=== PATIENT | female | born 1935 | race Two or more races ===

== ENCOUNTER 2017-05-27 02:05 | Inpatient (IN) | END 2017-06-10 18:50 | disposition home health service (06) | DRG 441 ==

== ENCOUNTER 2017-07-15 14:53 | Emergency (ER) | END 2017-07-15 22:32 | disposition home or self-care (01) ==

== ENCOUNTER 2017-08-20 20:12 | Inpatient (IN) | END 2017-08-29 21:15 | disposition home health service (06) | DRG 690 ==

== ENCOUNTER 2017-12-02 11:59 | Inpatient (IN) | END 2017-12-10 18:15 | disposition home or self-care (01) | DRG 872 ==

== ENCOUNTER 2018-09-01 15:53 | Emergency (ER) | payer MEDICARE, OTHER ==
[~2018-09-01] VITALS: Wt 62.7 kg
[~2018-09-01 15:53] MED LIST: GABA300C16 PO; OMEP40CA6 PO; SPIR50TA PO
[2018-09-01] MEDS ORDERED: morphine 4 MG/ML VIAL IV STA (18:31)
[2018-09-01] MEDS ORDERED: ONDANSETRON 4 MG INJ IV STA (18:31)
[2018-09-01] MEDS ORDERED: SOD CHLORIDE 0.9% 500 ML IV STA (18:31)
[2018-09-01] MEDS ORDERED: CEFEPIME 1GM/50 ML (PMX) 50 ML IVPB ONE (19:30)
--- NOTE | 2018-09-01 20:25 | ERD ---
ER Documentation Chief Complaint Chief Complaint FLANK PAIN X 5 DAYS HPI 83-year-old woman with a history of urinary incontinence, chronic Lomeli catheter that was replaced last week presents with bilateral flank pain and suprapubic p ain times 2-3 days. She has had no fevers or chills, no vomiting or diarrhea, no complaints of chest pain or shortness of breath. Son was at the bedside denies that she has used antibiotics recently. ROS All systems reviewed and are negative except as per history of present illness. 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, portal hypertension, CHF, recurrent urinary retention, hypertension, urinary incontinence with chronic Lomeli catheter History of Surgery: Yes (CATARACT) Anesthesia Reaction: No Hx Neurological Disorder: No Hx Respiratory Disorders: No Hx Cardiac Disorders: Yes (HX CHF) Hx Psychiatric Problems: No Hx Miscellaneous Medical Probl: Yes (indwelling lomeli) Hx Alcohol Use: No Hx Substance Use: No Hx Tobacco Use: No Smoking Status: Never smoker FmHx Family History: No diabetes Physical Exam Vitals Vital Signs Date Temp Pulse Resp B/P (MAP) Pulse Ox O2 O2 Flow FiO2 Time Delivery Rate 09/01/18 80 18 141/95 96 Room Air 20:40 (110) 09/01/18 86 20 126/86 96 Room Air 18:35 (99) 09/01/18 98.2 92 18 147/82 99 16:19 (103) Physical Exam Const: Elderly woman, well-developed, no apparent distress, afebrile Head: Atraumatic Eyes: Normal Conjunctiva ENT: Normal External Ears, Nose and Mouth. Neck: Full range of motion. No meningismus. Resp: Clear to auscultation bilaterally Cardio: Regular rate and rhythm, no murmurs Abd: Soft, non tender, non distended. Normal bowel sounds Skin: No petechiae or rashes Back: No midline or flank tenderness Ext: No cyanosis, or edema Neur: Awake and alert x2, no focal deficits or facial asymmetry Psych: Normal Mood and Affect Result Diagram: 09/01/18184209/01/181842 Results 24 hrs Laboratory Tests Test 09/01/18 18:43 09/01/18 18:44 09/01/18 18:53 White Blood Count 4.3 10^3/ul Red Blood Count 4.08 10^6/ul Hemoglobin 10.2 g/dl Hematocrit 34.5 % Mean Corpuscular Volume 84.6 fl Mean Corpuscular Hemoglobin 25.0 pg Mean Corpuscular 29.6 g/dl Hemoglobin Concent Red Cell Distribution Width 17.0 % Platelet Count 96 10^3/UL Mean Platelet Volume 9.2 fl Immature Granulocytes % 0.500 % Neutrophils % 58.4 % Lymphocytes % 29.1 % Monocytes % 9.9 % Eosinophils % 1.6 % Basophils % 0.5 % Nucleated Red Blood Cells % 0.0 /100WBC Immature Granulocytes # 0.020 10^3/ul Neutrophils # 2.5 10^3/ul Lymphocytes # 1.2 10^3/ul Monocytes # 0.4 10^3/ul Eosinophils # 0.1 10^3/ul Basophils # 0.0 10^3/ul Nucleated Red Blood Cells # 0.0 10^3/ul Sodium Level 137 mmol/L Potassium Level 4.5 mmol/L Chloride Level 107 mmol/L Carbon Dioxide Level 24 mmol/L Anion Gap 6 Blood Urea Nitrogen 15 mg/dl Creatinine 0.80 mg/dl Est Glomerular Filtrat mL/min Rate mL/min Glucose Level 90 mg/dl Calcium Level 9.3 mg/dl Total Bilirubin 0.8 mg/dl Direct Bilirubin 0.00 mg/dl Indirect Bilirubin 0.8 mg/dl Aspartate Amino 70 IU/L Transf (AST/SGOT) Alanine 31 IU/L Aminotransferase (ALT/SGPT) Alkaline Phosphatase 170 IU/L Total Protein 8.2 g/dl Albumin 3.3 g/dl Globulin 4.90 g/dl Albumin/Globulin Ratio 0.67 Lipase 298 U/L Urine Color YELLOW Urine Clarity SLIGHTLY CLOUDY Urine pH 5.0 Urine Specific [place] 1.008 Urine Ketones NEGATIVE mg/dL Urine Nitrite POSITIVE mg/dL Urine Bilirubin NEGATIVE mg/dL Urine Urobilinogen NEGATIVE mg/dL Urine Leukocyte Esterase 2+ Reji/ul Urine Microscopic RBC 13 /HPF Urine Microscopic WBC 30 /HPF Urine Bacteria MODERATE /HPF Urine Hemoglobin 2+ mg/dL Urine Glucose NEGATIVE mg/dL Urine Total Protein NEGATIVE mg/dl Bedside Urine pH (LAB) 5.5 Bedside Urine Protein (LAB) Negative Bedside Urine Glucose (UA) Negative Bedside Urine Ketones (LAB) Negative Bedside Urine Blood 2+ Bedside Urine Nitrite (LAB) Positive Bedside Urine Leukocyte Esterase 1+ (L Current Medications Medications Dose Sig/Elbert Start Time Status Last (Trade) Ordered Route PRN Stop Time Admin Dose Reason Admin Sodium 500 ml @ Q1H STAT 09/01/18 DC 09/01/18 Chloride 500 mls/hr IV 18:31 18:48 09/01/18 19:30 Morphine 4 mg ONCE STAT 09/01/18 DC 09/01/18 Sulfate IV 18:31 18:47 (morphine) 09/01/18 18:33 Ondansetron 4 mg ONCE STAT 09/01/18 DC 09/01/18 HCl (Zofran IV 18:31 18:47 Inj) 09/01/18 18:33 Cefepime HCl 50 ml @ ONCE ONCE 09/01/18 DC 09/01/18 100 mls/hr IVPB 19:30 19:35 09/01/18 19:59 100 mg ONCE ONCE 09/01/18 DC 09/01/18 Phenazopyridi PO 20:30 20:28 ne HCl 09/01/18 20:31 (Pyridium) Procedures/MDM IV line was established patient was placed on satellite project site monitor rhythm strip revealed a sinus rhythm at about 80 bpm with upright P and T waves. Patient was afebrile CT scan of the abdomen and pelvis without contrast was performed,IMPRESSION: 1. Nodular liver surface, compatible with cirrhosis. 2. Mild pulmonary emphysema. 3. Coronary arterial and aortoiliac atherosclerotic calcifications. 4. Lomeli catheter balloon is within the urinary bladder. Multiple bladder diverticula and multiple small bladder calculi are again noted, unchanged. 5. Osteopenia. Chronic moderate compression deformity of T12. Chronic left sacroiliac joint erosive/degenerative changes, grossly stable. 6. No evidence of bowel obstruction, mass, lymphadenopathy, or acute inflammatory process. I administered morphine 4 mg IV, Zofran 4 mg IV, 1 L normal saline IV and cefepime 1 g IV. Lomeli catheter was replaced. Patient also received Pyridium 100 mg p.o. x1 CBC and electrolytes were normal, liver function tests were normal, urinalysis was positive for infection. Patient's vital signs are normal and pain has resolved, she wants to go home and her son who is at the bedside also prefers outpatient therapy. She will be to discharge and prescribed oral antibiotics. Differential diagnoses considered, included but not limited to acute coronary syndrome, pulmonary embolism, aortic dissection, abdominal aortic aneurysm, sepsis, stroke, meningitis, encephalitis, pneumonia, appendicitis, c holecystitis, bowel obstruction, pyelonephritis, nephrolithiasis, cystitis, as well as metabolic, hematologic, and electrolyte abnormalities. As well as abscess, cellulitis, fractures, and dislocations. Patient feels much better at this time, and vital signs are normal, symptoms have improved. I did give strict instructions to return to the ED if symptoms continue or worsen, patient will otherwise follow-up with primary care physician. Patient understood instructions and agreed to plan. Disclaimer: Inadvertent spelling and grammatical errors are likely due to EHR/dictation software use and do not reflect on the overall quality of patient care. Also, please note that the electronic time recorded on this note does not necessarily reflect the actual time of the patient encounter. Departure Diagnosis: Primary Impression: Urinary incontinence Urinary Incontinence type: unspecified incontinence Qualified Codes: R32 - Unspecified urinary incontinence Additional Impression: Acute UTI Condition: BASIL Pike MD Sep 01, 2018 20:25
[2018-09-01] MEDS ORDERED: PHEN-537 PO (20:26)
[2018-09-01] MEDS ORDERED: CEPH-443 PO (20:26)
[2018-09-01] MEDS ORDERED: PHENAZOPYRIDINE 100 MG TAB PO ONE (20:30)
[2018-09-01 20:40] VITALS: BP 141/95; PULSE 80; RESP 18
== END 2018-09-01 20:40 | disposition home or self-care (01) ==
LOC: E/R 15:53
DX: N39.0 Urinary tract infection, site not specified (principal); I11.0 Hypertensive heart disease with heart failure; I50.9 Heart failure, unspecified
CPT/HCPCS: 36415; 51702; 74176; 80053; 81001; 83690; 85025; 87086; 96374; 96375; 99285; J0692; J2270; J2405; J7040; 81003

== ENCOUNTER 2018-09-03 09:31 | Emergency (ER) | payer MEDICARE, OTHER ==
[~2018-09-03] VITALS: Ht 154.9 cm; Wt 62.0 kg
[~2018-09-03 09:31] MED LIST changes: +CEPH-443 PO; +PHEN-537 PO
[2018-09-03 09:33] VITALS: Ht 154.9 cm; Wt 62.0 kg
--- NOTE | 2018-09-03 10:14 | ERD ---
ER Documentation Chief Complaint Chief Complaint pt is bib son with c/o back pain /dysuria since Sunday HPI This is an 83-year-old female with a past medical history of CHF, GERD, neuropathy, chronic urinary incontinence status post chronic indwelling Lomeli catheter who is presenting again to the emergency department for persistent moderate aching sore burning suprapubic and lower back pain. The patient presented to the emergency department on September 01 for similar symptoms. She was diagnosed with a urinary tract infection. There is no evidence of pyelonephritis or nephrolithiasis. She had a reassuring workup and was ultimately discharged with prescriptions for Pyridium and Keflex. The patient does have a urine culture completed that reveals resistance to cephalosporins. Her UTI is sensitive to Macrobid and Bactrim. The patient presents today for persistent discomfort. She continues to deny any fever or chills. She has not had any nausea or vomiting. She has not had any constipation or diarrhea. She has not had any black or bloody or tarry stools. The patient does report that her urine has turned an orange color since being started on the Pyridium. The patient has had no headache or vision changes. The patient does not endorse neck pain. The patient denies lightheadedness or dizziness. The patient has had no chest pain or trouble breathing. The patient has had no focal deficits. The patient has had no weakness or numbness or tingling to the face or extremities. ROS All systems reviewed and are negative except as per history of present illness. Medications Home Meds Active Scripts Phenazopyridine Hcl* (Pyridium*) 100 Mg Tab, 100 MG PO BID PRN for URINARY PAIN, #6 TAB Prov:BASIL JORDAN MD 09/01/18 Cephalexin* (Keflex*) 500 Mg Capsule, 500 MG PO TID for 7 Days, CAP Prov:BASIL JORDAN MD 09/01/18 Reported Medications Gabapentin* (Gabapentin*) 300 Mg Capsule, 300 MG PO TID, #90 CAP 12/02/17 Omeprazole* (Omeprazole*) 40 Mg Capsule.dr, 40 MG PO DAILY, #30 CAP 12/02/17 Spironolactone* (Aldactone*) 50 Mg Tablet, 50 MG PO DAILY, #30 TAB 12/02/17 Allergies Allergies: Coded Allergies: No Known Allergy (Unverified , 12/02/17) PMhx/Soc History of Surgery: Yes (CATARACT) Anesthesia Reaction: No Hx Neurological Disorder: No Hx Respiratory Disorders: No Hx Cardiac Disorders: Yes (CHF) Hx Psychiatric Problems: No Hx Miscellaneous Medical Probl: Yes (indwelling lomeli) Hx Alcohol Use: No Hx Substance Use: No Hx Tobacco Use: No FmHx Family History: No diabetes Physical Exam Vitals Vital Signs Date Temp Pulse Resp B/P (MAP) Pulse Ox O2 O2 Flow FiO2 Time Delivery Rate 09/03/18 97.8 66 18 152/71 96 09:33 (98) Physical Exam Const: No apparent distress, well-developed, well-nourished Head: Normocephalic, Atraumatic Eyes: Normal Conjunctiva. Extraocular movements grossly intact. ENT: Normal External Ears, Nose and Mouth. Neck: Full range of motion. No meningismus. Resp: Clear to auscultation bilaterally, No wheezes, rales or rhonchi Cardio: Regular rate and rhythm. No murmurs, rubs or gallops Abd: Soft, non distended. Mild suprapubic tenderness. Normal bowel sounds : Lomeli catheter in place Skin: No petechiae or rashes Back: No midline tenderness. No CVA tenderness Ext: No cyanosis, or edema Neur: Awake and alert, oriented 4. Cranial nerves intact. No facial droop. Normal strength, sensation and coordination. Psych: Normal Mood and Affect Procedures/MDM MDM The patient's presentation warrants further investigation. Previous medical records, if available, were reviewed. LABS The patient's laboratory testing was reviewed from 2 days ago. No emergent treatment was required unless described below. CBC: Mild leukopenia without shift, no evidence of a systemic infection. Mild normocytic anemia, not emergent. Thrombocytopenia, chronic. Chemistry: No E/o severe acidosis or alkalosis or renal failure or diabetic ketoacidosis. Mild transaminitis, known cirrhosis. Lipase: No E/o pancreatitis Urine: E/o acute infection without hematuria Urinalysis was also sent off today. IMAGING Imaging and Radiology interpretation reviewed from [address] Abd/Pelvis 1. Nodular liver surface, compatible with cirrhosis. 2. Mild pulmonary emphysema. 3. Coronary arterial and aortoiliac atherosclerotic calcifications. 4. Lomeli catheter balloon is within the urinary bladder. Multiple bladder diverticula and multiple small bladder calculi are again noted, unchanged. 5. Osteopenia. Chronic moderate compression deformity of T12. Chronic left sacroiliac joint erosive/degenerative changes, grossly stable. 6. No evidence of bowel obstruction, mass, lymphadenopathy, or acute inflammatory process. Electronically viewed and signed by Cuong Pimentel MD, on 09/01/2018 19:54 TREATMENT/DISPOSITION The patient presents for persistent low back and suprapubic discomfort. The patient has a known urinary tract infection, and was discharged with prescriptions for Pyridium and Keflex. The urine culture is back and is not sensitive to Keflex. It is sensitive to Macrobid and Bactrim. It is good to avoid Macrobid in elderly population. I do not typically use Bactrim in the [facility] population given its interaction with multiple medications. However, the patient is not on any medications that it will emergently interact with. I do feel that Bactrim would be appropriate in this setting. The patient reports no worsening of symptoms. She had a full workup performed [address] including a [address] of the abdomen and pelvis that did not reveal any emergent pathology. I did send off a repeat urinalysis, but I do not feel that further laboratory studies are warranted at this time. I do not suspect pyelonephritis. I do not suspect nephrolithiasis. The patient was given a dose of Toradol in the emergency department to help with her discomfort. DISCHARGE Upon reevaluation of the patient, symptoms have improved. No emergent diagnoses were identified. At this time, I feel that the patient stable for discharge. The patient was instructed to follow-up with a primary care physician in 1-3 days. The patient will be given strict precautions with which to return to the emergency department. Prescriptions: Bactrim. The patient's family was instructed to stop the Keflex. She may continue to use the Pyridium as previously prescribed. The patient's blood pressure was elevated at greater than 120/80 while in the emergency department. The patient was otherwise stable with no evidence of hypertensive urgency or emergency. The patient does not require admission for blood pressure control. I have discussed with the patient the risks of hypertension. I have instructed the patient to return to the ER for any new or worsening symptoms including chest pain, shortness of breath, headache, blurred vision, confusion, nausea, vomiting or LOC. I have advised the patient to follow up with the primary care physician for outpatient monitoring and treatment for hypertension in 1-3 days. Disclaimer: Inadvertent spelling and grammatical errors are likely due to EHR/dictation software use and do not reflect on the overall quality of patient care. Note that the electronic time recorded on this note does not necessarily reflect the actual time of the patient encounter. Departure Diagnosis: Primary Impression: Urinary tract infection Urinary tract infection type: acute cystitis Hematuria presence: without hematuria Qualified Codes: N30.00 - Acute cystitis without hematuria Additional Impressions: Dysuria Suprapubic pain Low back pain Chronicity: unspecified Back pain laterality: bilateral Sciatica presence: without sciatica Qualified Codes: M54.5 - Low back pain Chronic indwelling Lomeli catheter Condition: Stable Patient Instructions: Understanding Urinary Tract Infections (UTIs) Additional Instructions: Thank you for for coming to [facility] for your care today. Please ask your nurse or provider if you have questions about your care today and do not leave until all your questions have been answered. Please use any me dications given as directed and follow-up with your doctor (or the doctor you were referred to) in the next 1-3 days. If you do not have a primary care doctor you may follow up at the [facility] or [facility] (listed below). You may also use motrin and tylenol as needed for fever and/or pain unless instructed otherwise by your provider or nurse. Indications for more urgent follow-up have been discussed, but you may return to the Emergency Department at ANY time for any worrisome or worsening symptoms. If you have abdominal pain, please know that no test or exam you received is perfect and you should follow up within 8 hours for continued pain. If you had any imaging studies today, such as an X-Ray or CT Scan, these studies will be reviewed later by a radiologist. You will be called if there are important findings that were not identified today, so make sure the contact i nformation you provided at registration is correct. If you received any narcotic pain control medicine today, such as Vicodin, Morphine or Dilaudid, your coordination and judgment may be affected for a number of hours. Please do not drive or operate heavy machinery, and you may want someone to assist you at home. If you were given a prescription for narcotic medication, be aware that it is very addictive- use sparingly and only if necessary. PLEASE SEEK FURTHER EVALUATION AND MANAGEMENT AT YOUR DOCTORS OFFICE WITHIN THE NEXT 1-3 DAYS. IT IS YOUR RESPONSIBILITY TO MAKE AN APPOINTMENT FOR FOLOW-UP CARE. IF YOU HAVE A PRIMARY DOCTOR, PLEASE CALL THEIR OFFICE TO SCHEDULE AN APPOINTMENT FOR FOLLOW UP. IF YOU DO NOT HAVE A PRIMARY DOCTOR YOU CAN CALL OUR PHYSICIAN REFERRAL HOTLINE AT IF YOU CAN NOT AFFORD TO SEE A PHYSICIAN YOU CAN CHOSE FROM THE FOLLOWING [facility]: [facility] [address] [facility] [address] [facility]. [facility] [address] [facility] [address] [facility] [address] [facility]. [facility]. [address] DARBY WILSON MD Sep 03, 2018 10:02
[2018-09-03] MEDS ORDERED: KETOROLAC 15 MG INJ IM STA (10:15)
[2018-09-03] MEDS ORDERED: SULF1TAB31 PO (10:22)
[2018-09-03] MEDS ORDERED: IBUP-1561 PO (10:34)
[2018-09-03 10:37] VITALS: BP 145/80; PULSE 76; RESP 24
== END 2018-09-03 10:37 | disposition home or self-care (01) ==
LOC: E/R 09:31
DX: N30.00 Acute cystitis without hematuria (principal); M54.5 Low back pain; I50.9 Heart failure, unspecified; T83.9XXA Unspecified complication of genitourinary prosthetic device, implant and graft, initial encounter; Y73.2 Prosthetic and other implants, materials and accessory gastroenterology and urology devices associated with adverse incidents
CPT/HCPCS: 81001; 96372; 99284; J1885

== ENCOUNTER 2018-09-06 06:15 | Inpatient (IN) | payer MEDICARE, OTHER ==
[~2018-09-06] VITALS: Ht 175.3 cm; Wt 65.3 kg
[~2018-09-06 06:15] MED LIST changes: +IBUP-1561 PO; +SULF1TAB31 PO
[2018-09-06] MEDS ORDERED: CEFEPIME 2GM/50 ML (PMX) 50 ML IVPB STA (07:29)
[2018-09-06] MEDS ORDERED: KETOROLAC 15 MG INJ IV STA (07:29)
[2018-09-06] MEDS ORDERED: SODIUM CHLORIDE 0.9% 1L BAG IV* STA (07:29)
[2018-09-06] MEDS ORDERED: ACETAMINOPHEN 325 MG TAB PO PRN ×2 (08:00→17:00)
[2018-09-06] MEDS ORDERED: ONDANSETRON 4 MG INJ IV PRN ×2 (08:00→17:00)
--- NOTE | 2018-09-06 11:31 | ERD ---
ER Documentation Chief Complaint Chief Complaint BILAT FLANK PAIN HPI Patient is an 83-year-old female with hypertension who presents for flank pain. The patient has a urine infection Keflex initially and then switched over to Bactrim which was sensitive per the previous culture however the patient is still having symptoms. Upon review of old medical records this is the patient's seventh visit to the ER is in 2018. ROS All systems reviewed and are negative except as per history of present illness. Medications Home Meds Active Scripts Ibuprofen* (Motrin*) 400 Mg Tab, 400 MG PO Q6H PRN for PAIN AND OR ELEVATED TEMP, #30 TAB Prov:DARBY MENDOZA MD 09/03/18 Sulfamethoxazole/Trimethoprim* (Bactrim Ds* Tablet) 1 Each Tablet, 1 TAB PO BID, #14 TAB Prov:DARBY MENDOZA MD 09/03/18 Discontinued Reported Medications Gabapentin* (Gabapentin*) 300 Mg Capsule, 300 MG PO TID, #90 CAP 12/02/17 Omeprazole* (Omeprazole*) 40 Mg Capsule.dr, 40 MG PO DAILY, #30 CAP 12/02/17 Spironolactone* (Aldactone*) 50 Mg Tablet, 50 MG PO DAILY, #30 TAB 12/02/17 Discontinued Scripts Phenazopyridine Hcl* (Pyridium*) 100 Mg Tab, 100 MG PO BID PRN for URINARY PAIN, #6 TAB Prov:BASIL JORDAN MD 09/01/18 Cephalexin* (Keflex*) 500 Mg Capsule, 500 MG PO TID for 7 Days, CAP Prov:BASIL JORDAN MD 09/01/18 Allergies Allergies: Coded Allergies: No Known Allergy (Unverified , 09/06/18) PMhx/Soc History of Surgery: Yes (CATARACT) Anesthesia Reaction: No Hx Neurological Disorder: No Hx Respiratory Disorders: No Hx Cardiac Disorders: Yes (CHF) Hx Psychiatric Problems: No Hx Miscellaneous Medical Probl: Yes (indwelling lomeli) Hx Alcohol Use: No Hx Substance Use: No Hx Tobacco Use: No Smoking Status: Never smoker FmHx Family History: No diabetes Physical Exam Vitals Vital Signs Date Temp Pulse Resp B/P (MAP) Pulse Ox O2 O2 Flow FiO2 Time Delivery Rate 09/06/18 97.6 77 18 162/91 99 Room Air 09:30 (114) 09/06/18 97.6 101 18 132/68 97 06:18 (89) Physical Exam Const: Moderate distress Head: Atraumatic Eyes: Normal Conjunctiva ENT: Normal External Ears, Nose and Mouth. Neck: Full range of motion. No meningismus. Resp: Clear to auscultation bilaterally Cardio: Regular rate and rhythm, no murmurs Abd: Soft, non tender, non distended. Normal bowel sounds Skin: No petechiae or rashes Back: No midline or flank tenderness Ext: No cyanosis, or edema Neur: Awake and alert Psych: Normal Mood and Affect Result Diagram: 09/06/1880409/06/18804 Results 24 hrs Laboratory Tests Test 09/06/18 08:01 09/06/18 08:05 09/06/18 09:00 POC Venous Lactate 1.9 mmol/L White Blood Count 3.2 10^3/ul Red Blood Count 4.09 10^6/ul Hemoglobin 10.4 g/dl Hematocrit 34.5 % Mean Corpuscular Volume 84.4 fl Mean Corpuscular Hemoglobin 25.4 pg Mean Corpuscular 30.1 g/dl Hemoglobin Concent Red Cell Distribution Width 17.7 % Platelet Count 96 10^3/UL Mean Platelet Volume 10.1 fl Immature Granulocytes % 0.300 % Neutrophils % 65.0 % Lymphocytes % 22.9 % Monocytes % 10.5 % Eosinophils % 1.0 % Basophils % 0.3 % Nucleated Red Blood Cells % 0.0 /100WBC Immature Granulocytes # 0.010 10^3/ul Neutrophils # 2.1 10^3/ul Lymphocytes # 0.7 10^3/ul Monocytes # 0.3 10^3/ul Eosinophils # 0.0 10^3/ul Basophils # 0.0 10^3/ul Nucleated Red Blood Cells # 0.0 10^3/ul Prothrombin Time 14.9 Sec Prothrombin Time Ratio 1.2 INR International 1.16 Normalized Ratio Activated Partial Thromboplast 33.0 Sec Time Sodium Level 139 mmol/L Potassium Level 4.5 mmol/L Chloride Level 107 mmol/L Carbon Dioxide Level 23 mmol/L Anion Gap 9 Blood Urea Nitrogen 13 mg/dl Creatinine 0.99 mg/dl Est Glomerular Filtrat mL/min Rate mL/min Glucose Level 98 mg/dl Calcium Level 9.3 mg/dl Total Bilirubin 0.6 mg/dl Direct Bilirubin 0.00 mg/dl Indirect Bilirubin 0.6 mg/dl Aspartate Amino 67 IU/L Transf (AST/SGOT) Alanine 27 IU/L Aminotransferase (ALT/SGPT) Alkaline Phosphatase 150 IU/L Troponin I < 0.012 ng/ml Total Protein 7.9 g/dl Albumin 3.4 g/dl Globulin 4.50 g/dl Albumin/Globulin Ratio 0.75 Urine Color YELLOW Urine Clarity CLEAR Urine pH 5.0 Urine Specific [place] 1.005 Urine Ketones NEGATIVE mg/dL Urine Nitrite NEGATIVE mg/dL Urine Bilirubin NEGATIVE mg/dL Urine Urobilinogen NEGATIVE mg/dL Urine Leukocyte Esterase NEGATIVE Reji/ul Urine Microscopic RBC 2 /HPF Urine Microscopic WBC 2 /HPF Urine Bacteria FEW /HPF Urine Hemoglobin 1+ mg/dL Urine Glucose NEGATIVE mg/dL Urine Total Protein NEGATIVE mg/dl Current Medications Medications Dose Sig/Elbert Start Time Status Last (Trade) Ordered Route PRN Stop Time Admin Dose Reason Admin Sodium 1,640 ml BOLUS OVER 2 09/06/18 DC 09/06/18 Chloride HOURS STAT 07:29 08:11 (NS) IV* 09/06/18 07:30 Cefepime HCl 50 ml @ ONCE STAT 09/06/18 DC 09/06/18 100 mls/hr IVPB 07:29 08:11 09/06/18 07:58 Ketorolac 15 mg ONCE STAT 09/06/18 DC 09/06/18 Tromethamine IV 07:29 08:12 (Toradol) 09/06/18 07:30 Ondansetron 4 mg BRIDGE ORDER 09/06/18 HCl (Zofran PRN IV 08:00 Inj) NAUSEA/VOMITI 09/07/18 07:59 NG 650 mg ER BRIDGE 09/06/18 Acetaminophen PRN PO 08:00 (Tylenol .MILD PAIN 09/07/18 07:59 Tab) 1-3 OR TEMP Procedures/MDM EKG read by me: Rate/Rhythm: Regular rate and rhythm at a normal rate Intervals: Normal Impression: No evidence of ischemia or arrhythmia Chest x-ray read by radiology. Sepsis Documentation: Patient's infectious symptoms have not stabilized and the patient is at risk of rapid decompensation. The patient will be admitted for careful hydration, antibiotic therapy, and infectious source control. SEVERE SEPSIS CRITERIA: Infectious source: Pyelonephritis End organ damage indicated by: No endorgan damage at this time SEPSIS MANAGEMENT Time of recognition of sepsis: 804. Time of recognition of severe sepsis: No severe sepsis at this time. Time of recognition of septic shock: No septic shock at this time. 3 HOUR BUNDLE Blood cultures x 2 before broad-spectrum antibiotics: Yes 30 ml/kg NS bolus completed Initial lactate 1.9 Repeat lactate pending SEPTIC SHOCK ASSESSMENT: No lactic acid > 4.0 No persistent hypotension (SBP < 90 or 40 mmHg drop, MAP < 65) despite 30 mL/kg IV fluid bolus VOLUME REASSESSMENT FOR SEPTIC SHOCK: No septic shock at this time PERSISTENT HYPOTENSION TREATMENT: Comfort care no Central line not Required Vasopressor started not required I considered further perfusion assessment with CVP measurement, SCVO2, bedside ultrasound volume assessment, passive leg raise, trial of further fluid bolus. And proceeded with 30 ml/kg fluid bolus of NSS, broad spectrum antibiotics, and admission. The patient requires inpatient admission as she has failed outpatient treatment at this time. I have admitted the patient to Dr. Burr is Dr. Su admitted the patient within the last year. CRITICAL CARE Critical care time 35 minutes Emergent fluid management while maintaining close respiratory support. Provision of immediate and broad-spectrum antibiotic therapy. Simultaneous assessment for possible sources in order to direct targeted therapy. Consideration for invasive and chemical support to prevent cardiopulmonary collapse. Critical care time is independent of procedures performed. Departure Diagnosis: Primary Impression: Pyelonephritis Additional Impression: Flank pain Condition: MISAEL Bernabe MD Sep 06, 2018 11:31
[2018-09-06] MEDS ORDERED: morphine 4 MG/ML VIAL IV STA (14:21)
[2018-09-06 16:10] VITALS: Ht 175.3 cm; Wt 65.3 kg
[2018-09-06] MEDS ORDERED: POTASSIUM CHLORIDE 100 ML IVPB ONE (17:00)
--- NOTE | 2018-09-06 17:01 | HP ---
Date/Time of Note Date/Time of Note DATE: 09/06/18 TIME: 16:38 Assessment/Plan VTE Prophylaxis SCD contraindicated: other Pharmacological prophylaxis: other Pharm contraindication: other Lines/Catheters IV Catheter Type (from Nrsg): Saline Lock Urinary Cath still in place: Yes Reason Cath still needed: urinary retention Assessment/Plan Assessment/Plan -Pyelonephritis admit to [facility] - ID consult- Dr Marcos notified - See admission orders - pain control - am labs - Flank PAIN 2/2 to above - Urine retention-sp indwelling cath - Nephrology consult w/ Dr Modi - Thrombocytopenia- Platelets 96; no bleeding reported - monitor CBC - CHF- was taking Aldactone but any more - will get cardiology consult for symptoms getting worse - HTN- BP stable - GERD- PPI for GI prophylaxis - SCD for DVT prophylaxis Patient seen in collaboration with Dr Burr. dw staff Result Diagram: 09/06/18 0809/06/18 0805 Results 24hrs Laboratory Tests Test 09/06/18 08:01 09/06/18 08:05 09/06/18 09:00 09/06/18 11:58 POC Venous Lactate 1.9 White Blood Count 3.2 #L Red Blood Count 4.09 L Hemoglobin 10.4 L Hematocrit 34.5 L Mean Corpuscular 84.4 Volume Mean Corpuscular 25.4 L Hemoglobin Mean Corpuscular 30.1 L Hemoglobin Concent Red Cell 17.7 H Distribution Width Platelet Count 96 L Mean Platelet Volume 10.1 Immature 0.300 Granulocytes % Neutrophils % 65.0 Lymphocytes % 22.9 Monocytes % 10.5 Eosinophils % 1.0 Basophils % 0.3 Nucleated Red Blood 0.0 Cells % Immature 0.010 Granulocytes # Neutrophils # 2.1 Lymphocytes # 0.7 L Monocytes # 0.3 Eosinophils # 0.0 Basophils # 0.0 Nucleated Red Blood 0.0 Cells # Prothrombin Time 14.9 Prothrombin Time 1.2 Ratio INR International 1.16 Normalized Ratio Activated 33.0 Partial Thromboplast Time Sodium Level 139 Potassium Level 4.5 Chloride Level 107 Carbon Dioxide Level 23 Anion Gap 9 Blood Urea Nitrogen 13 Creatinine 0.99 Est Glomerular Filtrat Rate mL/min Glucose Level 98 Calcium Level 9.3 Total Bilirubin 0.6 Direct Bilirubin 0.00 Indirect Bilirubin 0.6 Aspartate Amino 67 H Transf (AST/SGOT) Alanine 27 Aminotransferase (AL T/SGPT) Alkaline Phosphatase 150 H Troponin I < 0.012 Total Protein 7.9 Albumin 3.4 Globulin 4.50 H Albumin/Globulin 0.75 Ratio Urine Color YELLOW Urine Clarity CLEAR Urine pH 5.0 Urine Specific 1.005 [place] Urine Ketones NEGATIVE Urine Nitrite NEGATIVE Urine Bilirubin NEGATIVE Urine Urobilinogen NEGATIVE Urine Leukocyte NEGATIVE Esterase Urine Microscopic 2 RBC Urine Microscopic 2 WBC Urine Bacteria FEW A Urine Hemoglobin 1+ H Urine Glucose NEGATIVE Urine Total Protein NEGATIVE Lactic Acid Level 2.1 *H HPI/ROS Admit Date/Time Admit Date/Time Sep 06, 2018 at 15:57 Hx of Present Illness BILAT FLANK PAIN HPI Patient is an 83-year-old female with hypertension who presents for flank pain. The patient has a urine infection Keflex initially and then switched over to Bactrim which was sensitive per the previous culture however the patient is still having symptoms. Upon review of old medical records this is the patient's seventh visit to the ER is in 2018. ROS All systems reviewed and are negative except as per history of present illness. Medications Home Meds Active Scripts Ibuprofen* (Motrin*) 400 Mg Tab, 400 MG PO Q6H PRN for PAIN AND OR ELEVATED TEMP, #30 TAB Prov:DARBY MENDOZA MD 09/03/18 Sulfamethoxazole/Trimethoprim* (Bactrim Ds* Tablet) 1 Each Tablet, 1 TAB PO BID, #14 TAB Prov:DARBY MENDOZA MD 09/03/18 Discontinued Reported Medications Gabapentin* (Gabapentin*) 300 Mg Capsule, 300 MG PO TID, #90 CAP 12/02/17 Omeprazole* (Omeprazole*) 40 Mg Capsule.dr, 40 MG PO DAILY, #30 CAP 12/02/17 Spironolactone* (Aldactone*) 50 Mg Tablet, 50 MG PO DAILY, #30 TAB 12/02/17 Discontinued Scripts Phenazopyridine Hcl* (Pyridium*) 100 Mg Tab, 100 MG PO BID PRN for URINARY PAIN, #6 TAB Prov:BASIL JORDAN MD 09/01/18 Cephalexin* (Keflex*) 500 Mg Capsule, 500 MG PO TID for 7 Days, CAP Prov:BASIL JORDAN MD 09/01/18 Allergies Allergies: Coded Allergies: No Known Allergy (Unverified , 09/06/18) ROS HPI Patient is an 83-year-old female with an indwelling lomeli catheter. Patient has hx of hypertension, chf and is admitted with c/o flank pain. The patient has a urine infection -treated with Keflex initially and then on Bactrim as her culture showed sensitivity to later one. Denies any fever; chest pain, shortness of breath, palpitations, headache,blurry vision, focal weakness or numbness, bi lateral calf pain, nausea/vomitting. Patien is seen in ER; family at bed side- all Qs answered. ROS All systems reviewed and are negative except as per history of present illness. Medications Home Meds Active Scripts Ibuprofen* (Motrin*) 400 Mg Tab, 400 MG PO Q6H PRN for PAIN AND OR ELEVATED TEMP, #30 TAB Prov:DARBY MENDOZA MD 09/03/18 Sulfamethoxazole/Trimethoprim* (Bactrim Ds* Tablet) 1 Each Tablet, 1 TAB PO BID, #14 TAB Prov:DARBY MENDOZA MD 09/03/18 Discontinued Reported Medications Gabapentin* (Gabapentin*) 300 Mg Capsule, 300 MG PO TID, #90 CAP 12/02/17 Omeprazole* (Omeprazole*) 40 Mg Capsule.dr, 40 MG PO DAILY, #30 CAP 12/02/17 Spironolactone* (Aldactone*) 50 Mg Tablet, 50 MG PO DAILY, #30 TAB 12/02/17 Discontinued Scripts Phenazopyridine Hcl* (Pyridium*) 100 Mg Tab, 100 MG PO BID PRN for URINARY PAIN, #6 TAB Prov:BASIL JORDAN MD 09/01/18 Cephalexin* (Keflex*) 500 Mg Capsule, 500 MG PO TID for 7 Days, CAP Prov:BASIL JORDAN MD 09/01/18 Allergies Allergies: Coded Allergies: No Known Allergy (Unverified , 09/06/18) PMhx/Soc History of Surgery: Yes (CATARACT) Anesthesia Reaction: No Hx Neurological Disorder: No Hx Respiratory Disorders: No Hx Cardiac Disorders: Yes (CHF) Hx Psychiatric Problems: No Hx Miscellaneous Medical Probl: Yes (indwelling lomeli) Hx Alcohol Use: No Hx Substance Use: No Hx Tobacco Use: No Smoking Status: Never smoker PMH/Family/Social Past Medical History PMhx/Soc History of Surgery: Yes (CATARACT) Anesthesia Reaction: No Hx Neurological Disorder: No Hx Respiratory Disorders: No Hx Cardiac Disorders: Yes (CHF) Hx Psychiatric Problems: No Hx Miscellaneous Medical Probl: Yes (indwelling lomeli) Hx Alcohol Use: No Hx Substance Use: No Hx Tobacco Use: No Smoking Status: Never smoker FmHx Family History: No diabetes Medications Current Medications Ondansetron HCl (Zofran Inj) 4 mg BRIDGE ORDER PRN IV NAUSEA/VOMITING; Start 09/06/18 at 08:00; Stop 09/07/18 at 07:59 Acetaminophen (Tylenol Tab) 650 mg ER BRIDGE PRN PO .MILD PAIN 1-3 OR TEMP; Start 09/06/18 at 08:00; Stop 09/07/18 at 07:59 Coded Allergies: No Known Allergy (Unverified , 09/06/18) Past Surgical History Past Surgical Hx: no surgical history Family History Significant Family History: no pertinent family hx Social History Alcohol Use: none Smoking Status: Never smoker Drug Use: none Exam/Review of Systems Vital Signs Vitals Vital Signs Date Temp Pulse Resp B/P (MAP) Pulse Ox O2 O2 Flow FiO2 Time Delivery Rate 09/06/18 97.6 80 18 137/85 96 Room Air 15:14 (102) Exam Constitutional: alert, well developed Psych: nl mood/affect Head: atraumatic Eyes: nl lids, nl sclera ENMT: nl external ears & nose Neck: non-tender Respiratory: diminished breath sounds Cardiovascular: nl pulses, other Gastrointestinal: soft, non-tender Musculoskeletal: nl extremities to inspection Extremities: normal pulses Neurological: nl speech Skin: nl turgor Lymph: nontender ABRAHAM DOYLE Sep 06, 2018 16:49
--- NOTE | 2018-09-06 17:47 | CONS ---
DATE OF ADMISSION: 09/06/2018 DATE OF CONSULTATION: 09/06/2018 TYPE OF CONSULTATION: Infectious Disease. REASON FOR CONSULTATION: Antibiotic management. HISTORY OF PRESENT ILLNESS: Karly Ibarra is an 83-year-old female who comes in with bilateral flank p ain and is being seen for antibiotic management. Past problems include: 1. Hypertension. 2. Status post cataract surgery with lens implants. 3. Congestive heart failure. 4. Indwelling [place] catheter. Acutely, the patient had a urinary tract infection and was placed on Keflex then switch to Bactrim, w hich should have been effective, but the patient still is having symptoms. Therefore, she was admitt ed. On admission, white count was 3.2, H and H 10.4 and 34.5, platelet count 96,000. BUN and creati nine 13/0.99, glucose of 98. PHYSICAL EXAMINATION: GENERAL: The patient is in mild distress. VITAL SIGNS: Stable. She is afebrile. SKIN: Without generalized rash. HEENT: Within normal limits. NECK: Supple. LYMPH NODES: None palpable. CHEST: Decreased breath sounds at the bases. HEART: Without murmur or gallop. ABDOMEN: Soft and nontender, without organosplenomegaly or masses. EXTREMITIES: Without cyanosis, clubbing, or edema. RECTAL AND GENITAL: Deferred. NEUROLOGIC: No focal neurological abnormality. LABORATORY DATA: Her white count was 3.2 with 65% neutrophils. A chest x-ray showed no acute infilt rate. She has chronic right middle lobe atelectasis and she was placed on cefepime. Cultures of cou rse are pending, blood, urine, stool. IMPRESSION AND PLAN: It would be interesting to have the culture and sensitivity of the initial orga nism. However, the cefepime should be adequate at this time. She probably has pyelonephritis and ma y have fevers which may last for up to a week. I will dictate my findings to, I believe, Dr. Jarod hernandez Dictated By: BERRY LARSEN MD, JD/MOLLY Conf#: [id number] DID#: [id number]
[2018-09-06] MEDS: DEXTROSE 5%-0.45% NACL 1,000 ML IV SCH (18:02)
--- NOTE | 2018-09-06 19:08 | CONS ---
DATE OF ADMISSION: 09/06/2018 DATE OF CONSULTATION: TYPE OF CONSULTATION: Gastroenterology. Dear Dr. Saucedo: Thank you for asking me to see Ms. Ibarra in GI consultation. HISTORY OF PRESENT ILLNESS: The patient, as you know, is an 83-year-old [place] female, is admitted t o the hospital because of urinary tract infection. Apparently, she was treated as an outpatient whic h did not respond to treatment; hence, she is admitted to the hospital. She has abnormal liver funct ions; hence a GI consultation is requested. Upon discussion with Dr. Saucedo, it is known that she has hepatitis C and also cirrhosis. The patient denies for having any nausea, vomiting, abdominal pain or GI bleeding. SOCIAL HISTORY: The patient does not smoke or drink. PAST MEDICAL HISTORY: Indicates history of hypertension. MEDICATIONS PRIOR TO ADMISSION: Include: 1. Motrin. 2. Bactrim. 3. Gabapentin. 4. Omeprazole. 5. Aldactone. 6. Pyridium. 7. Keflex. In the hospital, she is on: 1. Zofran. 2. Tylenol. PHYSICAL EXAMINATION: GENERAL: The patient is an 83-year-old [place] female who at this time is alert. She is not in distr ess. She is thin built. VITAL SIGNS: She is afebrile. CARDIOVASCULAR: Normal heart sounds. RESPIRATORY: Normal breath sounds. ABDOMEN: Showed unremarkable findings. LABORATORY WORKUP: AST is 67, ALT is 27, alkaline phosphatase is 150, albumin is 3.4. Potassium 4.5 . INR 1.15. WBC count 3200, hemoglobin 10.4. CLINICAL IMPRESSION: The patient is presenting with history of abnormal liver functions. She is kno wn to have hepatitis C. Perhaps, she is also known to have hepatitis C cirrhosis. I doubt if we are dealing with any malignant process of the liver. PLAN: At this time, I recommend ultrasound of the upper abdomen. Once again, Dr. Saucedo, thank you for this consultation. Dictated By: YO DIAL/MOLLY Conf#: [id number] DID#: [id number] CC: BERRY LARSEN MD; ROSITA SAUCEDO MD;*EndCC*
[2018-09-06 20:00] VITALS: BP 118/68; PULSE 87; RESP 18
[2018-09-06] MEDS: morphine 2 MG INJ IV PRN (22:00)
[2018-09-07 02:03] VITALS: BP 124/61; PULSE 80; RESP 18
[2018-09-07] MEDS: PANTOPRAZOLE (EC) 40 MG TAB PO SCH (05:23)
[2018-09-07 08:00] VITALS: BP 128/64; PULSE 87; RESP 18
[2018-09-07 14:00] VITALS: BP 129/60; PULSE 95; RESP 20
[2018-09-07] MEDS: DEXTROSE 5%-0.45% NACL 1,000 ML IV SCH (14:02)
[2018-09-07] MEDS: morphine 2 MG INJ IV PRN ×2 (14:03→20:53)
--- NOTE | 2018-09-07 15:39 | CONS ---
Assessment/Plan Assessment/Plan Hospital Course (Demo Recall) ID NOTE TOTAL ABX DAY #1 CURRENT ABX=>* Zyvox S/P Cefepime x1 24H INTERVAL SUMMARY * Awake - smiling, polite, no fevers, VSS, NAD, no complaints offered MICRO * 09/06/18 BCX (-) * 09/06/18 URINE CX: URINE CULTURE Preliminary Organism 1 ENTEROCOCCUS SPECIES COLONY COUNT 20,000 - 30,000 CFU/ml EXAM GENERAL: Afebrile, VSS, NAD, HEENT: Unremarkable, no thrush NECK: Supple, trachea midline CHEST: Equal chest rise bilaterally, without dyspnea on observation HEART: Pulse RRR ABDOMEN: Soft, NT EXTREMITIES: Warm ID ASSESSMENT 82 yo F admit with: 1. Recurrent urinary tract infection with culture growing Enterococcus 2. History of hepatitis C cirrhosis with portal hypertension and transaminitis 3. Pancytopenia. ( - )MRSA Nares INVASIVES: PIV ABX ALLERGY: KNDA CURRENT ABX=> TOTAL ABX DAY #1 CURRENT ABX=>* Zyvox S/P Cefepime x1 ID RECOMMENDATIONS 1. 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 F/U on final micro pending Consultation Date/Type/Reason Admit Date/Time Sep 06, 2018 at 15:57 Initial Consult Date Date/Time of Note DATE: 09/07/18 TIME: 15:39 Exam/Review of Systems Exam Vitals Vital Signs Date Temp Pulse Resp B/P (MAP) Pulse Ox O2 O2 Flow FiO2 Time Delivery Rate 09/07/18 98.8 95 20 129/60 96 14:00 (83) 09/06/18 Room Air 15:14 Intake and Output 09/06/18 09/06/18 09/07/18 1515:00 23:00 07:00 OutputOutput Total 1000 ml BalanceBalance -1000 ml Results Result Diagram: 09/07/18 0458 09/07/18 0458 Results 24hrs Laboratory Tests Test 09/06/18 19:00 09/07/18 04:58 Alpha Fetoprotein 140.00 H White Blood Count 2.8 L Red Blood Count 3.75 L Hemoglobin 9.4 L Hematocrit 31.8 L Mean Corpuscular Volume 84.8 Mean Corpuscular Hemoglobin 25.1 L Mean Corpuscular Hemoglobin Concent 29.6 L Red Cell Distribution Width 17.7 H Platelet Count 96 L Mean Platelet Volume 10.1 Immature Granulocytes % 0.000 L Neutrophils % 57.3 Lymphocytes % 27.0 Monocytes % 11.4 H Eosinophils % 3.6 Basophils % 0.7 Nucleated Red Blood Cells % 0.0 Immature Granulocytes # 0.000 Neutrophils # 1.6 Lymphocytes # 0.8 Monocytes # 0.3 Eosinophils # 0.1 Basophils # 0.0 Nucleated Red Blood Cells # 0.0 Sodium Level 137 Potassium Level 4.8 Chloride Level 109 Carbon Dioxide Level 24 Anion Gap 4 L Blood Urea Nitrogen 11 Creatinine 0.81 Est Glomerular Filtrat Rate mL/min Glucose Level 105 Calcium Level 8.7 Medications Medication Current Medications Dextrose/Sodium Chloride 1,000 ml @ 50 mls/hr Q20H IV Last administered on 09/07/18at 14:02; Admin Dose 50 MLS/HR; Start 09/06/18 at 17:00 Morphine Sulfate (morphine) 2 mg Q4H PRN IV SEVERE PAIN LEVEL 7-10 Last administered on 09/07/18at 14:03; Admin Dose 2 MG; Start 09/06/18 at 17:00 Pantoprazole (Protonix Tab) 40 mg DAILY@06 PO ; Start 09/07/18 at 06:00 Acetaminophen (Tylenol Tab) 650 mg Q6H PRN PO MILD PAIN(1-3)OR ELEVATED TEMP; Start 09/06/18 at 17:00 Ondansetron HCl (Zofran Inj) 4 mg Q6H PRN IV NAUSEA AND/OR VOMITING Last administered on 09/06/18at 21:57; Admin Dose 4 MG; Start 09/06/18 at 17:00 CONCHITA GUTIERREZ NP Sep 07, 2018 15:39
[2018-09-07] MEDS ORDERED: IOHEXOL 14.3 MG(I)/ML (ADULT) BTL PO ONE (18:00)
--- NOTE | 2018-09-07 18:35 | PN ---
Date/Time of Note Date/Time of Note DATE: 09/07/18 TIME: 18:34 Assessment/Plan VTE Prophylaxis Risk score (from Nsg)>0 risk: 4 SCD applied (from Nsg): Yes Lines/Catheters IV Catheter Type (from Nrsg): Peripheral IV Urinary Cath still in place: Yes Assessment/Plan Assessment/Plan -Pyelonephritis - ID consult- - pain control Flank PAIN CHF HTN GERD- PPI SCD Dw Dr Whittington Result Diagram: 09/07/188 09/07/18 0458 Results 24hrs Laboratory Tests Test 09/06/18 19:00 09/07/18 04:58 Alpha Fetoprotein 140.00 H White Blood Count 2.8 L Red Blood Count 3.75 L Hemoglobin 9.4 L Hematocrit 31.8 L Mean Corpuscular Volume 84.8 Mean Corpuscular Hemoglobin 25.1 L Mean Corpuscular Hemoglobin Concent 29.6 L Red Cell Distribution Width 17.7 H Platelet Count 96 L Mean Platelet Volume 10.1 Immature Granulocytes % 0.000 L Neutrophils % 57.3 Lymphocytes % 27.0 Monocytes % 11.4 H Eosinophils % 3.6 Basophils % 0.7 Nucleated Red Blood Cells % 0.0 Immature Granulocytes # 0.000 Neutrophils # 1.6 Lymphocytes # 0.8 Monocytes # 0.3 Eosinophils # 0.1 Basophils # 0.0 Nucleated Red Blood Cells # 0.0 Sodium Level 137 Potassium Level 4.8 Chloride Level 109 Carbon Dioxide Level 24 Anion Gap 4 L Blood Urea Nitrogen 11 Creatinine 0.81 Est Glomerular Filtrat Rate mL/min Glucose Level 105 Calcium Level 8.7 Exam/Review of Systems Exam Vitals Vital Signs Date Temp Pulse Resp B/P (MAP) Pulse Ox O2 O2 Flow FiO2 Time Delivery Rate 09/07/18 98.8 95 20 129/60 96 14:00 (83) 09/06/18 Room Air 15:14 Intake and Output 09/06/18 09/06/18 09/07/18 1515:00 23:00 07:00 OutputOutput Total 1000 ml BalanceBalance -1000 ml Constitutional: alert, well developed Psych: nl mood/affect Head: atraumatic Eyes: nl lids, nl sclera ENMT: nl external ears & nose Neck: non-tender Respiratory: clear to auscultation Cardiovascular: nl pulses, other Gastrointestinal: soft, non-tender Musculoskeletal: muscle weakness Extremities: normal pulses Neurological: nl mental status, nl speech Lymph: nontender Results Results 24hrs Laboratory Tests Test 09/06/18 19:00 09/07/18 04:58 Alpha Fetoprotein 140.00 H White Blood Count 2.8 L Red Blood Count 3.75 L Hemoglobin 9.4 L Hematocrit 31.8 L Mean Corpuscular Volume 84.8 Mean Corpuscular Hemoglobin 25.1 L Mean Corpuscular Hemoglobin Concent 29.6 L Red Cell Distribution Width 17.7 H Platelet Count 96 L Mean Platelet Volume 10.1 Immature Granulocytes % 0.000 L Neutrophils % 57.3 Lymphocytes % 27.0 Monocytes % 11.4 H Eosinophils % 3.6 Basophils % 0.7 Nucleated Red Blood Cells % 0.0 Immature Granulocytes # 0.000 Neutrophils # 1.6 Lymphocytes # 0.8 Monocytes # 0.3 Eosinophils # 0.1 Basophils # 0.0 Nucleated Red Blood Cells # 0.0 Sodium Level 137 Potassium Level 4.8 Chloride Level 109 Carbon Dioxide Level 24 Anion Gap 4 L Blood Urea Nitrogen 11 Creatinine 0.81 Est Glomerular Filtrat Rate mL/min Glucose Level 105 Calcium Level 8.7 Medications Medication Current Medications Dextrose/Sodium Chloride 1,000 ml @ 50 mls/hr Q20H IV Last administered on 09/07/18at 14:02; Admin Dose 50 MLS/HR; Start 09/06/18 at 17:00 Morphine Sulfate (morphine) 2 mg Q4H PRN IV SEVERE PAIN LEVEL 7-10 Last administered on 09/07/18at 14:03; Admin Dose 2 MG; Start 09/06/18 at 17:00 Pantoprazole (Protonix Tab) 40 mg DAILY@06 PO ; Start 09/07/18 at 06:00 Acetaminophen (Tylenol Tab) 650 mg Q6H PRN PO MILD PAIN(1-3)OR ELEVATED TEMP; Start 09/06/18 at 17:00 Ondansetron HCl (Zofran Inj) 4 mg Q6H PRN IV NAUSEA AND/OR VOMITING Last administered on 09/06/18at 21:57; Admin Dose 4 MG; Start 09/06/18 at 17:00 Linezolid (Zyvox) 600 mg BID PO ; Start 09/07/18 at 21:00 ABRAHAM DOYLE Sep 07, 2018 18:35
[2018-09-07 19:35] VITALS: BP 144/86; PULSE 101; RESP 18
[2018-09-07] MEDS: ZYVOX 600 MG TAB PO SCH (20:38)
--- NOTE | 2018-09-07 22:54 | CONS ---
DATE OF ADMISSION: 09/06/2018 DATE OF CONSULTATION: SUBJECTIVE: The patient at this time does not have any abdominal pain. She does have low back pain. She has a history of cirrhosis secondary to hepatitis C. PHYSICAL EXAMINATION: GENERAL: The patient is alert. VITAL SIGNS: Temperature 98.8, pulse is 95, blood pressure is 129/60. CARDIOVASCULAR: Normal heart sounds. RESPIRATORY: Normal breath sounds. ABDOMEN: Unremarkable. LABORATORY WORKUP: The potassium 4.8. Alpha fetoprotein is 140, which is elevated. The hemoglobin 9.4. The AST is 67, ALT is 27, alkaline phosphatase is 150. The ultrasound of the abdomen shows cirrhosis, simple cyst in the left lobe of the liver, mild gallbl adder wall thickening with no evidence of gallstones, mild right-sided hydronephrosis. CLINICAL IMPRESSION: The patient has cirrhosis secondary to hepatitis C. In view of the elevated al pha fetoprotein level, I would recommend CAT scan of the abdomen. Dictated By: YO ROACH MD NC/NTS Conf#: [id number] DID#: [id number] CC: ROSITA SAUCEDO MD;*EndCC*
[2018-09-08 02:11] VITALS: BP 117/63; PULSE 79; RESP 17
[2018-09-08] MEDS: PANTOPRAZOLE (EC) 40 MG TAB PO SCH (05:44)
[2018-09-08] MEDS ORDERED: IOHEXOL 14.3 MG(I)/ML (ADULT) BTL PO SCH (06:00)
[2018-09-08 08:01] VITALS: BP 138/70; PULSE 76; RESP 17
[2018-09-08] MEDS: DEXTROSE 5%-0.45% NACL 1,000 ML IV SCH ×2 (08:52→13:08)
[2018-09-08] MEDS: ZYVOX 600 MG TAB PO SCH ×2 (08:52→21:05)
[2018-09-08] MEDS ORDERED: SOD CHLORIDE 0.9% 100 ML ONE (11:41)
[2018-09-08] MEDS ORDERED: IOHEXOL 300MG/ML 150 ML BTL ONE (11:41)
--- NOTE | 2018-09-08 13:27 | PN ---
Date/Time of Note Date/Time of Note DATE: 09/08/18 TIME: 13:17 Assessment/Plan VTE Prophylaxis Risk score (from Ns)>0 risk: 4 SCD applied (from [facility] [place], [place]): Yes SCD contraindicated: other Pharmacological prophylaxis: other Pharm contraindication: other Lines/Catheters IV Catheter Type (from Nrsg): Peripheral IV Urinary Cath still in place: Yes Reason Cath still needed: urinary retention Assessment/Plan Assessment/Plan -Pyelonephritis - ID consult- - pain control -Leukopenia - monitor CBC - Elevated AFP - hEM /ONC follows -Hydronephrosis - urology consult- dr colin notified - pain control CHF HTN GERD- PPI SCD Dw Dr Whittington Result Diagram: 09/07/1845709/07/18457 Subjective 24 Hr Interval Summary Free Text/Dictation CT Abdomen pending Exam/Review of Systems Exam Vitals Vital Signs Date Temp Pulse Resp B/P (MAP) Pulse Ox O2 O2 Flow FiO2 Time Delivery Rate 09/08/18 97.7 76 17 138/70 94 Room Air 08:01 (92) Intake and Output 09/07/18 09/07/18 09/08/18 1414:59 22:59 06:59 IntakeIntake Total 1000 ml 500 ml OutputOutput Total 1200 ml 1200 ml 1300 ml BalanceBalance -200 ml -700 ml -1300 ml Medications Medication Current Medications Dextrose/Sodium Chloride 1,000 ml @ 50 mls/hr Q20H IV Last administered on 09/08/18at 13:08; Admin Dose 50 MLS/HR; Start 09/06/18 at 17:00 Morphine Sulfate (morphine) 2 mg Q4H PRN IV SEVERE PAIN LEVEL 7-10 Last administered on 09/07/18at 20:53; Admin Dose 2 MG; Start 09/06/18 at 17:00 Pantoprazole (Protonix Tab) 40 mg DAILY@06 PO ; Start 09/07/18 at 06:00 Acetaminophen (Tylenol Tab) 650 mg Q6H PRN PO MILD PAIN(1-3)OR ELEVATED TEMP; Start 09/06/18 at 17:00 Ondansetron HCl (Zofran Inj) 4 mg Q6H PRN IV NAUSEA AND/OR VOMITING Last administered on 09/06/18at 21:57; Admin Dose 4 MG; Start 09/06/18 at 17:00 Linezolid (Zyvox) 600 mg BID PO Last administered on 09/07/18at 20:38; Admin Dose 600 MG; Start 09/07/18 at 21:00 ABRAHAM DOYLE Sep 08, 2018 13:27
--- NOTE | 2018-09-08 14:04 | CONS ---
Assessment/Plan Assessment/Plan Hospital Course (Demo Recall) ID NOTE TOTAL ABX DAY #2 CURRENT ABX=>* Zyvox #2 + Diflucan #1 S/P Cefepime x1 24H INTERVAL SUMMARY * A/A/O -- VSS, NAD, ABD suprapubic pain improved, no fevers MICRO * 09/06/18 BCX (-) * 09/06/18 URINE CX: URINE CULTURE Final Organism 1 ENTEROCOCCUS SPECIES COLONY COUNT 20,000 - 30,000 CFU/ml Organism 2 RO ALBICANS COLONY COUNT <10,000 CFU/ml ENT SPS M.I.C. RX --------- --- AMPICILLIN >=32 R CIPROFLOXACIN >=8 R LEVOFLOXACIN >=8 R PENICILLIN-G >=64 R VANCOMYCIN <=0.5 S EXAM GENERAL: Afebrile, VSS, NAD, HEENT: Unremarkable, no thrush NECK: Supple, trachea midline CHEST: Equal chest rise bilaterally, without dyspnea on observation HEART: Pulse RRR ABDOMEN: Soft, NT EXTREMITIES: Warm ID ASSESSMENT 82 yo F admit with: 1. Recurrent urinary tract infection with culture growing Enterococcus * 09/06/18 URINE CX: URINE CULTURE Final Organism 1 ENTEROCOCCUS SPECIES COLONY COUNT 20,000 - 30,000 CFU/ml Organism 2 RO ALBICANS COLONY COUNT <10,000 CFU/ml 2. History of hepatitis C cirrhosis with portal hypertension and transaminitis 3. Pancytopenia. ( - )MRSA Nares INVASIVES: PIV ABX ALLERGY: KNDA TOTAL ABX DAY #2 CURRENT ABX=>* Zyvox #2 + Diflucan #1 S/P Cefepime x1 ID RECOMMENDATIONS 1. Continue current ABX for recurrent complicated UTI/Pyelonephritis 2. 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 Consultation Date/Type/Reason Admit Date/Time Sep 06, 2018 at 15:57 Initial Consult Date Date/Time of Note DATE: 09/08/18 TIME: 13:59 Exam/Review of Systems Exam Vitals Vital Signs Date Temp Pulse Resp B/P (MAP) Pulse Ox O2 O2 Flow FiO2 Time Delivery Rate 09/08/18 97.7 76 17 138/70 94 Room Air 08:01 (92) Intake and Output 09/07/18 09/07/18 09/08/18 1515:00 23:00 07:00 IntakeIntake Total 1000 ml 500 ml OutputOutput Total 1200 ml 1200 ml 1300 ml BalanceBalance -200 ml -700 ml -1300 ml Results Result Diagram: 09/07/18 0458 09/07/18 0458 Medications Medication Current Medications Dextrose/Sodium Chloride 1,000 ml @ 50 mls/hr Q20H IV Last administered on 09/08/18 13:08; Admin Dose 50 MLS/HR; Start 09/06/18 at 17:00 Morphine Sulfate (morphine) 2 mg Q4H PRN IV SEVERE PAIN LEVEL 7-10 Last administered on 09/07/18at 20:53; Admin Dose 2 MG; Start 09/06/18 at 17:00 Pantoprazole (Protonix Tab) 40 mg DAILY@06 PO ; Start 09/07/18 at 06:00 Acetaminophen (Tylenol Tab) 650 mg Q6H PRN PO MILD PAIN(1-3)OR ELEVATED TEMP; Start 09/06/18 at 17:00 Ondansetron HCl (Zofran Inj) 4 mg Q6H PRN IV NAUSEA AND/OR VOMITING Last admin istered on 09/06/18at 21:57; Admin Dose 4 MG; Start 09/06/18 at 17:00 Linezolid (Zyvox) 600 mg BID PO Last administered on 09/07/18at 20:38; Admin Dose 600 MG; Start 09/07/18 at 21:00 CONCHITA GUTIERREZ NP Sep 08, 2018 14:04
[2018-09-08] MEDS ORDERED: FLUCONAZOLE 200 MG (PMX) 100 ML IVPB ONE (15:00)
[2018-09-08 15:01] VITALS: BP 136/71; PULSE 79; RESP 17
[2018-09-08 19:54] VITALS: BP 126/67; PULSE 77; RESP 20
--- NOTE | 2018-09-08 20:34 | CONS ---
Assessment/Plan Assessment/Plan Hospital Course (Demo Recall) 83-year-old female was admitted to the hospital because of abdominal pain. Patient is known to have a history of hepatitis C with cirrhosis and ascites, history of urinary retention and chronic indwelling Canas catheter which is changed in the emergency room on different occasions. The patient presented to the emergency room 1 week earlier on September 01, 2018 because of abdominal pain and the urine culture at that time showed 100,000 E. coli ESBL. The patient was initially treated with Keflex and then that was changed to Bactrim. The patient did not get better and she presented on 06 September and was admitted to the hospital. A repeat urine culture however this time did show enterococcus and Eve albicans. Abdominal ultrasound did show mild right hydronephrosis but the CT scan did not show any hydronephrosis. The CT scan was reported as: Kidneys/Ureters: Hypoattenuating lesions in the bilateral kidneys, some which represent cysts, others of which are too small to further characterize though may represent additional cysts. Bladder: Canas catheter in a partially collapsed bladder with multiple bladder diverticula. Mild layering stones/calcification is seen in the bladder diverticula. A nonspecific 4 mm linear radiopacity in the region of the right UVJ, not seen on the prior exam, nonspecific though may reflect layering stone in a fold of collapsed bladder. No upstream hydroureternephrosis. The calcification that she has on the CT scan measuring 4 mm could represent a distal right ureteral stone and that is small enough that she should be able to pass it. The E. coli ESBL urinary tract infection that was diagnosed 7 days earlier was sensitive to the Bactrim which she received. And her last urine culture now showing enterococcus and Eve albicans and she is being treated that for both of these. The mild right hydronephrosis could be related to the infection as well as possibility of distal right ureteral stone that could be causing her the pain as well as some mild right hydronephrosis. Recommendation is to hydrate her well and strain her urine for stones and continue the antibiotics. Consultation Date/Type/Reason Admit Date/Time Sep 06, 2018 at 15:57 Date of Consultation: Sep 08, 2018 Type of Consult Urology Reason for Consultation Right hydronephrosis and urinary tract infection Requesting Provider: ROSITA SAUCEDO MD Date/Time of Note DATE: 09/08/18 TIME: 20:22 Hx of Present Illness 83-year-old female was admitted to the hospital because of abdominal pain. Patient is known to have a history of hepatitis C with cirrhosis and ascites, history of urinary retention and chronic indwelling Canas catheter which is changed in the emergency room on different occasions. The patient presented to the emergency room 1 week earlier on September 01, 2018 because of abdominal pain and the urine culture at that time showed 100,000 E. coli ESBL. The patient was initially treated with Keflex and then that was changed to Bactrim. The patient did not get better and she presented on 06 September and was admitted to the hospital. A repeat urine culture however this time did show enterococcus and Eve albicans. Abdominal ultrasound did show mild right hydronephrosis but the CT scan did not show any hydronephrosis. The CT scan was reported as: Kidneys/Ureters: Hypoattenuating lesions in the bilateral kidneys, some which represent cysts, others of which are too small to further characterize though may represent additional cysts. Bladder: Canas catheter in a partially collapsed bladder with multiple bladder diverticula. Mild layering stones/calcification is seen in the bladder diverticula. A nonspecific 4 mm linear radiopacity in the region of the right UVJ, not seen on the prior exam, nonspecific though may reflect layering stone in a fold of collapsed bladder. No upstream hydroureternephrosis. Constitutional: no complaints Eyes: no complaints Respiratory: no complaints Cardiovascular: no complaints; No chest pain Gastrointestinal: pain (Mid abdomen) Genitourinary: other (Indwelling Canas catheter) Musculoskeletal: no complaints Skin: no complaints Past Medical History Medical History: urinary tract infection Home Meds Active Scripts Ibuprofen* (Motrin*) 400 Mg Tab, 400 MG PO Q6H PRN for PAIN AND OR ELEVATED TEMP, #30 TAB Prov:DARBY MENDOZA MD 09/03/18 Sulfamethoxazole/Trimethoprim* (Bactrim Ds* Tablet) 1 Each Tablet, 1 TAB PO BID, #14 TAB Prov:DARBY MENDOZA MD 09/03/18 Discontinued Reported Medications Gabapentin* (Gabapentin*) 300 Mg Capsule, 300 MG PO TID, #90 CAP 12/02/17 Omeprazole* (Omeprazole*) 40 Mg Capsule.dr, 40 MG PO DAILY, #30 CAP 12/02/17 Spironolactone* (Aldactone*) 50 Mg Tablet, 50 MG PO DAILY, #30 TAB 12/02/17 Discontinued Scripts Phenazopyridine Hcl* (Pyridium*) 100 Mg Tab, 100 MG PO BID PRN for URINARY PAIN, #6 TAB Prov:BASIL JORDAN MD 09/01/18 Cephalexin* (Keflex*) 500 Mg Capsule, 500 MG PO TID for 7 Days, CAP Prov:BASIL JORDAN MD 09/01/18 Medications Current Medications Dextrose/Sodium Chloride 1,000 ml @ 50 mls/hr Q20H IV Last administered on 09/08/18at 13:08; Admin Dose 50 MLS/HR; Start 09/06/18 at 17:00 Morphine Sulfate (morphine) 2 mg Q4H PRN IV SEVERE PAIN LEVEL 7-10 Last administered on 09/07/18at 20:53; Admin Dose 2 MG; Start 09/06/18 at 17:00 Pantoprazole (Protonix Tab) 40 mg DAILY@06 PO ; Start 09/07/18 at 06:00 Acetaminophen (Tylenol Tab) 650 mg Q6H PRN PO MILD PAIN(1-3)OR ELEVATED TEMP Last administered on 09/08/18at 16:32; Admin Dose 650 MG; Start 09/06/18 at 17:00 Ondansetron HCl (Zofran Inj) 4 mg Q6H PRN IV NAUSEA AND/OR VOMITING Last administered on 09/06/18at 21:57; Admin Dose 4 MG; Start 09/06/18 at 17:00 Linezolid (Zyvox) 600 mg BID PO Last administered on 09/07/18at 20:38; Admin Dose 600 MG; Start 09/07/18 at 21:00 Fluconazole (Diflucan) 100 mg DAILY PO ; Start 09/09/18 at 09:00; Stop 09/12/18 at 08:59 Trazodone HCl (Desyrel) 25 mg HS PO ; Start 09/08/18 at 21:00 Allergies: Coded Allergies: No Known Allergy (Unverified , 09/06/18) Past Surgical History Past Surgical Hx: no surgical history Social History Alcohol Use: none Smoking Status: Never smoker Drug Use: none Exam/Review of Systems Exam Vitals Vital Signs Date Temp Pulse Resp B/P (MAP) Pulse Ox O2 O2 Flow FiO2 Time Delivery Rate 09/08/18 98.7 77 20 126/67 95 19:54 (86) 09/08/18 Room Air 15:01 Intake and Output 09/07/18 09/07/18 09/08/18 1414:59 22:59 06:59 IntakeIntake Total 1000 ml 500 ml OutputOutput Total 1200 ml 1200 ml 1300 ml BalanceBalance -200 ml -700 ml -1300 ml Constitutional: alert (Does not speak [place]ian) Head: normocephalic Eyes: nl conjunctiva Neck: supple Respiratory: No wheezing Cardiovascular: No jugular venous distention (JVD) Gastrointestinal: soft, non-tender Genitourinary - Female: other (Pelvic exam showed no mass and no discharge) Musculoskeletal: nl extremities to inspection Extremities: No calf tenderness Neurological: nl mental status Results Result Diagram: 09/07/1845709/07/[address] scan of the abdomen and pelvis was reported as far as for the kidney and the bladder: Kidneys/Ureters: Hypoattenuating lesions in the bilateral kidneys, some which represent cysts, others of which are too small to further characterize though may represent additional cysts. Bladder: Canas catheter in a partially collapsed bladder with multiple bladder diverticula. Mild layering stones/calcification is seen in the bladder diverticula. A nonspecific 4 mm linear radiopacity in the region of the right UVJ, not seen on the prior exam, nonspecific though may reflect layering stone in a fold of collapsed bladder. No upstream hydroureternephrosis. Medications Medication Current Medications Dextrose/Sodium Chloride 1,000 ml @ 50 mls/hr Q20H IV Last administered on 09/08/18at 13:08; Admin Dose 50 MLS/HR; Start 09/06/18 at 17:00 Morphine Sulfate (morphine) 2 mg Q4H PRN IV SEVERE PAIN LEVEL 7-10 Last administered on 09/07/18at 20:53; Admin Dose 2 MG; Start 09/06/18 at 17:00 Pantoprazole (Protonix Tab) 40 mg DAILY@06 PO ; Start 09/07/18 at 06:00 Acetaminophen (Tylenol Tab) 650 mg Q6H PRN PO MILD PAIN(1-3)OR ELEVATED TEMP Last administered on 09/08/18at 16:32; Admin Dose 650 MG; Start 09/06/18 at 17:00 Ondansetron HCl (Zofran Inj) 4 mg Q6H PRN IV NAUSEA AND/OR VOMITING Last administered on 09/06/18at 21:57; Admin Dose 4 MG; Start 09/06/18 at 17:00 Linezolid (Zyvox) 600 mg BID PO Last administered on 09/07/18at 20:38; Admin Dose 600 MG; Start 09/07/18 at 21:00 Fluconazole (Diflucan) 100 mg DAILY PO ; Start 09/09/18 at 09:00; Stop 09/12/18 at 08:59 Trazodone HCl (Desyrel) 25 mg HS PO ; Start 09/08/18 at 21:00 CLEMENT KRAUS MD Sep 08, 2018 20:32
[2018-09-08] MEDS: traZODone 50 MG TAB PO SCH (21:04)
[2018-09-09 02:05] VITALS: BP 114/60; PULSE 79; RESP 18
[2018-09-09] MEDS: DEXTROSE 5%-0.45% NACL 1,000 ML IV SCH ×2 (05:00→11:48)
[2018-09-09] MEDS: PANTOPRAZOLE (EC) 40 MG TAB PO SCH (05:21)
[2018-09-09 07:52] VITALS: BP 130/64; PULSE 72; RESP 17
[2018-09-09] MEDS: FLUCONAZOLE 100 MG TAB PO SCH (09:00)
[2018-09-09] MEDS: ZYVOX 600 MG TAB PO SCH ×2 (09:00→21:46)
[2018-09-09] MEDS ORDERED: IOHEXOL 14.3 MG(I)/ML (ADULT) BTL PO ONE (09:30)
[2018-09-09] MEDS: morphine 2 MG INJ IV PRN ×2 (09:45→14:58)
--- NOTE | 2018-09-09 12:19 | CONS ---
Assessment/Plan Assessment/Plan Hospital Course (Demo Recall) #Elevated AFP #Hep C cirrhosis #Pyelonephritis #Leukopenia - 2/2 Cirrhosis #CHF #HTN -Given the elevated AFP in the setting of cirrhosis, will check a triple phase CT per liver protocol to definitively rule out HCC -patient's blood counts are low 2/2 to her Hep C cirrhosis but I do not think she need blood transfusion or growth factor at this time -continue management of CHF and HTN per PMD Thank you for the opportunity to participate in this patients care A total of 40 minutes of face to face time was spent speaking with the patient, of which greater than 50% was spent in counseling and coordination of care and the detailed question and answer session. Consultation Date/Type/Reason Admit Date/Time Sep 06, 2018 at 15:57 Date of Consultation: Sep 09, 2018 Type of Consult oncology Reason for Consultation elevated AFP Requesting Provider: ROSITA SAUCEDO MD Date/Time of Note DATE: 09/09/18 TIME: 12:17 Hx of Present Illness MS Ibarra is a pleasant 83 yo female with history of HTN, Hep C cirrhosis and chronic indwelling lomeli who initially presented to [facility] on 09/06/18 with flank pain. Ultrasound demonstrated mild right hydronephrosis. Pt was initially placed on Keflex and then switched to Bactrim and is now on Linezolid. part of her inpatient workup, pt had an abdominal ultrasound which demonstrated a simple cycle in the left lobe of the liver. She was also noted to have an elevated AFP 140. We were thus consulted for further workup. Constitutional: poor po Eyes: no complaints ENT: no complaints Respiratory: no complaints Cardiovascular: no complaints Gastrointestinal: no complaints, decreased appetite Genitourinary: no complaints Musculoskeletal: bone/joint pain Skin: no complaints Past Medical History CHF HTN GERD Hep C cirrhosis chronic indwelling lomeli Medical History: urinary tract infection Home Meds Active Scripts Ibuprofen* (Motrin*) 400 Mg Tab, 400 MG PO Q6H PRN for PAIN AND OR ELEVATED TEMP, #30 TAB Prov:DARBY MENDOZA MD 09/03/18 Sulfamethoxazole/Trimethoprim* (Bactrim Ds* Tablet) 1 Each Tablet, 1 TAB PO BID, #14 TAB Prov:DARBY MENDOZA MD 09/03/18 Discontinued Reported Medications Gabapentin* (Gabapentin*) 300 Mg Capsule, 300 MG PO TID, #90 CAP 12/02/17 Omeprazole* (Omeprazole*) 40 Mg Capsule.dr, 40 MG PO DAILY, #30 CAP 12/02/17 Spironolactone* (Aldactone*) 50 Mg Tablet, 50 MG PO DAILY, #30 TAB 12/02/17 Discontinued Scripts Phenazopyridine Hcl* (Pyridium*) 100 Mg Tab, 100 MG PO BID PRN for URINARY PAIN, #6 TAB Prov:BASIL JORDAN MD 09/01/18 Cephalexin* (Keflex*) 500 Mg Capsule, 500 MG PO TID for 7 Days, CAP Prov:BASIL JORDAN MD 09/01/18 Medications Current Medications Dextrose/Sodium Chloride 1,000 ml @ 50 mls/hr Q20H IV Last administered on 09/09/18at 11:48; Admin Dose 50 MLS/HR; Start 09/06/18 at 17:00 Morphine Sulfate (morphine) 2 mg Q4H PRN IV SEVERE PAIN LEVEL 7-10 Last administered on 09/09/18at 09:45; Admin Dose 2 MG; Start 09/06/18 at 17:00 Pantoprazole (Protonix Tab) 40 mg DAILY@06 PO Last administered on 09/09/18at 05:21; Admin Dose 40 MG; Start 09/07/18 at 06:00 Acetaminophen (Tylenol Tab) 650 mg Q6H PRN PO MILD PAIN(1-3)OR ELEVATED TEMP Last administered on 09/08/18at 16:32; Admin Dose 650 MG; Start 09/06/18 at 17:00 Ondansetron HCl (Zofran Inj) 4 mg Q6H PRN IV NAUSEA AND/OR VOMITING Last adm inistered on 09/06/18at 21:57; Admin Dose 4 MG; Start 09/06/18 at 17:00 Linezolid (Zyvox) 600 mg BID PO Last administered on 09/08/18at 21:05; Admin Dose 600 MG; Start 09/07/18 at 21:00 Fluconazole (Diflucan) 100 mg DAILY PO ; Start 09/09/18 at 09:00; Stop 09/12/18 at 08:59 Trazodone HCl (Desyrel) 25 mg HS PO Last administered on 09/08/18at 21:04; Admin Dose 25 MG; Start 09/08/18 at 21:00 Allergies: Coded Allergies: No Known Allergy (Unverified , 09/06/18) Past Surgical History Past Surgical Hx: no surgical history Family History Significant Family History: no pertinent family hx Social History Alcohol Use: none Smoking Status: Never smoker Drug Use: none Exam/Review of Systems Exam Vitals Vital Signs Date Temp Pulse Resp B/P (MAP) Pulse Ox O2 O2 Flow FiO2 Time Delivery Rate 09/09/18 98.0 72 17 130/64 97 Room Air 07:52 (86) Intake and Output 09/08/18 09/08/18 09/09/18 1414:59 22:59 06:59 IntakeIntake Total 850 ml 1000 ml 630 ml OutputOutput Total 1350 ml 3400 ml BalanceBalance 850 ml -350 ml -2770 ml Constitutional: alert, oriented, frail Psych: anxiety, depression Head: normocephalic Eyes: nl conjunctiva ENMT: nl external ears & nose Neck: supple Respiratory: clear to auscultation Cardiovascular: regular rate and rhythm Gastrointestinal: soft Musculoskeletal: nl extremities to inspection Results Result Diagram: 09/07/18 0458 09/07/18 0458 Results 24hrs Laboratory Tests Test 09/09/18 06:21 Lactate Dehydrogenase 572 Medications Medication Current Medications Dextrose/Sodium Chloride 1,000 ml @ 50 mls/hr Q20H IV Last administered on 09/09/18at 11:48; Admin Dose 50 MLS/HR; Start 09/06/18 at 17:00 Morphine Sulfate (morphine) 2 mg Q4H PRN IV SEVERE PAIN LEVEL 7-10 Last administered on 09/09/18at 09:45; Admin Dose 2 MG; Start 09/06/18 at 17:00 Pantoprazole (Protonix Tab) 40 mg DAILY@06 PO Last administered on 09/09/18 05:21; Admin Dose 40 MG; Start 09/07/18 at 06:00 Acetaminophen (Tylenol Tab) 650 mg Q6H PRN PO MILD PAIN(1-3)OR ELEVATED TEMP Last administered on 09/08/18at 16:32; Admin Dose 650 MG; Start 09/06/18 at 17:00 Ondansetron HCl (Zofran Inj) 4 mg Q6H PRN IV NAUSEA AND/OR VOMITING Last administered on 09/06/18at 21:57; Admin Dose 4 MG; Start 09/06/18 at 17:00 Linezolid (Zyvox) 600 mg BID PO Last administered on 09/08/18at 21:05; Admin Dose 600 MG; Start 09/07/18 at 21:00 Fluconazole (Diflucan) 100 mg DAILY PO ; Start 09/09/18 at 09:00; Stop 09/12/18 at 08:59 Trazodone HCl (Desyrel) 25 mg HS PO Last administered on 09/08/18at 21:04; Admin Dose 25 MG; Start 09/08/18 at 21:00 BUZZ MOLINA M.D. Sep 09, 2018 12:19
--- NOTE | 2018-09-09 13:45 | CONS ---
Assessment/Plan Assessment/Plan Hospital Course (Demo Recall) No acute changes patient is sleeping looks comfortable she is afebrile. Urine culture on admission grew enterococcus species and Eve albicans. Antimicrobials fluconazole, Zyvox indwelling: Canas Physical examination: Well-developed elderly woman in no distress. Head atraumatic normocephalic sclera nonicteric vehicle mucosa dry neck is supple chest rise symmetrical breath sounds diminished to bases. Heart: S1-S2. Abdomen soft bowel sounds present. Extremities without cyanosis. Assessment: 1. Recurrent UTI 2. Hepatic lesion per CT of the abdomen, rule out hepatocellular carcinoma 3. 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 Plan: Patient is stable, on appropriate antibiotic regimen, follow urology and hematology recommendations Consultation Date/Type/Reason Admit Date/Time Sep 06, 2018 at 15:57 Initial Consult Date 09/09/18 Type of Consult id Requesting Provider: ROSITA SAUCEDO MD Date/Time of Note DATE: 09/09/18 TIME: 13:44 Exam/Review of Systems Exam Vitals Vital Signs Date Temp Pulse Resp B/P (MAP) Pulse Ox O2 O2 Flow FiO2 Time Delivery Rate 09/09/18 98.0 72 17 130/64 97 Room Air 07:52 (86) Intake and Output 09/08/18 09/08/18 09/09/18 1515:00 23:00 07:00 IntakeIntake Total 1350 ml 500 ml 630 ml OutputOutput Total 1350 ml 3400 ml BalanceBalance 0 ml 500 ml -2770 ml Results Result Diagram: 09/07/18 0458 09/07/18 0458 Results 24hrs Laboratory Tests Test 09/09/18 06:21 Lactate Dehydrogenase 572 Medications Medication Current Medications Dextrose/Sodium Chloride 1,000 ml @ 50 mls/hr Q20H IV Last administered on 09/09/18at 11:48; Admin Dose 50 MLS/HR; Start 09/06/18 at 17:00 Morphine Sulfate (morphine) 2 mg Q4H PRN IV SEVERE PAIN LEVEL 7-10 Last administered on 09/09/18at 09:45; Admin Dose 2 MG; Start 09/06/18 at 17:00 Pantoprazole (Protonix Tab) 40 mg DAILY@06 PO Last administered on 09/09/18at 05:21; Admin Dose 40 MG; Start 09/07/18 at 06:00 Acetaminophen (Tylenol Tab) 650 mg Q6H PRN PO MILD PAIN(1-3)OR ELEVATED TEMP Last administered on 09/08/18 16:32; Admin Dose 650 MG; Start 09/06/18 at 17:00 Ondansetron HCl (Zofran Inj) 4 mg Q6H PRN IV NAUSEA AND/OR VOMITING Last administered on 09/06/18 21:57; Admin Dose 4 MG; Start 09/06/18 at 17:00 Linezolid (Zyvox) 600 mg BID PO Last administered on 09/08/18at 21:05; Admin Dose 600 MG; Start 09/07/18 at 21:00 Fluconazole (Diflucan) 100 mg DAILY PO ; Start 09/09/18 at 09:00; Stop 09/12/18 at 08:59 Trazodone HCl (Desyrel) 25 mg HS PO Last administered on 09/08/18at 21:04; Admin Dose 25 MG; Start 09/08/18 at 21:00 ANASTACIA POWER NP Sep 09, 2018 13:45
[2018-09-09 15:54] VITALS: BP 131/65; PULSE 76; RESP 17
[2018-09-09] MEDS ORDERED: morphine 4 MG/ML VIAL IV PRN (18:00)
[2018-09-09] MEDS ORDERED: HYDROmorphONE 1 MG/ML SYG IV ONE (18:00)
--- NOTE | 2018-09-09 19:41 | PN ---
Date/Time of Note Date/Time of Note DATE: 09/09/18 TIME: 19:41 Assessment/Plan VTE Prophylaxis Risk score (from Nsg)>0 risk: 5 SCD applied (from Ns): Yes Lines/Catheters IV Catheter Type (from Nrsg): Peripheral IV Urinary Cath still in place: Yes Assessment/Plan Assessment/Plan -Pyelonephritis - ID consult- - pain control -Leukopenia - monitor CBC - Elevated AFP - hEM /ONC follows -Hydronephrosis - urology consult- dr colin notified - pain control CHF HTN GERD- PPI SCD Dw Dr Whittington Result Diagram: 09/07/188 09/07/18 0458 Results 24hrs Laboratory Tests Test 09/09/18 06:21 Lactate Dehydrogenase 572 Subjective 24 Hr Interval Summary Free Text/Dictation CT with contrast per Onc pending Exam/Review of Systems Exam Vitals Vital Signs Date Temp Pulse Resp B/P (MAP) Pulse Ox O2 O2 Flow FiO2 Time Delivery Rate 09/09/18 98.7 76 17 131/65 98 Room Air 15:54 (87) Intake and Output 09/08/18 09/08/18 09/09/18 1515:00 23:00 07:00 IntakeIntake Total 1350 ml 500 ml 630 ml OutputOutput Total 1350 ml 3400 ml BalanceBalance 0 ml 500 ml -2770 ml Results Results 24hrs Laboratory Tests Test 09/09/18 06:21 Lactate Dehydrogenase 572 Medications Medication Current Medications Dextrose/Sodium Chloride 1,000 ml @ 50 mls/hr Q20H IV Last administered on 09/09/18at 11:48; Admin Dose 50 MLS/HR; Start 09/06/18 at 17:00 Pantoprazole (Protonix Tab) 40 mg DAILY@06 PO Last administered on 09/09/18at 05:21; Admin Dose 40 MG; Start 09/07/18 at 06:00 Acetaminophen (Tylenol Tab) 650 mg Q6H PRN PO MILD PAIN(1-3)OR ELEVATED TEMP Last administered on 09/08/18at 16:32; Admin Dose 650 MG; Start 09/06/18 at 17:00 Ondansetron HCl (Zofran Inj) 4 mg Q6H PRN IV NAUSEA AND/OR VOMITING Last administered on 09/06/18at 21:57; Admin Dose 4 MG; Start 09/06/18 at 17:00 Linezolid (Zyvox) 600 mg BID PO Last administered on 09/08/18at 21:05; Admin Dose 600 MG; Start 09/07/18 at 21:00 Fluconazole (Diflucan) 100 mg DAILY PO ; Start 09/09/18 at 09:00; Stop 09/12/18 at 08:59 Trazodone HCl (Desyrel) 25 mg HS PO Last administered on 09/08/18at 21:04; Admin Dose 25 MG; Start 09/08/18 at 21:00 Morphine Sulfate (morphine) 4 mg Q3H PRN IV SEVERE PAIN LEVEL 7-10; Start 09/09/18 at 18:00 ABRAHAM DOYLE Sep 09, 2018 19:41
[2018-09-09 20:16] VITALS: BP 142/75; PULSE 75; RESP 18
[2018-09-09] MEDS: traZODone 50 MG TAB PO SCH (21:48)
[2018-09-10 02:36] VITALS: BP 110/60; PULSE 82; RESP 20
[2018-09-10] MEDS: PANTOPRAZOLE (EC) 40 MG TAB PO SCH (05:38)
--- NOTE | 2018-09-10 06:08 | PN ---
Date/Time of Note Date/Time of Note DATE: 09/10/18 TIME: 06:07 Assessment/Plan VTE Prophylaxis Risk score (from Nsg)>0 risk: 6 SCD applied (from Nsg): Yes Lines/Catheters IV Catheter Type (from Nrsg): Peripheral IV Urinary Cath still in place: Yes Assessment/Plan Result Diagram: 09/07/18 0458 09/07/18 0458 Results 24hrs Laboratory Tests Test 09/09/18 06:21 Lactate Dehydrogenase 572 Exam/Review of Systems Exam Vitals Vital Signs Date Temp Pulse Resp B/P (MAP) Pulse Ox O2 O2 Flow FiO2 Time Delivery Rate 09/10/18 98.1 82 20 110/60 99 Room Air 02:36 (77) Intake and Output 09/09/18 09/09/18 09/10/18 1515:00 23:00 07:00 IntakeIntake Total 750 ml 350 ml 500 ml OutputOutput Total 900 ml 600 ml BalanceBalance -150 ml -250 ml 500 ml Results Results 24hrs Laboratory Tests Test 09/09/18 06:21 Lactate Dehydrogenase 572 Medications Medication Current Medications Dextrose/Sodium Chloride 1,000 ml @ 50 mls/hr Q20H IV Last administered on 09/09/18at 11:48; Admin Dose 50 MLS/HR; Start 09/06/18 at 17:00 Pantoprazole (Protonix Tab) 40 mg DAILY@06 PO Last administered on 09/10/18at 05:38; Admin Dose 40 MG; Start 09/07/18 at 06:00 Acetaminophen (Tylenol Tab) 650 mg Q6H PRN PO MILD PAIN(1-3)OR ELEVATED TEMP Last administered on 09/08/18at 16:32; Admin Dose 650 MG; Start 09/06/18 at 17:00 Ondansetron HCl (Zofran Inj) 4 mg Q6H PRN IV NAUSEA AND/OR VOMITING Last administered on 09/06/18at 21:57; Admin Dose 4 MG; Start 09/06/18 at 17:00 Linezolid (Zyvox) 600 mg BID PO Last administered on 09/09/18at 21:46; Admin Dose 600 MG; Start 09/07/18 at 21:00 Fluconazole (Diflucan) 100 mg DAILY PO ; Start 09/09/18 at 09:00; Stop 09/12/18 at 08:59 Trazodone HCl (Desyrel) 25 mg HS PO Last administered on 09/09/18at 21:48; Admin Dose 25 MG; Start 09/08/18 at 21:00 Morphine Sulfate (morphine) 4 mg Q3H PRN IV SEVERE PAIN LEVEL 7-10; Start 09/09/18 at 18:00 ABRAHAM DOYLE Sep 10, 2018 06:08
[2018-09-10 07:30] VITALS: BP 123/69; PULSE 75; RESP 18
[2018-09-10] MEDS: ZYVOX 600 MG TAB PO SCH ×2 (09:47→23:53)
[2018-09-10] MEDS: FLUCONAZOLE 100 MG TAB PO SCH (09:47)
[2018-09-10] MEDS: morphine 4 MG/ML VIAL IV PRN (09:48)
[2018-09-10] MEDS: DEXTROSE 5%-0.45% NACL 1,000 ML IV SCH (10:42)
--- NOTE | 2018-09-10 12:05 | CONS ---
Assessment/Plan Assessment/Plan Hospital Course (Demo Recall) #Elevated AFP #Hep C cirrhosis #Pyelonephritis #Leukopenia - 2/2 Cirrhosis #CHF #HTN -Triple phase CT did demonstrate a 2.7 cm arterial enhancing observation with corresponding washout and delayed capsular enhancement represents hepatocellular carcinoma, LI-RADS 5. -pt needs referral to hepatobiliary surgeon as an out patient. this can likely be resected -patient's blood counts are low 2/2 to her Hep C cirrhosis but I do not think she need blood transfusion or growth factor at this time -continue management of CHF and HTN per PMD Thank you for the opportunity to participate in this patients care A total of 40 minutes of face to face time was spent speaking with the patient, of which greater than 50% was spent in counseling and coordination of care and the detailed question and answer session. Consultation Date/Type/Reason Admit Date/Time Sep 06, 2018 at 15:57 Initial Consult Date 09/09/18 Type of Consult oncology Reason for Consultation concern for HCC Requesting Provider: ROSITA SAUCEDO MD Date/Time of Note DATE: 09/10/18 TIME: 12:03 24 HR Interval Summary Free Text/Dictation no acute overnight events Exam/Review of Systems Exam Vitals Vital Signs Date Temp Pulse Resp B/P (MAP) Pulse Ox O2 O2 Flow FiO2 Time Delivery Rate 09/10/18 97.9 75 18 123/69 96 Room Air 07:30 (87) Intake and Output 09/09/18 09/09/18 09/10/18 1515:00 23:00 07:00 IntakeIntake Total 750 ml 350 ml 1020 ml OutputOutput Total 900 ml 600 ml 550 ml BalanceBalance -150 ml -250 ml 470 ml Constitutional: alert, oriented, frail Psych: anxiety, depression Head: normocephalic Eyes: nl conjunctiva ENMT: nl external ears & nose Neck: supple Respiratory: clear to auscultation Cardiovascular: regular rate and rhythm Gastrointestinal: soft Musculoskeletal: nl extremities to inspection Results Result Diagram: 09/10/18 0607 09/10/18 0607 Results 24hrs Laboratory Tests Test 09/10/18 06:07 White Blood Count 3.3 L Red Blood Count 3.84 L Hemoglobin 9.7 L Hematocrit 32.9 L Mean Corpuscular Volume 85.7 Mean Corpuscular Hemoglobin 25.3 L Mean Corpuscular Hemoglobin Concent 29.5 L Red Cell Distribution Width 17.7 H Platelet Count 84 L Mean Platelet Volume 8.7 Immature Granulocytes % 0.300 Neutrophils % 51.8 Lymphocytes % 34.1 Monocytes % 10.2 Eosinophils % 2.7 Basophils % 0.9 Nucleated Red Blood Cells % 0.0 Immature Granulocytes # 0.010 Neutrophils # 1.7 Lymphocytes # 1.1 Monocytes # 0.3 Eosinophils # 0.1 Basophils # 0.0 Nucleated Red Blood Cells # 0.0 Sodium Level 138 Potassium Level 4.8 Chloride Level 107 Carbon Dioxide Level 26 Anion Gap 5 Blood Urea Nitrogen 7 Creatinine 0.73 Est Glomerular Filtrat Rate mL/min Glucose Level 109 Uric Acid 4.7 Calcium Level 8.8 Medications Medication Current Medications Dextrose/Sodium Chloride 1,000 ml @ 50 mls/hr Q20H IV Last administered on 09/10/18 10:42; Admin Dose 50 MLS/HR; Start 09/06/18 at 17:00 Pantoprazole (Protonix Tab) 40 mg DAILY@06 PO Last administered on 09/10/18 05:38; Admin Dose 40 MG; Start 09/07/18 at 06:00 Acetaminophen (Tylenol Tab) 650 mg Q6H PRN PO MILD PAIN(1-3)OR ELEVATED TEMP Last administered on 09/08/18 16:32; Admin Dose 650 MG; Start 09/06/18 at 17:00 Ondansetron HCl (Zofran Inj) 4 mg Q6H PRN IV NAUSEA AND/OR VOMITING Last administered on 09/06/18 21:57; Admin Dose 4 MG; Start 09/06/18 at 17:00 Linezolid (Zyvox) 600 mg BID PO Last administered on 09/10/18 09:47; Admin Dose 600 MG; Start 09/07/18 at 21:00 Fluconazole (Diflucan) 100 mg DAILY PO Last administered on 09/10/18 09:47; Admin Dose 100 MG; Start 09/09/18 at 09:00; Stop 09/12/18 at 08:59 Trazodone HCl (Desyrel) 25 mg HS PO Last administered on 09/09/18 21:48; Admin Dose 25 MG; Start 09/08/18 at 21:00 Morphine Sulfate (morphine) 4 mg Q3H PRN IV SEVERE PAIN LEVEL 7-10 Last administered on 09/10/18at 09:48; Admin Dose 4 MG; Start 09/09/18 at 18:00 BUZZ MOLINA M.D. Sep 10, 2018 12:05
--- NOTE | 2018-09-10 12:56 | CONS ---
Assessment/Plan Assessment/Plan Hospital Course (Demo Recall) All noted. No acute changes Urine culture on admission grew enterococcus species and Eve albicans. Antimicrobials fluconazole, Zyvox indwelling: Canas Physical examination: Well-developed wasted elderly woman in no distress. Head atraumatic normocephalic sclera nonicteric vehicle mucosa dry neck is supple chest rise symmetrical breath sounds diminished to bases. Heart: S1-S2. A bdomen soft bowel sounds present. Extremities without cyanosis. Assessment: 1. Recurrent UTI 2. Hepatocellular carcinoma per CT of the abdomen 3. 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 Plan: Continue on current antibiotic regimen, hematology recommendations noted, pt to f/u with hepatobiliary specialist outpatient Consultation Date/Type/Reason Admit Date/Time Sep 06, 2018 at 15:57 Initial Consult Date 09/09/18 Type of Consult id Requesting Provider: ROSITA SAUCEDO MD Date/Time of Note DATE: 09/10/18 TIME: 12:54 Exam/Review of Systems Exam Vitals Vital Signs Date Temp Pulse Resp B/P (MAP) Pulse Ox O2 O2 Flow FiO2 Time Delivery Rate 09/10/18 97.9 75 18 123/69 96 Room Air 07:30 (87) Intake and Output 09/09/18 09/09/18 09/10/18 1515:00 23:00 07:00 IntakeIntake Total 750 ml 350 ml 1020 ml OutputOutput Total 900 ml 600 ml 550 ml BalanceBalance -150 ml -250 ml 470 ml Results Result Diagram: 09/10/18 0607 09/10/18 0607 Results 24hrs Laboratory Tests Test 09/10/18 06:07 White Blood Count 3.3 L Red Blood Count 3.84 L Hemoglobin 9.7 L Hematocrit 32.9 L Mean Corpuscular Volume 85.7 Mean Corpuscular Hemoglobin 25.3 L Mean Corpuscular Hemoglobin Concent 29.5 L Red Cell Distribution Width 17.7 H Platelet Count 84 L Mean Platelet Volume 8.7 Immature Granulocytes % 0.300 Neutrophils % 51.8 Lymphocytes % 34.1 Monocytes % 10.2 Eosinophils % 2.7 Basophils % 0.9 Nucleated Red Blood Cells % 0.0 Immature Granulocytes # 0.010 Neutrophils # 1.7 Lymphocytes # 1.1 Monocytes # 0.3 Eosinophils # 0.1 Basophils # 0.0 Nucleated Red Blood Cells # 0.0 Sodium Level 138 Potassium Level 4.8 Chloride Level 107 Carbon Dioxide Level 26 Anion Gap 5 Blood Urea Nitrogen 7 Creatinine 0.73 Est Glomerular Filtrat Rate mL/min Glucose Level 109 Uric Acid 4.7 Calcium Level 8.8 Medications Medication Current Medications Dextrose/Sodium Chloride 1,000 ml @ 50 mls/hr Q20H IV Last administered on 09/10/18 10:42; Admin Dose 50 MLS/HR; Start 09/06/18 at 17:00 Pantoprazole (Protonix Tab) 40 mg DAILY@06 PO Last administered on 09/10/18 05:38; Admin Dose 40 MG; Start 09/07/18 at 06:00 Acetaminophen (Tylenol Tab) 650 mg Q6H PRN PO MILD PAIN(1-3)OR ELEVATED TEMP [place] st administered on 09/08/18 16:32; Admin Dose 650 MG; Start 09/06/18 at 17:00 Ondansetron HCl (Zofran Inj) 4 mg Q6H PRN IV NAUSEA AND/OR VOMITING Last administered on 09/06/18 21:57; Admin Dose 4 MG; Start 09/06/18 at 17:00 Linezolid (Zyvox) 600 mg BID PO Last administered on 09/10/18 09:47; Admin Dose 600 MG; Start 09/07/18 at 21:00 Fluconazole (Diflucan) 100 mg DAILY PO Last administered on 09/10/18 09:47; Admin Dose 100 MG; Start 09/09/18 at 09:00; Stop 09/12/18 at 08:59 Trazodone HCl (Desyrel) 25 mg HS PO Last administered on 09/09/18 21:48; Admin Dose 25 MG; Start 09/08/18 at 21:00 Morphine Sulfate (morphine) 4 mg Q3H PRN IV SEVERE PAIN LEVEL 7-10 Last administered on 09/10/18 09:48; Admin Dose 4 MG; Start 09/09/18 at 18:00 ANASTACIA POWER NP Sep 10, 2018 12:56
[2018-09-10 14:00] VITALS: BP 130/71; PULSE 80; RESP 18
--- NOTE | 2018-09-10 19:44 | PN ---
DATE: 09/10/2018 HISTORY OF PRESENT ILLNESS: The patient has no significant abdominal pain at this time. She had perry vated liver functions, alkaline phosphatase 150, AST 67 and because of that ultrasound of the upper a bdomen was ordered, which showed evidence of cirrhosis and mild gallbladder wall thickening, mild rig ht-sided hydronephrosis. Alpha fetoprotein was ordered, which showed evidence of 140 and the result of which is high, normal is less than 30 I think and normal is up to 7. This patient's value is 140. Because of that CAT scan of the abdomen was ordered. CAT scan of the abdomen showed evidence of hepa tic cirrhosis 2.5 cm arterial enhancing observation with corresponding washout and delayed capsular e nhancement represent hepatocellular carcinoma. Mild central intrahepatic and mild to moderate extrah epatic biliary ductal dilatation with gradual distal tapering was noted. Mild splenomegaly noted. M oderate borderline enlargement of the appendiceal lumen was noted. Diffuse thickening of the urinary bladder was noted. Diffuse osseous demineralization was noted. There is also old mass-like consolidation with multifocal areas of cystic change and a calcification. This is a partially imaged in the right middle lobe. LABORATORY WORKUP: WBCs 3.3, hemoglobin 9.7. Chemistry, particularly LDH is 572. PHYSICAL EXAMINATION: VITAL SIGNS: The patient is alert and not in distress, afebrile, blood pressure 130/71. CARDIOVASCULAR: Normal heart sounds. RESPIRATORY: Normal breath sounds. ABDOMEN: Shows soft abdomen with no palpable masses. CLINICAL IMPRESSION: The patient has a 2.7 cm lesion noted in the liver could be suggestive of hepat ocellular carcinoma, particularly in view of the elevated alpha fetoprotein of 140. There is also du ctal dilatation noted, intrahepatic as well as extrahepatic biliary dilatation. Cholangiocarcinoma s hould be ruled out. Hence, I ordered [id number]. I also ordered MRCP to rule out a biliary ductal abno rmalities. PLAN: It is a good possibility that he may need ERCP to relieve the biliary ductal obstruction. She also needs hepatopancreatic biliary surgeon's consultation. The patient is already seen by oncol ogist. Dictated By: YO ROACH MD NC/NTS Conf#: [id number] DID#: [id number] CC: CLEMENT KRAUS MD; YO ROACH MD; ROSITA SAUCEDO MD;*EndCC*
[2018-09-10 20:00] VITALS: BP 145/67; PULSE 84; RESP 18
[2018-09-10] MEDS: traZODone 50 MG TAB PO SCH (23:53)
[2018-09-11] VITALS (16 sets, daily range): BP systolic 108–155; BP diastolic 61–90; PULSE 69–91; RESP 16–30
[2018-09-11] MEDS: morphine 4 MG/ML VIAL IV PRN (00:10)
--- NOTE | 2018-09-11 05:12 | PN ---
Date/Time of Note Date/Time of Note DATE: 09/11/18 TIME: 05:11 Assessment/Plan VTE Prophylaxis Risk score (from Nsg)>0 risk: 6 SCD applied (from Ns): Yes Lines/Catheters IV Catheter Type (from Nrsg): Peripheral IV Urinary Cath still in place: Yes Assessment/Plan Assessment/Plan -Pyelonephritis - ID consult- - pain control -Leukopenia - monitor CBC - Elevated AFP ; HCC by CT abdomen - hEM /ONC follows - Vascular sx appreciated -Hydronephrosis - urology consult- dr oclin notified - pain control CHF HTN GERD- PPI SCD Dw Dr Whittington Result Diagram: Result Diagram: 09/10/18 0607 09/10/18 1930 Results 24hrs Laboratory Tests Test 09/10/18 06:05 09/10/18 06:07 09/10/18 19:30 CA 19-9 Antigen 47.6 H White Blood Count 3.3 L Red Blood Count 3.84 L Hemoglobin 9.7 L Hematocrit 32.9 L Mean Corpuscular Volume 85.7 Mean Corpuscular Hemoglobin 25.3 L Mean Corpuscular Hemoglobin Concent 29.5 L Red Cell Distribution Width 17.7 H Platelet Count 84 L Mean Platelet Volume 8.7 Immature Granulocytes % 0.300 Neutrophils % 51.8 Lymphocytes % 34.1 Monocytes % 10.2 Eosinophils % 2.7 Basophils % 0.9 Nucleated Red Blood Cells % 0.0 Immature Granulocytes # 0.010 Neutrophils # 1.7 Lymphocytes # 1.1 Monocytes # 0.3 Eosinophils # 0.1 Basophils # 0.0 Nucleated Red Blood Cells # 0.0 Sodium Level 138 133 L Potassium Level 4.8 4.4 Chloride Level 107 102 Carbon Dioxide Level 26 25 Anion Gap 5 6 Blood Urea Nitrogen 7 8 Creatinine 0.73 0.64 Est Glomerular Filtrat Rate mL/min Glucose Level 109 166 Uric Acid 4.7 Calcium Level 8.8 8.5 Total Bilirubin 0.5 Direct Bilirubin 0.00 Indirect Bilirubin 0.5 Aspartate Amino Transf (AST/SGOT) 67 H Alanine Aminotransferase (ALT/SGPT) 32 Alkaline Phosphatase 148 H Total Protein 7.0 Albumin 2.8 L Globulin 4.20 H Albumin/Globulin Ratio 0.66 Exam/Review of Systems Exam Vitals Vital Signs Date Temp Pulse Resp B/P (MAP) Pulse Ox O2 O2 Flow FiO2 Time Delivery Rate 09/11/18 98.1 91 18 119/61 92 Room Air 02:45 (80) Intake and Output 09/10/18 09/10/18 09/11/18 1515:00 23:00 07:00 IntakeIntake Total 400 ml OutputOutput Total 1500 ml BalanceBalance -1100 ml Results Results 24hrs Laboratory Tests Test 09/10/18 06:05 09/10/18 06:07 09/10/18 19:30 CA 19-9 Antigen 47.6 H White Blood Count 3.3 L Red Blood Count 3.84 L Hemoglobin 9.7 L Hematocrit 32.9 L Mean Corpuscular Volume 85.7 Mean Corpuscular Hemoglobin 25.3 L Mean Corpuscular Hemoglobin Concent 29.5 L Red Cell Distribution Width 17.7 H Platelet Count 84 L Mean Platelet Volume 8.7 Immature Granulocytes % 0.300 Neutrophils % 51.8 Lymphocytes % 34.1 Monocytes % 10.2 Eosinophils % 2.7 Basophils % 0.9 Nucleated Red Blood Cells % 0.0 Immature Granulocytes # 0.010 Neutrophils # 1.7 Lymphocytes # 1.1 Monocytes # 0.3 Eosinophils # 0.1 Basophils # 0.0 Nucleated Red Blood Cells # 0.0 Sodium Level 138 133 L Potassium Level 4.8 4.4 Chloride Level 107 102 Carbon Dioxide Level 26 25 Anion Gap 5 6 Blood Urea Nitrogen 7 8 Creatinine 0.73 0.64 Est Glomerular Filtrat Rate mL/min Glucose Level 109 166 Uric Acid 4.7 Calcium Level 8.8 8.5 Total Bilirubin 0.5 Direct Bilirubin 0.00 Indirect Bilirubin 0.5 Aspartate Amino Transf (AST/SGOT) 67 H Alanine Aminotransferase (ALT/SGPT) 32 Alkaline Phosphatase 148 H Total Protein 7.0 Albumin 2.8 L Globulin 4.20 H Albumin/Globulin Ratio 0.66 Medications Medication Current Medications Dextrose/Sodium Chloride 1,000 ml @ 50 mls/hr Q20H IV Last administered on 09/10/18at 10:42; Admin Dose 50 MLS/HR; Start 09/06/18 at 17:00 Pantoprazole (Protonix Tab) 40 mg DAILY@06 PO Last administered on 09/10/18at 05:38; Admin Dose 40 MG; Start 09/07/18 at 06:00 Acetaminophen (Tylenol Tab) 650 mg Q6H PRN PO MILD PAIN(1-3)OR ELEVATED TEMP Last administered on 09/08/18 16:32; Admin Dose 650 MG; Start 09/06/18 at 17:00 Ondansetron HCl (Zofran Inj) 4 mg Q6H PRN IV NAUSEA AND/OR VOMITING Last administered on 09/06/18 21:57; Admin Dose 4 MG; Start 09/06/18 at 17:00 Linezolid (Zyvox) 600 mg BID PO Last administered on 09/10/18 23:53; Admin Dose 600 MG; Start 09/07/18 at 21:00 Fluconazole (Diflucan) 100 mg DAILY PO Last administered on 09/10/18 09:47; Admin Dose 100 MG; Start 09/09/18 at 09:00; Stop 09/12/18 at 08:59 Trazodone HCl (Desyrel) 25 mg HS PO Last administered on 09/10/18 23:53; Admin Dose 25 MG; Start 09/08/18 at 21:00 Morphine Sulfate (morphine) 4 mg Q3H PRN IV SEVERE PAIN LEVEL 7-10 Last administered on 09/11/18 00:10; Admin Dose 4 MG; Start 09/09/18 at 18:00 ABRAHAM DOYLE September 11, 2018 05:12
[2018-09-11] MEDS: PANTOPRAZOLE (EC) 40 MG TAB PO SCH (05:33)
[2018-09-11] MEDS: ZYVOX 600 MG TAB PO SCH ×2 (09:00→22:06)
[2018-09-11] MEDS: FLUCONAZOLE 100 MG TAB PO SCH (09:00)
--- NOTE | 2018-09-11 11:04 | CONS ---
Assessment/Plan Assessment/Plan Hospital Course (Demo Recall) #Elevated AFP #Hep C cirrhosis #Biliary obstruction #Pyelonephritis #Leukopenia - 2/2 Cirrhosis #CHF #HTN -Triple phase CT did demonstrate a 2.7 cm arterial enhancing observation with corresponding washout and delayed capsular enhancement represents hepatocellular carcinoma, LI-RADS 5. -pt needs referral to hepatobiliary surgeon as an out patient. this can likely be resected -patient's blood counts are low 2/2 to her Hep C cirrhosis but I do not think she need blood transfusion or growth factor at this time -agree with ERCP to relieve biliary obstruction -continue management of CHF and HTN per PMD Thank you for the opportunity to participate in this patients care A total of 40 minutes of face to face time was spent speaking with the patient, of which greater than 50% was spent in counseling and coordination of care and the detailed question and answer session. Consultation Date/Type/Reason Admit Date/Time Sep 06, 2018 at 15:57 Initial Consult Date 09/09/18 Type of Consult oncology Reason for Consultation HCC Requesting Provider: ROSITA SAUCEDO MD Date/Time of Note DATE: 09/11/18 TIME: 11:02 24 HR Interval Summary Free Text/Dictation pt to have ERCP today Exam/Review of Systems Exam Vitals Vital Signs Date Temp Pulse Resp B/P (MAP) Pulse Ox O2 O2 Flow FiO2 Time Delivery Rate 09/11/18 98.2 69 18 125/63 93 Room Air 07:50 (83) Intake and Output 09/10/18 09/10/18 09/11/18 1515:00 23:00 07:00 IntakeIntake Total 400 ml OutputOutput Total 1500 ml BalanceBalance -1100 ml Constitutional: alert, oriented, frail Psych: anxiety, depression Head: normocephalic Eyes: nl conjunctiva ENMT: nl external ears & nose Neck: supple Respiratory: clear to auscultation Cardiovascular: regular rate and rhythm Gastrointestinal: soft Musculoskeletal: nl extremities to inspection Extremities: normal pulses Results Result Diagram: 09/11/1852609/11/1827 Results 24hrs Laboratory Tests Test 09/10/18 19:30 09/11/18 05:27 Sodium Level 133 L 136 Potassium Level 4.4 4.3 Chloride Level 102 106 Carbon Dioxide Level 25 25 Anion Gap 6 5 Blood Urea Nitrogen 8 6 L Creatinine 0.64 0.59 Est Glomerular Filtrat Rate mL/min Glucose Level 166 113 # Calcium Level 8.5 8.5 Total Bilirubin 0.5 Direct Bilirubin 0.00 Indirect Bilirubin 0.5 Aspartate Amino Transf (AST/SGOT) 67 H Alanine Aminotransferase (ALT/SGPT) 32 Alkaline Phosphatase 148 H Total Protein 7.0 Albumin 2.8 L Globulin 4.20 H Albumin/Globulin Ratio 0.66 White Blood Count 3.0 L Red Blood Count 3.79 L Hemoglobin 9.4 L Hematocrit 31.8 L Mean Corpuscular Volume 83.9 Mean Corpuscular Hemoglobin 24.8 L Mean Corpuscular Hemoglobin Concent 29.6 L Red Cell Distribution Width 17.3 H Platelet Count 81 L Mean Platelet Volume 9.2 Immature Granulocytes % 0.300 Neutrophils % 48.8 Lymphocytes % 36.6 Monocytes % 10.5 Eosinophils % 3.1 Basophils % 0.7 Nucleated Red Blood Cells % 0.0 Immature Granulocytes # 0.010 Neutrophils # 1.4 L Lymphocytes # 1.1 Monocytes # 0.3 Eosinophils # 0.1 Basophils # 0.0 Nucleated Red Blood Cells # 0.0 Medications Medication Current Medications Dextrose/Sodium Chloride 1,000 ml @ 50 mls/hr Q20H IV Last administered on 09/10/18 10:42; Admin Dose 50 MLS/HR; Start 09/06/18 at 17:00 Pantoprazole (Protonix Tab) 40 mg DAILY@06 PO Last administered on 09/11/18 05:33; Admin Dose 40 MG; Start 09/07/18 at 06:00 Acetaminophen (Tylenol Tab) 650 mg Q6H PRN PO MILD PAIN(1-3)OR ELEVATED TEMP Last administered on 09/08/18 16:32; Admin Dose 650 MG; Start 09/06/18 at 17:00 Ondansetron HCl (Zofran Inj) 4 mg Q6H PRN IV NAUSEA AND/OR VOMITING Last administered on 09/06/18 21:57; Admin Dose 4 MG; Start 09/06/18 at 17:00 Linezolid (Zyvox) 600 mg BID PO Last administered on 09/10/18 23:53; Admin Dose 600 MG; Start 09/07/18 at 21:00 Fluconazole (Diflucan) 100 mg DAILY PO Last administered on 4/30/19at 09:47; Admin Dose 100 MG; Start 09/09/18 at 09:00; Stop 09/12/18 at 08:59 Trazodone HCl (Desyrel) 25 mg HS PO Last administered on 09/10/18at 23:53; Admin Dose 25 MG; Start 09/08/18 at 21:00 Morphine Sulfate (morphine) 4 mg Q3H PRN IV SEVERE PAIN LEVEL 7-10 Last administered on 09/11/18at 00:10; Admin Dose 4 MG; Start 09/09/18 at 18:00 BUZZ MOLINA M.D. September 11, 2018 11:04
[2018-09-11] MEDS: DEXTROSE 5%-0.45% NACL 1,000 ML IV SCH ×2 (11:28→22:56)
--- NOTE | 2018-09-11 12:07 | CONS ---
Assessment/Plan Assessment/Plan Hospital Course (Demo Recall) No acute events, looks comfortable, no fevers Urine culture on admission grew enterococcus species and Eve albicans. Antimicrobials: fluconazole, Zyvox indwelling: Canas Physical examination: Well-developed wasted elderly woman in no distress. Head atraumatic normocephalic sclera nonicteric vehicle mucosa dry neck is supple chest rise symmetrical breath sounds diminished to bases. Heart: S1-S2. Abdomen soft bowel sounds present. Extremities without cyanosis. Assessment: 1. Recurrent UTI 2. Hepatocellular carcinoma==> oncology on case 3. 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 Plan: MRCP noted, continue abx, GI rec-s==> ?ERCP, f/u with hepatobiliary specialist outpatient Consultation Date/Type/Reason Admit Date/Time Sep 06, 2018 at 15:57 Initial Consult Date 09/09/18 Type of Consult id Requesting Provider: ROSITA SAUCEDO MD Date/Time of Note DATE: 09/11/18 TIME: 12:04 Exam/Review of Systems Exam Vitals Vital Signs Date Temp Pulse Resp B/P (MAP) Pulse Ox O2 O2 Flow FiO2 Time Delivery Rate 09/11/18 98.2 69 18 125/63 93 Room Air 07:50 (83) Intake and Output 09/10/18 09/10/18 09/11/18 1515:00 23:00 07:00 IntakeIntake Total 400 ml OutputOutput Total 1500 ml BalanceBalance -1100 ml Results Result Diagram: 09/11/1827 09/11/1827 Results 24hrs Laboratory Tests Test 09/10/18 19:30 09/11/18 05:27 Sodium Level 133 L 136 Potassium Level 4.4 4.3 Chloride Level 102 106 Carbon Dioxide Level 25 25 Anion Gap 6 5 Blood Urea Nitrogen 8 6 L Creatinine 0.64 0.59 Est Glomerular Filtrat Rate mL/min Glucose Level 166 113 # Calcium Level 8.5 8.5 Total Bilirubin 0.5 Direct Bilirubin 0.00 Indirect Bilirubin 0.5 Aspartate Amino Transf (AST/SGOT) 67 H Alanine Aminotransferase (ALT/SGPT) 32 Alkaline Phosphatase 148 H Total Protein 7.0 Albumin 2.8 L Globulin 4.20 H Albumin/Globulin Ratio 0.66 White Blood Count 3.0 L Red Blood Count 3.79 L Hemoglobin 9.4 L Hematocrit 31.8 L Mean Corpuscular Volume 83.9 Mean Corpuscular Hemoglobin 24.8 L Mean Corpuscular Hemoglobin Concent 29.6 L Red Cell Distribution Width 17.3 H Platelet Count 81 L Mean Platelet Volume 9.2 Immature Granulocytes % 0.300 Neutrophils % 48.8 Lymphocytes % 36.6 Monocytes % 10.5 Eosinophils % 3.1 Basophils % 0.7 Nucleated Red Blood Cells % 0.0 Immature Granulocytes # 0.010 Neutrophils # 1.4 L Lymphocytes # 1.1 Monocytes # 0.3 Eosinophils # 0.1 Basophils # 0.0 Nucleated Red Blood Cells # 0.0 Medications Medication Current Medications Dextrose/Sodium Chloride 1,000 ml @ 50 mls/hr Q20H IV Last administered on 09/11/18 11:28; Admin Dose 50 MLS/HR; Start 09/06/18 at 17:00 Pantoprazole (Protonix Tab) 40 mg DAILY@06 PO Last administered on 09/11/18 05:33; Admin Dose 40 MG; Start 09/07/18 at 06:00 Acetaminophen (Tylenol Tab) 650 mg Q6H PRN PO MILD PAIN(1-3)OR ELEVATED TEMP Last administered on 09/08/18 16:32; Admin Dose 650 MG; Start 09/06/18 at 17:00 Ondansetron HCl (Zofran Inj) 4 mg Q6H PRN IV NAUSEA AND/OR VOMITING Last administered on 09/06/18 21:57; Admin Dose 4 MG; Start 09/06/18 at 17:00 Linezolid (Zyvox) 600 mg BID PO Last administered on 09/10/18 23:53; Admin Dose 600 MG; Start 09/07/18 at 21:00 Fluconazole (Diflucan) 100 mg DAILY PO Last administered on 09/10/18 09:47; Admin Dose 100 MG; Start 09/09/18 at 09:00; Stop 09/12/18 at 08:59 Trazodone HCl (Desyrel) 25 mg HS PO Last administered on 09/10/18 23:53; Admin Dose 25 MG; Start 09/08/18 at 21:00 Morphine Sulfate (morphine) 4 mg Q3H PRN IV SEVERE PAIN LEVEL 7-10 Last administered on 5/1/19at 00:10; Admin Dose 4 MG; Start 09/09/18 at 18:00 ANASTACIA POWER NP September 11, 2018 12:07
--- NOTE | 2018-09-11 13:13 | PREAC ---
Date/Time of Note Date/Time of Note DATE: 09/11/18 TIME: 13:11 Anesthesia Eval and Record Evaluation Time Pre-Procedure Interview DATE: 09/11/18 TIME: 13:11 Age 83 Sex female NPO: 8 hrs Preoperative diagnosis biliary obstruction Planned procedure ERCP Past Medical History Past Medical History: Includes Cardio: HTN, CHF Renal: Other (pyelonephritis) Hepatic: Hepatitis, Cirrhosis GI: GERD, Other (hepatocellular carcinoma on imaging) Surgery & Anesthesia Issues No known issue Meds Anticoagulation: No Beta Ismael within 24 hr: No Reason Beta Ismael not given: Pt. not on B-Ismael Active Scripts Ibuprofen* (Motrin*) 400 Mg Tab, 400 MG PO Q6H PRN for PAIN AND OR ELEVATED TEMP, #30 TAB Prov:DARBY MENDOZA MD 09/03/18 Sulfamethoxazole/Trimethoprim* (Bactrim Ds* Tablet) 1 Each Tablet, 1 TAB PO BID, #14 TAB Prov:DARBY MENDOZA MD 09/03/18 Discontinued Reported Medications Gabapentin* (Gabapentin*) 300 Mg Capsule, 300 MG PO TID, #90 CAP 12/02/17 Omeprazole* (Omeprazole*) 40 Mg Capsule.dr, 40 MG PO DAILY, #30 CAP 12/02/17 Spironolactone* (Aldactone*) 50 Mg Tablet, 50 MG PO DAILY, #30 TAB 12/02/17 Discontinued Scripts Phenazopyridine Hcl* (Pyridium*) 100 Mg Tab, 100 MG PO BID PRN for URINARY PAIN, #6 TAB Prov:BASIL JORDAN MD 09/01/18 Cephalexin* (Keflex*) 500 Mg Capsule, 500 MG PO TID for 7 Days, CAP Prov:BASIL JORDAN MD 09/01/18 Current Medications Dextrose/Sodium Chloride 1,000 ml @ 50 mls/hr Q20H IV Last administered on 09/11/18at 11:28; Admin Dose 50 MLS/HR; Start 09/06/18 at 17:00 Pantoprazole (Protonix Tab) 40 mg DAILY@06 PO Last administered on 09/11/18at 05:33; Admin Dose 40 MG; Start 09/07/18 at 06:00 Acetaminophen (Tylenol Tab) 650 mg Q6H PRN PO MILD PAIN(1-3)OR ELEVATED TEMP L ast administered on 09/08/18at 16:32; Admin Dose 650 MG; Start 09/06/18 at 17:00 Ondansetron HCl (Zofran Inj) 4 mg Q6H PRN IV NAUSEA AND/OR VOMITING Last administered on 09/06/18 21:57; Admin Dose 4 MG; Start 09/06/18 at 17:00 Linezolid (Zyvox) 600 mg BID PO Last administered on 09/10/18 23:53; Admin Dose 600 MG; Start 09/07/18 at 21:00 Fluconazole (Diflucan) 100 mg DAILY PO Last administered on 09/10/18 09:47; Admin Dose 100 MG; Start 09/09/18 at 09:00; Stop 09/12/18 at 08:59 Trazodone HCl (Desyrel) 25 mg HS PO Last administered on 09/10/18 23:53; Admin Dose 25 MG; Start 09/08/18 at 21:00 Morphine Sulfate (morphine) 4 mg Q3H PRN IV SEVERE PAIN LEVEL 7-10 Last administered on 09/11/18 00:10; Admin Dose 4 MG; Start 09/09/18 at 18:00 Meds reviewed: Yes Allergies Coded Allergies: No Known Allergy (Unverified , 09/06/18) Allergies Reviewed: Yes Labs/Studies Labs Reviewed: Reviewed by anesthesiologist Result Diagram: 09/11/1852609/11/18526 Laboratory Tests 09/11/18 05:27 test: N/A Pre-procedure Exam Last vitals Vital Signs Date Temp Pulse Resp B/P (MAP) Pulse Ox O2 O2 Flow FiO2 Time Delivery Rate 09/11/18 98.2 69 18 125/63 93 Room Air 07:50 (83) Airway: Adequate mouth opening, Adequate thyromental dist Mallampati: Mallampati II Teeth: Normal Lung: Normal Heart: Normal ASA Physical Status ASA physical status: 3 Emergency: None Planned Anesthetic General/MAC: ETT Planned Pain Management Parenteral pain med Pre-operative Attestations Prior to commencing anesthesia and surgery, the patient was re-evaluated, there was verification of: *The patient's identity *The results of appropriate recent lab work and preoperative vital signs *The above evaluation not changing prior to induction *Anesthetic plan, risk benefits, alternative and complications discussed with patient/family; questions answered; patient/family understands, accepts and wishes to proceed. WILIAN DURAN MD September 11, 2018 13:13
--- NOTE | 2018-09-11 13:15 | CONS ---
Assessment/Plan Assessment/Plan Hospital Course (Demo Recall) No acute events over night, looks comfortable, no fevers Urine culture on admission grew enterococcus species and Eve albicans. Antimicrobials: fluconazole, Zyvox indwelling: Canas Physical examination: Well-developed wasted elderly woman in no distress. Head atraumatic normocephalic sclera nonicteric vehicle mucosa dry neck is supple chest rise symmetrical breath sounds diminished to bases. Heart: S1-S2. Abdomen soft bowel sounds present. Extremities without cyanosis. Assessment: 1. Recurrent UTI 2. Hepatocellular carcinoma per CT of the abdomen 3. 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 Plan: Clinically unchanged, MRCP noted, GI rec-s noted, may require ERCP, continue on current antibiotic regimen, pending hepatobiliary eval Consultation Date/Type/Reason Admit Date/Time Sep 06, 2018 at 15:57 Initial Consult Date 09/09/18 Type of Consult id Requesting Provider: ROSITA SAUCEDO MD Date/Time of Note DATE: 09/11/18 TIME: 11:57 Exam/Review of Systems Exam Vitals Vital Signs Date Temp Pulse Resp B/P (MAP) Pulse Ox O2 O2 Flow FiO2 Time Delivery Rate 09/11/18 98.2 69 18 125/63 93 Room Air 07:50 (83) Intake and Output 09/10/18 09/10/18 09/11/18 1515:00 23:00 07:00 IntakeIntake Total 400 ml OutputOutput Total 1500 ml BalanceBalance -1100 ml Results Result Diagram: 09/11/18 0527 09/11/18 0527 Results 24hrs Laboratory Tests Test 09/10/18 19:30 09/11/18 05:27 Sodium Level 133 L 136 Potassium Level 4.4 4.3 Chloride Level 102 106 Carbon Dioxide Level 25 25 Anion Gap 6 5 Blood Urea Nitrogen 8 6 L Creatinine 0.64 0.59 Est Glomerular Filtrat Rate mL/min Glucose Level 166 113 # Calcium Level 8.5 8.5 Total Bilirubin 0.5 Direct Bilirubin 0.00 Indirect Bilirubin 0.5 Aspartate Amino Transf (AST/SGOT) 67 H Alanine Aminotransferase (ALT/SGPT) 32 Alkaline Phosphatase 148 H Total Protein 7.0 Albumin 2.8 L Globulin 4.20 H Albumin/Globulin Ratio 0.66 White Blood Count 3.0 L Red Blood Count 3.79 L Hemoglobin 9.4 L Hematocrit 31.8 L Mean Corpuscular Volume 83.9 Mean Corpuscular Hemoglobin 24.8 L Mean Corpuscular Hemoglobin Concent 29.6 L Red Cell Distribution Width 17.3 H Platelet Count 81 L Mean Platelet Volume 9.2 Immature Granulocytes % 0.300 Neutrophils % 48.8 Lymphocytes % 36.6 Monocytes % 10.5 Eosinophils % 3.1 Basophils % 0.7 Nucleated Red Blood Cells % 0.0 Immature Granulocytes # 0.010 Neutrophils # 1.4 L Lymphocytes # 1.1 Monocytes # 0.3 Eosinophils # 0.1 Basophils # 0.0 Nucleated Red Blood Cells # 0.0 Medications Medication Current Medications Dextrose/Sodium Chloride 1,000 ml @ 50 mls/hr Q20H IV Last administered on 09/11/18 11:28; Admin Dose 50 MLS/HR; Start 09/06/18 at 17:00 Pantoprazole (Protonix Tab) 40 mg DAILY@06 PO Last administered on 09/11/18 05:33; Admin Dose 40 MG; Start 09/07/18 at 06:00 Acetaminophen (Tylenol Tab) 650 mg Q6H PRN PO MILD PAIN(1-3)OR ELEVATED TEMP Last administered on 09/08/18 16:32; Admin Dose 650 MG; Start 09/06/18 at 17:00 Ondansetron HCl (Zofran Inj) 4 mg Q6H PRN IV NAUSEA AND/OR VOMITING Last administered on 09/06/18 21:57; Admin Dose 4 MG; Start 09/06/18 at 17:00 Linezolid (Zyvox) 600 mg BID PO Last administered on 09/10/18 23:53; Admin Dose 600 MG; Start 09/07/18 at 21:00 Fluconazole (Diflucan) 100 mg DAILY PO Last administered on 09/10/18 09:47; Admin Dose 100 MG; Start 09/09/18 at 09:00; Stop 09/12/18 at 08:59 Trazodone HCl (Desyrel) 25 mg HS PO Last administered on 09/10/18 23:53; Admin Dose 25 MG; Start 09/08/18 at 21:00 Morphine Sulfate (morphine) 4 mg Q3H PRN IV SEVERE PAIN LEVEL 7-10 Last administered on 5/1/19at 00:10; Admin Dose 4 MG; Start 09/09/18 at 18:00 ANASTACIA POWER NP September 11, 2018 13:15
[2018-09-11] MEDS ORDERED: IOHEXOL 300MG/ML 30 ML BTL ONE (17:42)
[2018-09-11] MEDS ORDERED: ETOMIDATE 20 MG INJ ONE (18:33)
[2018-09-11] MEDS ORDERED: LIDOCAINE 2% (SDV) 5 ML INJ ONE (18:35)
[2018-09-11] MEDS ORDERED: ONDANSETRON 4 MG INJ IV PRN (19:00)
[2018-09-11] MEDS ORDERED: DIPHENHYDRAMINE 50 MG INJ IV PRN (19:00)
[2018-09-11] MEDS ORDERED: PROCHLORPERAZINE 10 MG INJ IV PRN (19:00)
[2018-09-11] MEDS ORDERED: MEPERIDINE 25 MG INJ IV PRN (19:00)
[2018-09-11] MEDS ORDERED: FENTAnyl 50 MCG/ML VIAL IV PRN (19:00)
[2018-09-11] MEDS ORDERED: ONDANSETRON 4 MG INJ ONE (19:21)
[2018-09-11] MEDS ORDERED: FAMOTIDINE 20 MG INJ ONE (19:21)
[2018-09-11] MEDS ORDERED: SUCCINYLCHOLINE CHLORIDE 100 MG/5 ML SYG IV ONE (19:53)
--- NOTE | 2018-09-11 20:15 | OPR ---
Date/Time of Note Date/Time of Note DATE: 09/11/18 TIME: 20:08 Operative Report Preoperative Diagnosis biliary dilatation gallbladder sludge r/o cbd stones vs neoplasm of bileduct Postoperative Diagnosis dilated cbd prob distal cbd stricture no cbd stones Operation/Procedure Performed ercp done sphincterotomy done brushing of cbd stricture cbd stent placed after balloon sweep Surgeon see signature line Business Owner/Engineer none Anesthesia Type: general Anesthesiologist: WILIAN DURAN MD Estimated Blood Loss: none Transfusion none Specimen brushing of cbd stricture Grafts/Implants none Tubes/Drains none Complications none Pt Condition Post Procedure: stable Disposition: PACU Indications dilated cbd r/o cbd stones vs cbd stricture neoplasm Procedure Description ercp and sphincterotomy performed brushing of distal cbd stricture done cbd stent placed YO ROACH MD September 11, 2018 20:15
--- NOTE | 2018-09-11 20:21 | PAC ---
Date/Time of Note Date/Time of Note DATE: 09/11/18 TIME: 20:20 Post-Anesthesia Notes Post-Anesthesia Note Last documented vital signs Vital Signs Date Temp Pulse Resp B/P (MAP) Pulse Ox O2 O2 Flow FiO2 Time Delivery Rate 09/11/18 98.0 70 18 130/70 93 Room Air 14:39 (90) Activity: WNL Respiratory function: WNL Cardiovascular function: WNL Mental status: Baseline Pain reasonably controlled: Yes Hydration appropriate: Yes Nausea/Vomiting absent: Yes Comments Bp: 139/70 HR: 82 RR: 15 T: 98. SaO2: 98% WILIAN DURAN MD September 11, 2018 20:21
[2018-09-11] MEDS ORDERED: LABETALOL HCL 20MG INJ IV PRN (20:30)
[2018-09-11] MEDS ORDERED: hydrALAzine 20 MG INJ IV PRN (20:30)
[2018-09-11] MEDS ORDERED: LACTATED RINGER'S 1,000 ML IV SCH (20:30)
[2018-09-11] MEDS: HYDROmorphONE 1 MG/5 ML IV SYRINGE IV PRN ×2 (20:49→20:54)
[2018-09-11] MEDS: traZODone 50 MG TAB PO SCH (22:05)
[2018-09-12 02:25] VITALS: BP 135/72; PULSE 77; RESP 18
--- NOTE | 2018-09-12 04:22 | GILP ---
DATE OF PROCEDURE: NAME OF PROCEDURE: ERCP, sphincterotomy and brushing of the distal bile duct stricture, balloon swee ping of the common bile duct and a CBD stent was placed. PREOPERATIVE DIAGNOSIS: The patient presenting with history of abdominal pain, abnormal liver functi ons and CAT scan and MRCP showed evidence of sludge in the gallbladder, dilated gallbladder, dilatati on of the common bile duct and probable stricture of the distal common bile duct. The patient also h as what looks like hepatocellular carcinoma. POSTOPERATIVE DIAGNOSES: Dilated common bile duct with probably stricture of the distal common bile duct. The gallbladder was noted with sludge. The ampulla was found to be rather flat. DESCRIPTION OF PROCEDURE: After informed written consent was obtained, the patient was intubated by anesthesiologist, Dr. Pichardo. When the patient was in prone position, Olympus video side-viewing duode noscope was inserted into the oropharynx, then into the esophagus, subsequently into the stomach and then into the duodenum. Ampulla was located in normal location; however, the ampulla appeared to be rather flat. There was no elevation of the ampulla water as we would normally see. At this time, at tempts were made to cannulate through the help of a Dreamtome but cannulation was not achieved, but a t this time, I used a Contour ERCP cannula and then with this, I cannulated the common bile duct. A guidewire was inserted into the distal part of the common bile duct; however, the wire could not be a dvanced all the way to the common bile duct. At this time, a Jagtome, which is a sphincterotome, was inserted into the ampulla, into the common bile duct and guidewire was inserted into the common hepa tic duct and common bile duct was found to be significantly dilated. Sludge cannot be excluded. Sma ll stone and other stones cannot be excluded. No large stones noted. Gallbladder was visualized, wh ich showed possible sludge. At this time, I proceeded to do a sphincterotomy. About 8 mm cut of the ampulla was made by using the Jagtome. Following the sphincterotomy, a 12 x 9 stone extraction ball oon was inserted into the common hepatic duct balloon sweeping. Sweeping of the common bile duct was performed several times. lead to some amount of sludge and no stones noted. Subsequently, it appears that the distal part of the common bile duct is not entering into the ampulla in a direct fa shion. There seemed to be horizontal shelving. It is possible that I am dealing here with a strictu re of the distal common bile duct near the ampulla and because of this, I put a brush and the brushin g of the distal common bile duct was performed. Subsequently, a 10 x 7 Crandall type of endobiliary prosthesis was inserted into the common bile duct across the ampulla into the duodenum. Several tito tographs were obtained and the procedure was terminated. PLAN: Recommend wait for the brushings of the distal bile duct and the patient may need a cholecyste ctomy. Dictated By: YO ROACH MD NC/NTS Conf#: [id number] DID#: [id number] CC: ROSITA SAUCEDO MD;*EndCC*
[2018-09-12] MEDS: PANTOPRAZOLE (EC) 40 MG TAB PO SCH (06:10)
[2018-09-12 07:40] VITALS: BP 110/60; PULSE 76; RESP 18
--- NOTE | 2018-09-12 09:35 | PN ---
Date/Time of Note Date/Time of Note DATE: 09/12/18 TIME: 09:34 Assessment/Plan VTE Prophylaxis Risk score (from Nsg)>0 risk: 5 SCD applied (from Nsg): Yes Lines/Catheters IV Catheter Type (from Nrsg): Peripheral IV Urinary Cath still in place: Yes Assessment/Plan Assessment/Plan -Pyelonephritis - ID consult- - pain control -Leukopenia - monitor CBC Hepatocellular Carcinoma - per oncology - Elevated AFP - hEM /ONC follows -Hydronephrosis - urology consult- dr colin notified - pain control CHF HTN GERD- PPI SCD Dw Dr Whittington Result Diagram: 09/12/18 0441 09/12/18 0441 Results 24hrs Laboratory Tests Test 09/11/18 16:21 09/12/18 04:41 Prothrombin Time 16.0 H Prothrombin Time Ratio 1.3 INR International Normalized Ratio 1.27 Activated Partial Thromboplast Time 36.5 H White Blood Count 3.2 L Red Blood Count 3.84 L Hemoglobin 9.7 L Hematocrit 32.3 L Mean Corpuscular Volume 84.1 Mean Corpuscular Hemoglobin 25.3 L Mean Corpuscular Hemoglobin Concent 30.0 L Red Cell Distribution Width 17.3 H Platelet Count 72 L Mean Platelet Volume 9.3 Immature Granulocytes % 0.300 Neutrophils % 55.8 Lymphocytes % 31.5 Monocytes % 10.3 Eosinophils % 1.2 Basophils % 0.9 Nucleated Red Blood Cells % 0.0 Immature Granulocytes # 0.010 Neutrophils # 1.8 Lymphocytes # 1.0 Monocytes # 0.3 Eosinophils # 0.0 Basophils # 0.0 Nucleated Red Blood Cells # 0.0 Sodium Level 136 Potassium Level 4.3 Chloride Level 104 Carbon Dioxide Level 27 Anion Gap 5 Blood Urea Nitrogen 8 Creatinine 0.71 Est Glomerular Filtrat Rate mL/min Glucose Level 114 Calcium Level 8.6 Exam/Review of Systems Exam Vitals Vital Signs Date Temp Pulse Resp B/P (MAP) Pulse Ox O2 O2 Flow FiO2 Time Delivery Rate 09/12/18 98.3 76 18 110/60 94 Room Air 07:40 (77) 09/11/18 3.0 21:08 Intake and Output 09/11/18 09/11/18 09/12/18 1515:00 23:00 07:00 IntakeIntake Total 500 ml 1150 ml 830 ml OutputOutput Total 425 ml BalanceBalance 500 ml 1150 ml 405 ml Results Results 24hrs Laboratory Tests Test 09/11/18 16:21 09/12/18 04:41 Prothrombin Time 16.0 H Prothrombin Time Ratio 1.3 INR International Normalized Ratio 1.27 Activated Partial Thromboplast Time 36.5 H White Blood Count 3.2 L Red Blood Count 3.84 L Hemoglobin 9.7 L Hematocrit 32.3 L Mean Corpuscular Volume 84.1 Mean Corpuscular Hemoglobin 25.3 L Mean Corpuscular Hemoglobin Concent 30.0 L Red Cell Distribution Width 17.3 H Platelet Count 72 L Mean Platelet Volume 9.3 Immature Granulocytes % 0.300 Neutrophils % 55.8 Lymphocytes % 31.5 Monocytes % 10.3 Eosinophils % 1.2 Basophils % 0.9 Nucleated Red Blood Cells % 0.0 Immature Granulocytes # 0.010 Neutrophils # 1.8 Lymphocytes # 1.0 Monocytes # 0.3 Eosinophils # 0.0 Basophils # 0.0 Nucleated Red Blood Cells # 0.0 Sodium Level 136 Potassium Level 4.3 Chloride Level 104 Carbon Dioxide Level 27 Anion Gap 5 Blood Urea Nitrogen 8 Creatinine 0.71 Est Glomerular Filtrat Rate mL/min Glucose Level 114 Calcium Level 8.6 Medications Medication Current Medications Dextrose/Sodium Chloride 1,000 ml @ 50 mls/hr Q20H IV Last administered on 09/11/18 22:56; Admin Dose 50 MLS/HR; Start 09/06/18 at 17:00 Pantoprazole (Protonix Tab) 40 mg DAILY@06 PO Last administered on 09/12/18 06:10; Admin Dose 40 MG; Start 09/07/18 at 06:00 Acetaminophen (Tylenol Tab) 650 mg Q6H PRN PO MILD PAIN(1-3)OR ELEVATED TEMP Last administered on 09/08/18at 16:32; Admin Dose 650 MG; Start 09/06/18 at 17:00 Ondansetron HCl (Zofran Inj) 4 mg Q6H PRN IV NAUSEA AND/OR VOMITING Last administered on 09/06/18at 21:57; Admin Dose 4 MG; Start 09/06/18 at 17:00 Linezolid (Zyvox) 600 mg BID PO Last administered on 09/11/18 22:06; Admin Dose 600 MG; Start 4/27/19 at 21:00 Trazodone HCl (Desyrel) 25 mg HS PO Last administered on 09/11/18at 22:05; Admin Dose 25 MG; Start 09/08/18 at 21:00 Morphine Sulfate (morphine) 4 mg Q3H PRN IV SEVERE PAIN LEVEL 7-10 Last administered on 09/11/18at 00:10; Admin Dose 4 MG; Start 09/09/18 at 18:00 ABRAHAM DOYLE September 12, 2018 09:35
[2018-09-12] MEDS: ZYVOX 600 MG TAB PO SCH ×2 (10:03→21:37)
--- NOTE | 2018-09-12 13:49 | CONS ---
Assessment/Plan Assessment/Plan Hospital Course (Demo Recall) Patient is alert looks comfortable no fevers overnight she is status post ERCP sphincterotomy and common bile duct stent placement this a.m. Urine culture on admission grew enterococcus species and Eve albicans. Antimicrobials: fluconazole, Zyvox indwelling: Canas Physical examination: Well-developed wasted elderly woman in no distress. Head atraumatic normocephalic sclera nonicteric vehicle mucosa dry neck is supple chest rise symmetrical breath sounds diminished to bases. Heart: S1-S2. Abdomen soft bowel sounds present. Extremities without cyanosis. Assessment: 1. Recurrent UTI 2. Hepatocellular carcinoma per CT of the abdomen 3. 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 Plan: Clinically stable, continue on current antibiotic regimen for couple more days, GI/oncology rec-s Consultation Date/Type/Reason Admit Date/Time Sep 06, 2018 at 15:57 Initial Consult Date 09/09/18 Type of Consult id Requesting Provider: ROSITA SAUCEDO MD Date/Time of Note DATE: 09/12/18 TIME: 13:48 Exam/Review of Systems Exam Vitals Vital Signs Date Temp Pulse Resp B/P (MAP) Pulse Ox O2 O2 Flow FiO2 Time Delivery Rate 09/12/18 98.3 76 18 110/60 94 Room Air 07:40 (77) 09/11/18 3.0 21:08 Intake and Output 09/11/18 09/11/18 09/12/18 1515:00 23:00 07:00 IntakeIntake Total 500 ml 1150 ml 830 ml OutputOutput Total 425 ml BalanceBalance 500 ml 1150 ml 405 ml Results Result Diagram: 09/12/18 0441 09/12/18 0441 Results 24hrs Laboratory Tests Test 09/11/18 16:21 09/12/18 04:41 Prothrombin Time 16.0 H Prothrombin Time Ratio 1.3 INR International Normalized Ratio 1.27 Activated Partial Thromboplast Time 36.5 H White Blood Count 3.2 L Red Blood Count 3.84 L Hemoglobin 9.7 L Hematocrit 32.3 L Mean Corpuscular Volume 84.1 Mean Corpuscular Hemoglobin 25.3 L Mean Corpuscular Hemoglobin Concent 30.0 L Red Cell Distribution Width 17.3 H Platelet Count 72 L Mean Platelet Volume 9.3 Immature Granulocytes % 0.300 Neutrophils % 55.8 Lymphocytes % 31.5 Monocytes % 10.3 Eosinophils % 1.2 Basophils % 0.9 Nucleated Red Blood Cells % 0.0 Immature Granulocytes # 0.010 Neutrophils # 1.8 Lymphocytes # 1.0 Monocytes # 0.3 Eosinophils # 0.0 Basophils # 0.0 Nucleated Red Blood Cells # 0.0 Sodium Level 136 Potassium Level 4.3 Chloride Level 104 Carbon Dioxide Level 27 Anion Gap 5 Blood Urea Nitrogen 8 Creatinine 0.71 Est Glomerular Filtrat Rate mL/min Glucose Level 114 Calcium Level 8.6 Medications Medication Current Medications Dextrose/Sodium Chloride 1,000 ml @ 50 mls/hr Q20H IV Last administered on 09/11/18 22:56; Admin Dose 50 MLS/HR; Start 09/06/18 at 17:00 Pantoprazole (Protonix Tab) 40 mg DAILY@06 PO Last administered on 09/12/18 06:10; Admin Dose 40 MG; Start 09/07/18 at 06:00 Acetaminophen (Tylenol Tab) 650 mg Q6H PRN PO MILD PAIN(1-3)OR ELEVATED TEMP Last administered on 09/08/18 16:32; Admin Dose 650 MG; Start 09/06/18 at 17:00 Ondansetron HCl (Zofran Inj) 4 mg Q6H PRN IV NAUSEA AND/OR VOMITING Last administered on 09/06/18 21:57; Admin Dose 4 MG; Start 09/06/18 at 17:00 Linezolid (Zyvox) 600 mg BID PO Last administered on 09/12/18 10:03; Admin Dose 600 MG; Start 09/07/18 at 21:00 Trazodone HCl (Desyrel) 25 mg HS PO Last administered on 09/11/18 22:05; Admin Dose 25 MG; Start 09/08/18 at 21:00 Morphine Sulfate (morphine) 4 mg Q3H PRN IV SEVERE PAIN LEVEL 7-10 Last administered on 09/11/18 00:10; Admin Dose 4 MG; Start 09/09/18 at 18:00 ANASTACIA POWER NP September 12, 2018 13:49
[2018-09-12 14:23] VITALS: BP 106/57; PULSE 81; RESP 16
--- NOTE | 2018-09-12 15:41 | CONS ---
Assessment/Plan Assessment/Plan Hospital Course (Demo Recall) #Elevated AFP #Hep C cirrhosis #Biliary obstruction #Pyelonephritis #Leukopenia - 2/2 Cirrhosis #CHF #HTN -Triple phase CT did demonstrate a 2.7 cm arterial enhancing observation with corresponding washout and delayed capsular enhancement represents hepatocellular carcinoma, LI-RADS 5. -pt needs referral to hepatobiliary surgeon as an out patient. this can likely be resected -patient's blood counts are low 2/2 to her Hep C cirrhosis but I do not think she need blood transfusion or growth factor at this time -s/p ERCP to relieve biliary obstruction. will follow up brushings -continue management of CHF and HTN per PMD Thank you for the opportunity to participate in this patients care A total of 40 minutes of face to face time was spent speaking with the patient, of which greater than 50% was spent in counseling and coordination of care and the detailed question and answer session. Consultation Date/Type/Reason Admit Date/Time Sep 06, 2018 at 15:57 Initial Consult Date 09/09/18 Type of Consult oncology Reason for Consultation HCC Requesting Provider: ROSITA SAUCEDO MD Date/Time of Note DATE: 09/12/18 TIME: 15:39 24 HR Interval Summary Free Text/Dictation no acute overnight events. pt had an ERCP done. CBD stent was placed Exam/Review of Systems Exam Vitals Vital Signs Date Temp Pulse Resp B/P (MAP) Pulse Ox O2 O2 Flow FiO2 Time Delivery Rate 09/12/18 99.2 81 16 106/57 94 Room Air 14:23 (73) 09/11/18 3.0 21:08 Intake and Output 09/11/18 09/11/18 09/12/18 1515:00 23:00 07:00 IntakeIntake Total 500 ml 1150 ml 830 ml OutputOutput Total 425 ml BalanceBalance 500 ml 1150 ml 405 ml Constitutional: alert, oriented, distress Psych: anxiety, depression Head: normocephalic Eyes: nl conjunctiva ENMT: nl external ears & nose Neck: supple Respiratory: clear to auscultation Cardiovascular: regular rate and rhythm Gastrointestinal: soft Musculoskeletal: nl extremities to inspection Results Result Diagram: 09/12/18 0441 09/12/18 0441 Results 24hrs Laboratory Tests Test 09/11/18 16:21 09/12/18 04:41 Prothrombin Time 16.0 H Prothrombin Time Ratio 1.3 INR International Normalized Ratio 1.27 Activated Partial Thromboplast Time 36.5 H White Blood Count 3.2 L Red Blood Count 3.84 L Hemoglobin 9.7 L Hematocrit 32.3 L Mean Corpuscular Volume 84.1 Mean Corpuscular Hemoglobin 25.3 L Mean Corpuscular Hemoglobin Concent 30.0 L Red Cell Distribution Width 17.3 H Platelet Count 72 L Mean Platelet Volume 9.3 Immature Granulocytes % 0.300 Neutrophils % 55.8 Lymphocytes % 31.5 Monocytes % 10.3 Eosinophils % 1.2 Basophils % 0.9 Nucleated Red Blood Cells % 0.0 Immature Granulocytes # 0.010 Neutrophils # 1.8 Lymphocytes # 1.0 Monocytes # 0.3 Eosinophils # 0.0 Basophils # 0.0 Nucleated Red Blood Cells # 0.0 Sodium Level 136 Potassium Level 4.3 Chloride Level 104 Carbon Dioxide Level 27 Anion Gap 5 Blood Urea Nitrogen 8 Creatinine 0.71 Est Glomerular Filtrat Rate mL/min Glucose Level 114 Calcium Level 8.6 Medications Medication Current Medications Dextrose/Sodium Chloride 1,000 ml @ 50 mls/hr Q20H IV Last administered on 09/11/18 22:56; Admin Dose 50 MLS/HR; Start 09/06/18 at 17:00 Pantoprazole (Protonix Tab) 40 mg DAILY@06 PO Last administered on 09/12/18 06:10; Admin Dose 40 MG; Start 09/07/18 at 06:00 Acetaminophen (Tylenol Tab) 650 mg Q6H PRN PO MILD PAIN(1-3)OR ELEVATED TEMP Last administered on 09/08/18 16:32; Admin Dose 650 MG; Start 09/06/18 at 17:00 Ondansetron HCl (Zofran Inj) 4 mg Q6H PRN IV NAUSEA AND/OR VOMITING Last administered on 09/06/18 21:57; Admin Dose 4 MG; Start 09/06/18 at 17:00 Linezolid (Zyvox) 600 mg BID PO Last administered on 09/12/18 10:03; Admin Dose 600 MG; Start 09/07/18 at 21:00 Trazodone HCl (Desyrel) 25 mg HS PO Last administered on 09/11/18 22:05; Admin Dose 25 MG; Start 09/08/18 at 21:00 Morphine Sulfate (morphine) 4 mg Q3H PRN IV SEVERE PAIN LEVEL 7-10 Last administered on 09/11/18at 00:10; Admin Dose 4 MG; Start 09/09/18 at 18:00 BUZZ MOLINA M.D. September 12, 2018 15:41
[2018-09-12] MEDS ORDERED: LACTULOSE 30ML CUP PO PRN (19:00)
[2018-09-12] MEDS ORDERED: CEPASTAT LOZENGE MT PRN (19:00)
[2018-09-12 20:20] VITALS: BP 116/62; PULSE 80; RESP 18
[2018-09-12] MEDS: traZODone 50 MG TAB PO SCH (21:36)
[2018-09-12] MEDS: DEXTROSE 5%-0.45% NACL 1,000 ML IV SCH (21:49)
--- NOTE | 2018-09-12 22:03 | CONS ---
DATE OF ADMISSION: 09/06/2018 DATE OF CONSULTATION: SUBJECTIVE: At this time, patient is comfortable. She does have nonspecific abdominal pain and back pain, mostly in the bilateral flanks. She is a poor historian. PHYSICAL EXAMINATION: VITAL SIGNS: Temperature is 99.2, pulse is 81 and blood pressure is 106/57. CARDIOVASCULAR: Normal heart sounds. RESPIRATORY: Normal breath sounds. ABDOMEN: Showed a soft abdomen. No specific tenderness noted anywhere. LABORATORY WORKUP: WBC count is 3200 with neutrophils 55, lymphocytes 31 and monocytes 10. On 09/10/2018, the alkaline phosphatase is 148 and AST is 67. CA 19-9 is 47.6. The alpha fetoprotein is 140. ERCP showed evidence of a dilated common bile duct and blunt ending of the common bile duct distally is noted like a shell-flake appearance noted of the distal common bile duct. Small stricture cannot be excluded. CBD stent was placed and brushings of the distal bile duct was done. Balloon sweeping was performed, resulting in removal of small sludge. CLINICAL IMPRESSION: 1. She has got a small hepatocellular carcinoma. 2. There is evidence of a dilated common bile duct with possible stricture in the distal bile duct. Brushings of the distal bile duct is pending. CA 19-9 is normal. The gallbladder wall found to be thickened on MRCP. Sludge was found in the gallbladder on MRCP. Al so, dilated lumen of the appendix was reported. PLAN: At this time, I discussed with Dr. Burr, if patient needs surgery for hepatoma and at the same time, she probably needs a cholecystectomy, I discussed with Dr. Burr that the patient can b e referred to the [facility]. At this time, I am waiting to hear from the [facility] surgeon bef ore we make further recommendations. Dictated By: YO DIAL/MOLLY Conf#: [id number] DID#: [id number] CC: ROSITA BURR MD;*EndCC*
[2018-09-13] MEDS: morphine 4 MG/ML VIAL IV PRN ×2 (01:01→12:19)
[2018-09-13 02:20] VITALS: BP 101/57; PULSE 84; RESP 18
--- NOTE | 2018-09-13 05:35 | PN ---
Date/Time of Note Date/Time of Note DATE: 09/13/18 TIME: 05:34 Assessment/Plan VTE Prophylaxis Risk score (from Nsg)>0 risk: 9 SCD applied (from Nsg): Yes Lines/Catheters IV Catheter Type (from Nrsg): Peripheral IV Urinary Cath still in place: Yes Reason Cath still needed: urinary retention Assessment/Plan Assessment/Plan -Pyelonephritis - ID consult- - pain control -Leukopenia - monitor CBC Hepatocellular Carcinoma - per oncology - Elevated AFP - hEM /ONC follows -Hydronephrosis - urology consult- dr colin notified - pain control CHF HTN GERD- PPI SCD Result Diagram: 09/12/1844009/12/18440 Exam/Review of Systems Exam Vitals Vital Signs Date Temp Pulse Resp B/P (MAP) Pulse Ox O2 O2 Flow FiO2 Time Delivery Rate 09/13/18 98.3 84 18 101/57 93 02:20 (72) 09/12/18 Room Air 14:23 09/11/18 3.0 21:08 Intake and Output 09/12/18 09/12/18 09/13/18 1515:00 23:00 07:00 IntakeIntake Total 250 ml 1200 ml 480 ml OutputOutput Total 800 ml 725 ml BalanceBalance 250 ml 400 ml -245 ml Medications Medication Current Medications Dextrose/Sodium Chloride 1,000 ml @ 50 mls/hr Q20H IV Last administered on 09/12/18at 21:49; Admin Dose 50 MLS/HR; Start 09/06/18 at 17:00 Pantoprazole (Protonix Tab) 40 mg DAILY@06 PO Last administered on 09/12/18at 06:10; Admin Dose 40 MG; Start 09/07/18 at 06:00 Acetaminophen (Tylenol Tab) 650 mg Q6H PRN PO MILD PAIN(1-3)OR ELEVATED TEMP Last administered on 09/08/18at 16:32; Admin Dose 650 MG; Start 09/06/18 at 17:00 Ondansetron HCl (Zofran Inj) 4 mg Q6H PRN IV NAUSEA AND/OR VOMITING Last administered on 09/06/18at 21:57; Admin Dose 4 MG; Start 09/06/18 at 17:00 Linezolid (Zyvox) 600 mg BID PO Last administered on 5/2/19at 21:37; Admin Dose 600 MG; Start 09/07/18 at 21:00 Trazodone HCl (Desyrel) 25 mg HS PO Last administered on 09/12/18at 21:36; Admin Dose 25 MG; Start 09/08/18 at 21:00 Morphine Sulfate (morphine) 4 mg Q3H PRN IV SEVERE PAIN LEVEL 7-10 Last administered on 09/13/18 01:01; Admin Dose 4 MG; Start 09/09/18 at 18:00 Lactulose (Enulose) 30 gm DAILY PRN PO CONSTIPATION; Start 09/12/18 at 19:00 Phenol (Cepastat Lozenge) 1 lozenge Q1H PRN MT sore throat; Start 09/12/18 at 19:00 ABRAHAM DOYLE September 13, 2018 05:35
[2018-09-13] MEDS: PANTOPRAZOLE (EC) 40 MG TAB PO SCH (06:01)
[2018-09-13 08:00] VITALS: BP 111/65; PULSE 87; RESP 16
[2018-09-13] MEDS: ZYVOX 600 MG TAB PO SCH ×2 (08:43→21:11)
--- NOTE | 2018-09-13 12:06 | CONS ---
Assessment/Plan Assessment/Plan Hospital Course (Demo Recall) #Elevated AFP #Hep C cirrhosis #Biliary obstruction #Pyelonephritis #Leukopenia - 2/2 Cirrhosis #CHF #HTN -Triple phase CT did demonstrate a 2.7 cm arterial enhancing observation with corresponding washout and delayed capsular enhancement represents hepatocellular carcinoma, LI-RADS 5. -pt needs referral to hepatobiliary surgeon as an out patient. this can likely be resected -patient's blood counts are low 2/2 to her Hep C cirrhosis but I do not think she need blood transfusion or growth factor at this time -s/p ERCP to relieve biliary obstruction. will follow up brushings -continue management of CHF and HTN per PMD Thank you for the opportunity to participate in this patients care A total of 40 minutes of face to face time was spent speaking with the patient, of which greater than 50% was spent in counseling and coordination of care and the detailed question and answer session. Consultation Date/Type/Reason Admit Date/Time Sep 06, 2018 at 15:57 Initial Consult Date 09/09/18 Type of Consult oncology Reason for Consultation HCC Requesting Provider: ROSITA SAUCEDO MD Date/Time of Note DATE: 09/13/18 TIME: 12:04 24 HR Interval Summary Free Text/Dictation still waiting on path from ERCP brushings Exam/Review of Systems Exam Vitals Vital Signs Date Temp Pulse Resp B/P (MAP) Pulse Ox O2 O2 Flow FiO2 Time Delivery Rate 09/13/18 99.0 87 16 111/65 94 Nasal 08:00 (80) Cannula 09/11/18 3.0 21:08 Intake and Output 09/12/18 09/12/18 09/13/18 1515:00 23:00 07:00 IntakeIntake Total 250 ml 1200 ml 880 ml OutputOutput Total 800 ml 725 ml BalanceBalance 250 ml 400 ml 155 ml Constitutional: alert Psych: anxiety, confusion, depression Head: normocephalic Eyes: nl conjunctiva ENMT: nl external ears & nose Neck: supple Respiratory: clear to auscultation Cardiovascular: regular rate and rhythm Gastrointestinal: soft Musculoskeletal: nl extremities to inspection Extremities: normal pulses Results Result Diagram: 09/12/18 04409/12/18 044 Medications Medication Current Medications Dextrose/Sodium Chloride 1,000 ml @ 50 mls/hr Q20H IV Last administered on 5/2/19at 21:49; Admin Dose 50 MLS/HR; Start 09/06/18 at 17:00 Pantoprazole (Protonix Tab) 40 mg DAILY@06 PO Last administered on 09/13/18 06:01; Admin Dose 40 MG; Start 09/07/18 at 06:00 Acetaminophen (Tylenol Tab) 650 mg Q6H PRN PO MILD PAIN(1-3)OR ELEVATED TEMP Last administered on 09/08/18 16:32; Admin Dose 650 MG; Start 09/06/18 at 17:00 Ondansetron HCl (Zofran Inj) 4 mg Q6H PRN IV NAUSEA AND/OR VOMITING Last a dministered on 09/06/18 21:57; Admin Dose 4 MG; Start 09/06/18 at 17:00 Linezolid (Zyvox) 600 mg BID PO Last administered on 09/13/18 08:43; Admin Dose 600 MG; Start 09/07/18 at 21:00 Trazodone HCl (Desyrel) 25 mg HS PO Last administered on 09/12/18 21:36; Admin Dose 25 MG; Start 09/08/18 at 21:00 Morphine Sulfate (morphine) 4 mg Q3H PRN IV SEVERE PAIN LEVEL 7-10 Last administered on 09/13/18 01:01; Admin Dose 4 MG; Start 09/09/18 at 18:00 Lactulose (Enulose) 30 gm DAILY PRN PO CONSTIPATION; Start 09/12/18 at 19:00 Phenol (Cepastat Lozenge) 1 lozenge Q1H PRN MT sore throat; Start 09/12/18 at 19:00 BUZZ MOLINA M.D. September 13, 2018 12:06
[2018-09-13 14:00] VITALS: BP 124/63; PULSE 83; RESP 17
--- NOTE | 2018-09-13 14:16 | CONS ---
Assessment/Plan Assessment/Plan Hospital Course (Demo Recall) Patient is alert looks comfortable no fevers overnight Urine culture on admission grew enterococcus species and Eve albicans. Antimicrobials: Zyvox indwelling: Canas Physical examination: Well-developed wasted elderly woman in no distress. Head atraumatic normocephalic sclera nonicteric vehicle mucosa dry neck is supple chest rise symmetrical breath sounds diminished to bases. Heart: S1-S2. Abdomen soft bowel sounds present. Extremities without cyanosis. Assessment: 1. Recurrent UTI 2. Hepatocellular carcinoma per CT of the abdomen 3. 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 Plan: Clinically stable, continue present care, dc abx in am, GI/oncology rec-s Consultation Date/Type/Reason Admit Date/Time Sep 06, 2018 at 15:57 Initial Consult Date 09/09/18 Type of Consult id Requesting Provider: ROSITA SAUCEDO MD Date/Time of Note DATE: 09/13/18 TIME: 14:15 Exam/Review of Systems Exam Vitals Vital Signs Date Temp Pulse Resp B/P (MAP) Pulse Ox O2 O2 Flow FiO2 Time Delivery Rate 09/13/18 99.0 87 16 111/65 94 Nasal 08:00 (80) Cannula 09/11/18 3.0 21:08 Intake and Output 09/12/18 09/12/18 09/13/18 1515:00 23:00 07:00 IntakeIntake Total 250 ml 1200 ml 880 ml OutputOutput Total 800 ml 725 ml BalanceBalance 250 ml 400 ml 155 ml Results Result Diagram: 09/12/18 0441 09/12/18 0441 Medications Medication Current Medications Dextrose/Sodium Chloride 1,000 ml @ 50 mls/hr Q20H IV Last administered on 09/12/18at 21:49; Admin Dose 50 MLS/HR; Start 09/06/18 at 17:00 Pantoprazole (Protonix Tab) 40 mg DAILY@06 PO Last administered on 09/13/18at 06:01; Admin Dose 40 MG; Start 09/07/18 at 06:00 Acetaminophen (Tylenol Tab) 650 mg Q6H PRN PO MILD PAIN(1-3)OR ELEVATED TEMP Last administered on 09/08/18at 16:32; Admin Dose 650 MG; Start 09/06/18 at 17:00 Ondansetron HCl (Zofran Inj) 4 mg Q6H PRN IV NAUSEA AND/OR VOMITING Last administered on 09/06/18 21:57; Admin Dose 4 MG; Start 09/06/18 at 17:00 Linezolid (Zyvox) 600 mg BID PO Last administered on 09/13/18 08:43; Admin Dose 600 MG; Start 09/07/18 at 21:00 Trazodone HCl (Desyrel) 25 mg HS PO Last administered on 09/12/18at 21:36; Admin Dose 25 MG; Start 09/08/18 at 21:00 Morphine Sulfate (morphine) 4 mg Q3H PRN IV SEVERE PAIN LEVEL 7-10 Last administered on 09/13/18 12:19; Admin Dose 4 MG; Start 09/09/18 at 18:00 Lactulose (Enulose) 30 gm DAILY PRN PO CONSTIPATION; Start 09/12/18 at 19:00 Phenol (Cepastat Lozenge) 1 lozenge Q1H PRN MT sore throat; Start 09/12/18 at 19:00 ANASTACIA POWER NP September 13, 2018 14:16
[2018-09-13] MEDS: DEXTROSE 5%-0.45% NACL 1,000 ML IV SCH (18:42)
[2018-09-13 20:20] VITALS: BP 132/71; PULSE 84; RESP 18
[2018-09-13] MEDS: traZODone 50 MG TAB PO SCH (21:11)
[2018-09-14 02:15] VITALS: BP 117/59; PULSE 85; RESP 18
[2018-09-14] MEDS: PANTOPRAZOLE (EC) 40 MG TAB PO SCH (06:22)
[2018-09-14 07:45] VITALS: BP 111/58; PULSE 83; RESP 18
--- NOTE | 2018-09-14 11:26 | CONS ---
Consultation Date/Type/Reason Admit Date/Time Sep 06, 2018 at 15:57 Initial Consult Date 09/09/18 Type of Consult SUBJECTIVE: Patient is awake, alert, afebrile. No acute events over night. VS: stable T: 98.0 LABS: Reviewed. Urine culture on admission grew enterococcus species and Eve albicans. Antimicrobials: S/P Zyvox indwelling: Canas Physical examination: GEN: Well-developed wasted elderly woman in no distress. HENT: Head atraumatic normocephalic; sclera nonicteric vehicle mucosa dry; neck is supple PULM: chest rise symmetrical, breath sounds diminished to bases. Heart: S1-S2. Abdomen soft bowel sounds present. Extremities without cyanosis. Assessment: 1. Recurrent UTI 2. Hepatocellular carcinoma per CT of the abdomen 3. 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 Pt is finished with antbx treatment and we will monitor off of antbx. GI/oncology rec-s Requesting Provider: ROSITA SAUCEDO MD Date/Time of Note DATE: 09/14/18 TIME: 11:23 Exam/Review of Systems Exam Vitals Vital Signs Date Temp Pulse Resp B/P (MAP) Pulse Ox O2 O2 Flow FiO2 Time Delivery Rate 09/14/18 98.0 83 18 111/58 100 07:45 (75) 09/13/18 Nasal 14:00 Cannula 09/11/18 3.0 21:08 Intake and Output 09/13/18 09/13/18 09/14/18 1414:59 22:59 06:59 IntakeIntake Total 120 ml 1000 ml 550 ml OutputOutput Total 100 ml 300 ml BalanceBalance 20 ml 700 ml 550 ml Results Result Diagram: 09/12/18 0441 09/12/18 0441 Medications Medication Current Medications Dextrose/Sodium Chloride 1,000 ml @ 50 mls/hr Q20H IV Last administered on 09/13/18at 18:42; Admin Dose 50 MLS/HR; Start 09/06/18 at 17:00 Pantoprazole (Protonix Tab) 40 mg DAILY@06 PO Last administered on 09/14/18at 06:22; Admin Dose 40 MG; Start 09/07/18 at 06:00 Acetaminophen (Tylenol Tab) 650 mg Q6H PRN PO MILD PAIN(1-3)OR ELEVATED TEMP Last administered on 09/08/18 16:32; Admin Dose 650 MG; Start 09/06/18 at 17:00 Ondansetron HCl (Zofran Inj) 4 mg Q6H PRN IV NAUSEA AND/OR VOMITING Last administered on 09/06/18 21:57; Admin Dose 4 MG; Start 09/06/18 at 17:00 Trazodone HCl (Desyrel) 25 mg HS PO Last administered on 09/13/18 21:11; Admin Dose 25 MG; Start 09/08/18 at 21:00 Morphine Sulfate (morphine) 4 mg Q3H PRN IV SEVERE PAIN LEVEL 7-10 Last administered on 09/13/18 12:19; Admin Dose 4 MG; Start 09/09/18 at 18:00 Lactulose (Enulose) 30 gm DAILY PRN PO CONSTIPATION; Start 09/12/18 at 19:00 Phenol (Cepastat Lozenge) 1 lozenge Q1H PRN MT sore throat; Start 09/12/18 at 19:00 MARYELLEN DUBON September 14, 2018 11:25
[2018-09-14] MEDS: morphine 4 MG/ML VIAL IV PRN ×2 (12:24→18:01)
--- NOTE | 2018-09-14 13:24 | PN ---
Date/Time of Note Date/Time of Note DATE: 09/14/18 TIME: 13:24 Assessment/Plan VTE Prophylaxis Risk score (from Ns)>0 risk: 9 SCD applied (from Nsg): Yes Pharmacological prophylaxis: LMWH Lines/Catheters IV Catheter Type (from Nrsg): Peripheral IV Urinary Cath still in place: Yes Reason Cath still needed: skin wounds contaminated by urine Assessment/Plan Hospital Course -Pyelonephritis - ID consult- - pain control -Leukopenia - monitor CBC Hepatocellular Carcinoma - per oncology - Elevated AFP - hEM /ONC follows -Hydronephrosis - urology consult- dr colin notified - pain control CHF HTN GERD- PPI Result Diagram: 09/12/1844009/12/181 Results 24hrs Laboratory Tests Test 09/14/18 10:29 Hepatitis C Antibody REACTIVE H Subjective 24 Hr Interval Summary Free Text/Dictation Patient denies any pain Exam/Review of Systems Exam Vitals Vital Signs Date Temp Pulse Resp B/P (MAP) Pulse Ox O2 O2 Flow FiO2 Time Delivery Rate 09/14/18 98.0 83 18 111/58 100 07:45 (75) 09/13/18 Nasal 14:00 Cannula 09/11/18 3.0 21:08 Intake and Output 09/13/18 09/13/18 09/14/18 1515:00 23:00 07:00 IntakeIntake Total 120 ml 1000 ml 550 ml OutputOutput Total 100 ml 300 ml BalanceBalance 20 ml 700 ml 550 ml Constitutional: well developed Head: normocephalic, atraumatic Neck: supple Respiratory: clear to auscultation Cardiovascular: regular rate and rhythm Gastrointestinal: soft, non-tender Extremities: normal pulses Results Results 24hrs Laboratory Tests Test 09/14/18 10:29 Hepatitis C Antibody REACTIVE H Medications Medication Current Medications Dextrose/Sodium Chloride 1,000 ml @ 50 mls/hr Q20H IV Last administered on 09/13/18at 18:42; Admin Dose 50 MLS/HR; Start 09/06/18 at 17:00 Pantoprazole (Protonix Tab) 40 mg DAILY@06 PO Last administered on 09/14/18at 06:22; Admin Dose 40 MG; Start 09/07/18 at 06:00 Acetaminophen (Tylenol Tab) 650 mg Q6H PRN PO MILD PAIN(1-3)OR ELEVATED TEMP Last administered on 09/08/18 16:32; Admin Dose 650 MG; Start 09/06/18 at 17:00 Ondansetron HCl (Zofran Inj) 4 mg Q6H PRN IV NAUSEA AND/OR VOMITING Last administered on 09/06/18 21:57; Admin Dose 4 MG; Start 09/06/18 at 17:00 Trazodone HCl (Desyrel) 25 mg HS PO Last administered on 09/13/18 21:11; Admin Dose 25 MG; Start 09/08/18 at 21:00 Morphine Sulfate (morphine) 4 mg Q3H PRN IV SEVERE PAIN LEVEL 7-10 Last administered on 09/14/18 12:24; Admin Dose 4 MG; Start 09/09/18 at 18:00 Lactulose (Enulose) 30 gm DAILY PRN PO CONSTIPATION; Start 09/12/18 at 19:00 Phenol (Cepastat Lozenge) 1 lozenge Q1H PRN MT sore throat; Start 09/12/18 at 19:00 GOPI DAY September 14, 2018 13:24
[2018-09-14 14:00] VITALS: BP 138/71; PULSE 87; RESP 17
[2018-09-14] MEDS: DEXTROSE 5%-0.45% NACL 1,000 ML IV SCH (15:47)
--- NOTE | 2018-09-14 16:29 | CONS ---
Assessment/Plan Assessment/Plan Assessment/Plan (Daily) #Elevated AFP #Hep C cirrhosis #Biliary obstruction #Pyelonephritis #Leukopenia - 2/2 Cirrhosis #CHF --continue management per PMD #HTN -continue management per PMD -Triple phase CT did demonstrate a 2.7 cm arterial enhancing observation with corresponding washout and delayed capsular enhancement represents hepatocellular carcinoma, LI-RADS 5. -pt needs referral to hepatobiliary surgeon as an out patient. this can likely be resected -patient's blood counts are low 2/2 to her Hep C cirrhosis but I do not think she need blood transfusion or growth factor at this time -s/p ERCP to relieve biliary obstruction. will follow up brushings Family at bed side- all Qs answered; patient seen in collaboration with Dr Alcocer Consultation Date/Type/Reason Admit Date/Time Sep 06, 2018 at 15:57 Initial Consult Date 09/09/18 Type of Consult oncology Reason for Consultation HEPATOCELLULAR CARCINOMA Requesting Provider: ROSITA SAUCEDO MD Date/Time of Note DATE: 09/14/18 TIME: 16:28 Detailed Summary Eyes: no complaints ENT: no complaints Respiratory: no complaints Cardiovascular: no complaints Gastrointestinal: pain Genitourinary: no complaints Musculoskeletal: other (generelized weakaness) Skin: no complaints Neurologic: no complaints Endocrine: no complaints Psychological: nl mood/affect Immunologic: no complaints Exam/Review of Systems Exam Vitals Vital Signs Date Temp Pulse Resp B/P (MAP) Pulse Ox O2 O2 Flow FiO2 Time Delivery Rate 09/14/18 97.9 87 17 138/71 94 Room Air 14:00 (93) 09/11/18 3.0 21:08 Intake and Output 09/13/18 09/13/18 09/14/18 1414:59 22:59 06:59 IntakeIntake Total 120 ml 1000 ml 550 ml OutputOutput Total 100 ml 300 ml BalanceBalance 20 ml 700 ml 550 ml Constitutional: alert, well developed Psych: nl mood/affect Head: atraumatic Eyes: nl lids, nl sclera ENMT: nl external ears & nose Neck: non-tender Respiratory: clear to auscultation Cardiovascular: nl pulses, other (s1s2) Gastrointestinal: soft, tender (positive RUQ tenderness ) Musculoskeletal: nl extremities to inspection Extremities: normal pulses Neurological: nl speech, other (alert/responsive) Results Result Diagram: 09/12/18 0441 09/12/18 0441 Results 24hrs Laboratory Tests Test 09/14/18 10:29 Hepatitis C Antibody REACTIVE H Medications Medication Current Medications Dextrose/Sodium Chloride 1,000 ml @ 50 mls/hr Q20H IV Last administered on 09/14/18 15:47; Admin Dose 50 MLS/HR; Start 09/06/18 at 17:00 Pantoprazole (Protonix Tab) 40 mg DAILY@06 PO Last administered on 09/14/18 06:22; Admin Dose 40 MG; Start 09/07/18 at 06:00 Acetaminophen (Tylenol Tab) 650 mg Q6H PRN PO MILD PAIN(1-3)OR ELEVATED TEMP Last administered on 09/08/18 16:32; Admin Dose 650 MG; Start 09/06/18 at 17:00 Ondansetron HCl (Zofran Inj) 4 mg Q6H PRN IV NAUSEA AND/OR VOMITING Last administered on 09/06/18 21:57; Admin Dose 4 MG; Start 09/06/18 at 17:00 Trazodone HCl (Desyrel) 25 mg HS PO Last administered on 09/13/18 21:11; Admin Dose 25 MG; Start 09/08/18 at 21:00 Morphine Sulfate (morphine) 4 mg Q3H PRN IV SEVERE PAIN LEVEL 7-10 Last administered on 09/14/18 12:24; Admin Dose 4 MG; Start 09/09/18 at 18:00 Lactulose (Enulose) 30 gm DAILY PRN PO CONSTIPATION; Start 09/12/18 at 19:00 Phenol (Cepastat Lozenge) 1 lozenge Q1H PRN MT sore throat; Start 09/12/18 at 19:00 ABRAHAM DOYLE September 14, 2018 16:29
[2018-09-14 20:00] VITALS: BP 124/65; PULSE 89; RESP 18
[2018-09-14] MEDS: traZODone 50 MG TAB PO SCH (21:05)
[2018-09-15 02:00] VITALS: BP 127/62; PULSE 95; RESP 17
[2018-09-15] MEDS: PANTOPRAZOLE (EC) 40 MG TAB PO SCH (06:08)
[2018-09-15 08:13] VITALS: BP 119/60; PULSE 60; RESP 17
[2018-09-15] MEDS: morphine 4 MG/ML VIAL IV PRN ×2 (10:21→16:42)
--- NOTE | 2018-09-15 12:03 | CONS ---
Consultation Date/Type/Reason Admit Date/Time Sep 06, 2018 at 15:57 Initial Consult Date 09/09/18 Type of Consult SUBJECTIVE: Patient is awake, alert, afebrile. No acute events over night. VS: stable T: 97.6 LABS: Reviewed. Urine culture on admission grew enterococcus species and Eve albicans. Antimicrobials: S/P Zyvox indwelling: Canas Physical examination: GEN: Well-developed wasted elderly woman in no distress. HENT: Head atraumatic normocephalic; sclera nonicteric vehicle mucosa dry; neck is supple PULM: chest rise symmetrical, breath sounds diminished to bases. Heart: S1-S2. Abdomen soft bowel sounds present. Extremities without cyanosis. Assessment: 1. Recurrent UTI 2. Hepatocellular carcinoma per CT of the abdomen 3. 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 Pt is finished with antbx treatment and we will monitor off of antbx. GI/oncology rec-s Requesting Provider: ORSITA SAUCEDO MD Date/Time of Note DATE: 09/15/18 TIME: 12:02 Exam/Review of Systems Exam Vitals Vital Signs Date Temp Pulse Resp B/P (MAP) Pulse Ox O2 O2 Flow FiO2 Time Delivery Rate 09/15/18 97.6 60 17 119/60 96 Room Air 08:13 (79) 09/11/18 3.0 21:08 Intake and Output 09/14/18 09/14/18 09/15/18 1414:59 22:59 06:59 IntakeIntake Total 740 ml 950 ml 600 ml OutputOutput Total 727 ml 1000 ml 400 ml BalanceBalance 13 ml -50 ml 200 ml Results Result Diagram: 09/12/18 0441 09/12/18 0441 Medications Medication Current Medications Dextrose/Sodium Chloride 1,000 ml @ 50 mls/hr Q20H IV Last administered on 09/14/18at 15:47; Admin Dose 50 MLS/HR; Start 09/06/18 at 17:00 Pantoprazole (Protonix Tab) 40 mg DAILY@06 PO Last administered on 09/15/18at 06:08; Admin Dose 40 MG; Start 09/07/18 at 06:00 Acetaminophen (Tylenol Tab) 650 mg Q6H PRN PO MILD PAIN(1-3)OR ELEVATED TEMP Last administered on 09/08/18 16:32; Admin Dose 650 MG; Start 09/06/18 at 17:00 Ondansetron HCl (Zofran Inj) 4 mg Q6H PRN IV NAUSEA AND/OR VOMITING Last administered on 09/06/18 21:57; Admin Dose 4 MG; Start 09/06/18 at 17:00 Trazodone HCl (Desyrel) 25 mg HS PO Last administered on 09/14/18 21:05; Admin Dose 25 MG; Start 09/08/18 at 21:00 Morphine Sulfate (morphine) 4 mg Q3H PRN IV SEVERE PAIN LEVEL 7-10 Last administered on 09/15/18 10:21; Admin Dose 4 MG; Start 09/09/18 at 18:00 Lactulose (Enulose) 30 gm DAILY PRN PO CONSTIPATION; Start 09/12/18 at 19:00 Phenol (Cepastat Lozenge) 1 lozenge Q1H PRN MT sore throat; Start 09/12/18 at 19:00 MARYELLEN DUBON September 15, 2018 12:03
[2018-09-15] MEDS: DEXTROSE 5%-0.45% NACL 1,000 ML IV SCH (13:06)
--- NOTE | 2018-09-15 13:33 | PN ---
Date/Time of Note Date/Time of Note DATE: 09/15/18 TIME: 13:32 Assessment/Plan VTE Prophylaxis Risk score (from Ns)>0 risk: 8 SCD applied (from Ns): Yes Pharmacological prophylaxis: LMWH Lines/Catheters IV Catheter Type (from Nrsg): Peripheral IV Urinary Cath still in place: Yes Reason Cath still needed: skin wounds contaminated by urine Assessment/Plan Hospital Course -Pyelonephritis - ID consult- - pain control -Leukopenia - monitor CBC Hepatocellular Carcinoma - per oncology - Elevated AFP - hEM /ONC follows -Hydronephrosis - urology consult- dr colin notified - pain control CHF HTN GERD- PPI Result Diagram: 09/12/1844009/12/18440 Subjective 24 Hr Interval Summary Free Text/Dictation Patient is not verbally responsive possibly because of language barrier but she appears comfortable Exam/Review of Systems Exam Vitals Vital Signs Date Temp Pulse Resp B/P (MAP) Pulse Ox O2 O2 Flow FiO2 Time Delivery Rate 09/15/18 97.6 60 17 119/60 96 Room Air 08:13 (79) 09/11/18 3.0 21:08 Intake and Output 09/14/18 09/14/18 09/15/18 1515:00 23:00 07:00 IntakeIntake Total 740 ml 950 ml 600 ml OutputOutput Total 727 ml 1000 ml 400 ml BalanceBalance 13 ml -50 ml 200 ml Constitutional: well developed Head: normocephalic, atraumatic Neck: supple Respiratory: clear to auscultation Cardiovascular: regular rate and rhythm Gastrointestinal: soft, non-tender Extremities: normal pulses Medications Medication Current Medications Dextrose/Sodium Chloride 1,000 ml @ 50 mls/hr Q20H IV Last administered on 09/15/18at 13:06; Admin Dose 50 MLS/HR; Start 09/06/18 at 17:00 Pantoprazole (Protonix Tab) 40 mg DAILY@06 PO Last administered on 09/15/18at 06:08; Admin Dose 40 MG; Start 09/07/18 at 06:00 Acetaminophen (Tylenol Tab) 650 mg Q6H PRN PO MILD PAIN(1-3)OR ELEVATED TEMP Last administered on 09/08/18at 16:32; Admin Dose 650 MG; Start 09/06/18 at 17:00 Ondansetron HCl (Zofran Inj) 4 mg Q6H PRN IV NAUSEA AND/OR VOMITING Last administered on 09/06/18at 21:57; Admin Dose 4 MG; Start 09/06/18 at 17:00 Trazodone HCl (Desyrel) 25 mg HS PO Last administered on 09/14/18 21:05; Admin Dose 25 MG; Start 09/08/18 at 21:00 Morphine Sulfate (morphine) 4 mg Q3H PRN IV SEVERE PAIN LEVEL 7-10 Last administered on 09/15/18at 10:21; Admin Dose 4 MG; Start 09/09/18 at 18:00 Lactulose (Enulose) 30 gm DAILY PRN PO CONSTIPATION; Start 09/12/18 at 19:00 Phenol (Cepastat Lozenge) 1 lozenge Q1H PRN MT sore throat; Start 09/12/18 at 19:00 GOPI DAY September 15, 2018 13:33
[2018-09-15 14:30] VITALS: BP 132/68; PULSE 85; RESP 17
--- NOTE | 2018-09-15 14:58 | CONS ---
Assessment/Plan Assessment/Plan Assessment/Plan (Daily) #Elevated AFP #Hep C cirrhosis #Biliary obstruction #Pyelonephritis #Leukopenia - 2/2 Cirrhosis #CHF --continue management per PMD #HTN -continue management per PMD -Triple phase CT did demonstrate a 2.7 cm arterial enhancing observation with corresponding washout and delayed capsular enhancement represents hepatocellular carcinoma, LI-RADS 5. -pt needs referral to hepatobiliary surgeon as an out patient. this can likely be resected -patient's blood counts are low 2/2 to her Hep C cirrhosis but I do not think she need blood transfusion or growth factor at this time -s/p ERCP to relieve biliary obstruction. will follow up brushings Family at bed side- all Qs answered; patient seen in collaboration with Dr Alcocer Consultation Date/Type/Reason Admit Date/Time Sep 06, 2018 at 15:57 Initial Consult Date 09/09/18 Type of Consult ONCOLOGY Reason for Consultation HEPATOCELLULAR CARCINOMA Requesting Provider: ROSITA SAUCEDO MD Date/Time of Note DATE: 09/15/18 TIME: 14:55 24 HR Interval Summary Free Text/Dictation sitting up in chair c/o abdominal pain- got pain shot no new events reported last night family at bed side- all Qs answered Detailed Summary Eyes: no complaints ENT: no complaints Respiratory: no complaints Cardiovascular: no complaints Gastrointestinal: pain Genitourinary: no complaints Musculoskeletal: no complaints Skin: no complaints Neurologic: no complaints Endocrine: no complaints Lymphatic: no complaints Psychological: nl mood/affect Immunologic: no complaints Exam/Review of Systems Exam Vitals Vital Signs Date Temp Pulse Resp B/P (MAP) Pulse Ox O2 O2 Flow FiO2 Time Delivery Rate 09/15/18 98.6 85 17 132/68 93 Room Air 14:30 (89) 09/11/18 3.0 21:08 Intake and Output 09/14/18 09/14/18 09/15/18 1515:00 23:00 07:00 IntakeIntake Total 740 ml 950 ml 600 ml OutputOutput Total 727 ml 1000 ml 400 ml BalanceBalance 13 ml -50 ml 200 ml Constitutional: alert, well developed Psych: nl mood/affect Head: atraumatic Eyes: nl lids, nl sclera ENMT: nl external ears & nose Neck: non-tender Respiratory: clear to auscultation Cardiovascular: nl pulses, other Gastrointestinal: soft, tender (RUQ tenderness noted) Musculoskeletal: nl extremities to inspection Neurological: nl speech Skin: nl turgor Results Result Diagram: 09/12/1844009/12/18440 Medications Medication Current Medications Dextrose/Sodium Chloride 1,000 ml @ 50 mls/hr Q20H IV Last administered on 09/15/18 13:06; Admin Dose 50 MLS/HR; Start 09/06/18 at 17:00 Pantoprazole (Protonix Tab) 40 mg DAILY@06 PO Last administered on 09/15/18 06:08; Admin Dose 40 MG; Start 09/07/18 at 06:00 Acetaminophen (Tylenol Tab) 650 mg Q6H PRN PO MILD PAIN(1-3)OR ELEVATED TEMP Last administered on 09/08/18 16:32; Admin Dose 650 MG; Start 09/06/18 at 17:00 Ondansetron HCl (Zofran Inj) 4 mg Q6H PRN IV NAUSEA AND/OR VOMITING Last administered on 09/06/18 21:57; Admin Dose 4 MG; Start 09/06/18 at 17:00 Trazodone HCl (Desyrel) 25 mg HS PO Last administered on 09/14/18 21:05; Admin Dose 25 MG; Start 09/08/18 at 21:00 Morphine Sulfate (morphine) 4 mg Q3H PRN IV SEVERE PAIN LEVEL 7-10 Last administered on 09/15/18 10:21; Admin Dose 4 MG; Start 09/09/18 at 18:00 Lactulose (Enulose) 30 gm DAILY PRN PO CONSTIPATION; Start 09/12/18 at 19:00 Phenol (Cepastat Lozenge) 1 lozenge Q1H PRN MT sore throat; Start 09/12/18 at 19:00 ABRAHAM DOYLE September 15, 2018 14:58
--- NOTE | 2018-09-15 15:33 | CONS ---
DATE OF ADMISSION: 09/06/2018 DATE OF CONSULTATION: 09/15/2018 HISTORY OF PRESENT ILLNESS: The summary so far is that she has a small hepatocellular carcinoma with elevated alpha fetoprotein. Biopsy not done. She has got chronic cholecystitis. MRCP showed evide nce of thickening of the gallbladder and dilated common bile duct. ERCP was done. The brushings wer e done from the bile duct. Brushings came back as benign CBD cells. I discussed with Dr. Burr and we made plans to transfer to [facility] where a hepatoma can be r esected as per the instructions from the oncologist. At the same time, cholecystectomy can be perfor med, but now patient is having a urology evaluation. Once the urology the patient probably shahid l be transferred to [facility]. PHYSICAL EXAMINATION: GENERAL: The patient at this time is alert. VITAL SIGNS: Temperature 97.6, blood pressure 119/68, pulse is 60. ABDOMEN: Unremarkable. PLAN: Wait for the urology clearance. Dictated By: YO ROACH MD NC/NTS Conf#: [id number] DID#: [id number] CC: ROSITA BURR MD;*EndCC*
[2018-09-15 20:00] VITALS: BP 144/74; PULSE 92; RESP 19
[2018-09-15] MEDS: traZODone 50 MG TAB PO SCH (20:40)
[2018-09-16 02:00] VITALS: BP 114/60; PULSE 70; RESP 18
[2018-09-16] MEDS: PANTOPRAZOLE (EC) 40 MG TAB PO SCH (06:10)
[2018-09-16 07:53] VITALS: BP 123/67; PULSE 89; RESP 17
[2018-09-16] MEDS: DEXTROSE 5%-0.45% NACL 1,000 ML IV SCH (09:47)
[2018-09-16] MEDS: morphine 4 MG/ML VIAL IV PRN (09:47)
--- NOTE | 2018-09-16 10:20 | CONS ---
Assessment/Plan Assessment/Plan Hospital Course (Demo Recall) #Elevated AFP #Hep C cirrhosis #Biliary obstruction #Pyelonephritis #Leukopenia - 2/2 Cirrhosis #CHF #HTN -Triple phase CT did demonstrate a 2.7 cm arterial enhancing observation with corresponding washout and delayed capsular enhancement represents hepatocellular carcinoma, LI-RADS 5. -pt needs referral to hepatobiliary surgeon as an out patient. this can likely be resected -patient's blood counts are low 2/2 to her Hep C cirrhosis but I do not think she need blood transfusion or growth factor at this time -s/p ERCP to relieve biliary obstruction. CBD brushings benign -continue management of CHF and HTN per PMD Thank you for the opportunity to participate in this patients care A total of 40 minutes of face to face time was spent speaking with the patient, of which greater than 50% was spent in counseling and coordination of care and the detailed question and answer session. Consultation Date/Type/Reason Admit Date/Time Sep 06, 2018 at 15:57 Initial Consult Date 09/09/18 Type of Consult oncology Reason for Consultation HCC Requesting Provider: ROSITA SAUCEDO MD Date/Time of Note DATE: 09/16/18 TIME: 10:19 24 HR Interval Summary Free Text/Dictation bile duct brushings returned as normal Exam/Review of Systems Exam Vitals Vital Signs Date Temp Pulse Resp B/P (MAP) Pulse Ox O2 O2 Flow FiO2 Time Delivery Rate 09/16/18 98.0 89 17 123/67 93 Room Air 07:53 (85) Intake and Output 09/15/18 09/15/18 09/16/18 1515:00 23:00 07:00 IntakeIntake Total 800 ml 575 ml 575 ml OutputOutput Total 650 ml BalanceBalance 800 ml -75 ml 575 ml Constitutional: frail Psych: confusion Head: normocephalic Eyes: nl conjunctiva ENMT: nl external ears & nose Neck: supple Respiratory: clear to auscultation Cardiovascular: regular rate and rhythm Gastrointestinal: soft Musculoskeletal: nl extremities to inspection Results Result Diagram: 09/16/18 0441 09/16/18 0441 Results 24hrs Laboratory Tests Test 09/16/18 04:41 White Blood Count 3.6 L Red Blood Count 3.49 L Hemoglobin 9.0 L Hematocrit 29.0 L Mean Corpuscular Volume 83.1 Mean Corpuscular Hemoglobin 25.8 L Mean Corpuscular Hemoglobin Concent 31.0 L Red Cell Distribution Width 17.7 H Platelet Count 65 L Mean Platelet Volume 10.0 Immature Granulocytes % 0.300 Neutrophils % 58.7 Lymphocytes % 29.8 Monocytes % 8.1 Eosinophils % 2.5 Basophils % 0.6 Nucleated Red Blood Cells % 0.0 Immature Granulocytes # 0.010 Neutrophils # 2.1 Lymphocytes # 1.1 Monocytes # 0.3 Eosinophils # 0.1 Basophils # 0.0 Nucleated Red Blood Cells # 0.0 Sodium Level 131 L Potassium Level 4.1 Chloride Level 101 Carbon Dioxide Level 25 Anion Gap 5 Blood Urea Nitrogen 13 Creatinine 0.55 Est Glomerular Filtrat Rate mL/min Glucose Level 99 Calcium Level 8.1 L Medications Medication Current Medications Dextrose/Sodium Chloride 1,000 ml @ 50 mls/hr Q20H IV Last administered on 09/16/18 09:47; Admin Dose 50 MLS/HR; Start 09/06/18 at 17:00 Pantoprazole (Protonix Tab) 40 mg DAILY@06 PO Last administered on 09/16/18 06:10; Admin Dose 40 MG; Start 09/07/18 at 06:00 Acetaminophen (Tylenol Tab) 650 mg Q6H PRN PO MILD PAIN(1-3)OR ELEVATED TEMP Last administered on 09/08/18 16:32; Admin Dose 650 MG; Start 09/06/18 at 17:00 Ondansetron HCl (Zofran Inj) 4 mg Q6H PRN IV NAUSEA AND/OR VOMITING Last administered on 09/06/18 21:57; Admin Dose 4 MG; Start 09/06/18 at 17:00 Trazodone HCl (Desyrel) 25 mg HS PO Last administered on 09/15/18 20:40; Admin Dose 25 MG; Start 09/08/18 at 21:00 Morphine Sulfate (morphine) 4 mg Q3H PRN IV SEVERE PAIN LEVEL 7-10 Last administered on 09/16/18 09:47; Admin Dose 4 MG; Start 09/09/18 at 18:00 Lactulose (Enulose) 30 gm DAILY PRN PO CONSTIPATION; Start 09/12/18 at 19:00 Phenol (Cepastat Lozenge) 1 lozenge Q1H PRN MT sore throat; Start 09/12/18 at 19:00 BUZZ MOLINA M.D. September 16, 2018 10:20
--- NOTE | 2018-09-16 13:22 | CONS ---
Assessment/Plan Assessment/Plan Hospital Course (Demo Recall) Patient is alert looks comfortable no fevers overnight family at bedside WBC today 3.6 no shift no bands BUN 13 creatinine 0.55 Urine culture on admission grew enterococcus species and Eve albicans, treated. Indwelling: Canas Physical examination: Well-developed wasted elderly woman in no distress. Head atraumatic normocephalic sclera nonicteric vehicle mucosa dry neck is supple chest rise symmetrical breath sounds diminished to bases. Heart: S1-S2. Abdomen soft bowel sounds present. Extremities without cyanosis. Assessment: 1. Recurrent UTI==> treated 2. Hepatocellular carcinoma per CT of the abdomen 3. 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 Plan: Clinically stable, off antibiotics, oncology recommendations noted, patient need outpatient referral to hepatobiliary specialist for possible resec tion. Patient is status post ERCP, pathology report revealed no malignancy Consultation Date/Type/Reason Admit Date/Time Sep 06, 2018 at 15:57 Initial Consult Date 09/09/18 Type of Consult id Requesting Provider: ROSITA SAUCEDO MD Date/Time of Note DATE: 09/16/18 TIME: 13:20 Exam/Review of Systems Exam Vitals Vital Signs Date Temp Pulse Resp B/P (MAP) Pulse Ox O2 O2 Flow FiO2 Time Delivery Rate 09/16/18 98.0 89 17 123/67 93 Room Air 07:53 (85) Intake and Output 09/15/18 09/15/18 09/16/18 1515:00 23:00 07:00 IntakeIntake Total 800 ml 575 ml 575 ml OutputOutput Total 650 ml BalanceBalance 800 ml -75 ml 575 ml Results Result Diagram: 09/16/18 0441 09/16/18 0441 Results 24hrs Laboratory Tests Test 09/16/18 04:41 White Blood Count 3.6 L Red Blood Count 3.49 L Hemoglobin 9.0 L Hematocrit 29.0 L Mean Corpuscular Volume 83.1 Mean Corpuscular Hemoglobin 25.8 L Mean Corpuscular Hemoglobin Concent 31.0 L Red Cell Distribution Width 17.7 H Platelet Count 65 L Mean Platelet Volume 10.0 Immature Granulocytes % 0.300 Neutrophils % 58.7 Lymphocytes % 29.8 Monocytes % 8.1 Eosinophils % 2.5 Basophils % 0.6 Nucleated Red Blood Cells % 0.0 Immature Granulocytes # 0.010 Neutrophils # 2.1 Lymphocytes # 1.1 Monocytes # 0.3 Eosinophils # 0.1 Basophils # 0.0 Nucleated Red Blood Cells # 0.0 Sodium Level 131 L Potassium Level 4.1 Chloride Level 101 Carbon Dioxide Level 25 Anion Gap 5 Blood Urea Nitrogen 13 Creatinine 0.55 Est Glomerular Filtrat Rate mL/min Glucose Level 99 Calcium Level 8.1 L Medications Medication Current Medications Dextrose/Sodium Chloride 1,000 ml @ 50 mls/hr Q20H IV Last administered on 09/16/18 09:47; Admin Dose 50 MLS/HR; Start 09/06/18 at 17:00 Pantoprazole (Protonix Tab) 40 mg DAILY@06 PO Last administered on 09/16/18 06:10; Admin Dose 40 MG; Start 09/07/18 at 06:00 Acetaminophen (Tylenol Tab) 650 mg Q6H PRN PO MILD PAIN(1-3)OR ELEVATED TEMP Last administered on 09/08/18 16:32; Admin Dose 650 MG; Start 09/06/18 at 17:00 Ondansetron HCl (Zofran Inj) 4 mg Q6H PRN IV NAUSEA AND/OR VOMITING Last administered on 09/06/18 21:57; Admin Dose 4 MG; Start 09/06/18 at 17:00 Trazodone HCl (Desyrel) 25 mg HS PO Last administered on 09/15/18 20:40; Admin Dose 25 MG; Start 09/08/18 at 21:00 Morphine Sulfate (morphine) 4 mg Q3H PRN IV SEVERE PAIN LEVEL 7-10 Last administered on 09/16/18 09:47; Admin Dose 4 MG; Start 09/09/18 at 18:00 Lactulose (Enulose) 30 gm DAILY PRN PO CONSTIPATION; Start 09/12/18 at 19:00 Phenol (Cepastat Lozenge) 1 lozenge Q1H PRN MT sore throat; Start 09/12/18 at 19:00 ANASTACIA POWER NP September 16, 2018 13:22
[2018-09-16 15:41] VITALS: BP 128/70; PULSE 72; RESP 17
--- NOTE | 2018-09-16 17:37 | PN ---
Date/Time of Note Date/Time of Note DATE: 09/16/18 TIME: 17:36 Assessment/Plan VTE Prophylaxis Risk score (from Ns)>0 risk: 6 SCD applied (from Ns): Yes Pharmacological prophylaxis: NA/contraindicated Pharm contraindication: thrombocytopenia Lines/Catheters [facility] Peripheral IV Urinary Cath still in place: Yes Reason Cath still needed: urinary retention Assessment/Plan Hospital Course Patient is awake alert, able to tolerate regular diet without nausea, remains hemodynamically stable. Assessment/Plan -Hepatocellular carcinoma per CT of the abdomen. Dr. Alcocer is following in oncology consultation. Pending arrangement for transfer to [facility] for hepatobiliary surgery. 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 -Chronic urinary retention, continue Canas catheter -Status post urinary tract infection, completed treatment. Dr. Marcos is following in infection disease consultation. -CHF -Hypertension, is currently normotensive -Right hydronephrosis -Protein calorie malnutrition Further recommendations based on clinical course. Plan of care discussed with Dr. Burr. Result Diagram: 09/16/18 0441 09/16/18 0441 Results 24hrs Laboratory Tests Test 09/16/18 04:41 White Blood Count 3.6 L Red Blood Count 3.49 L Hemoglobin 9.0 L Hematocrit 29.0 L Mean Corpuscular Volume 83.1 Mean Corpuscular Hemoglobin 25.8 L Mean Corpuscular Hemoglobin Concent 31.0 L Red Cell Distribution Width 17.7 H Platelet Count 65 L Mean Platelet Volume 10.0 Immature Granulocytes % 0.300 Neutrophils % 58.7 Lymphocytes % 29.8 Monocytes % 8.1 Eosinophils % 2.5 Basophils % 0.6 Nucleated Red Blood Cells % 0.0 Immature Granulocytes # 0.010 Neutrophils # 2.1 Lymphocytes # 1.1 Monocytes # 0.3 Eosinophils # 0.1 Basophils # 0.0 Nucleated Red Blood Cells # 0.0 Sodium Level 131 L Potassium Level 4.1 Chloride Level 101 Carbon Dioxide Level 25 Anion Gap 5 Blood Urea Nitrogen 13 Creatinine 0.55 Est Glomerular Filtrat Rate mL/min Glucose Level 99 Calcium Level 8.1 L Exam/Review of Systems Exam Vitals Vital Signs Date Temp Pulse Resp B/P (MAP) Pulse Ox O2 O2 Flow FiO2 Time Delivery Rate 09/16/18 99.0 72 17 128/70 94 Room Air 15:41 (89) Intake and Output 09/15/18 09/15/18 09/16/18 1515:00 23:00 07:00 IntakeIntake Total 800 ml 575 ml 575 ml OutputOutput Total 650 ml BalanceBalance 800 ml -75 ml 575 ml Constitutional: alert, oriented Respiratory: clear to auscultation Cardiovascular: nl pulses Gastrointestinal: soft, non-tender Genitourinary - Female: other (Canas) Musculoskeletal: nl extremities to inspection Neurological: nl mental status Results Results 24hrs Laboratory Tests Test 09/16/18 04:41 White Blood Count 3.6 L Red Blood Count 3.49 L Hemoglobin 9.0 L Hematocrit 29.0 L Mean Corpuscular Volume 83.1 Mean Corpuscular Hemoglobin 25.8 L Mean Corpuscular Hemoglobin Concent 31.0 L Red Cell Distribution Width 17.7 H Platelet Count 65 L Mean Platelet Volume 10.0 Immature Granulocytes % 0.300 Neutrophils % 58.7 Lymphocytes % 29.8 Monocytes % 8.1 Eosinophils % 2.5 Basophils % 0.6 Nucleated Red Blood Cells % 0.0 Immature Granulocytes # 0.010 Neutrophils # 2.1 Lymphocytes # 1.1 Monocytes # 0.3 Eosinophils # 0.1 Basophils # 0.0 Nucleated Red Blood Cells # 0.0 Sodium Level 131 L Potassium Level 4.1 Chloride Level 101 Carbon Dioxide Level 25 Anion Gap 5 Blood Urea Nitrogen 13 Creatinine 0.55 Est Glomerular Filtrat Rate mL/min Glucose Level 99 Calcium Level 8.1 L Medications Medication Current Medications Dextrose/Sodium Chloride 1,000 ml @ 50 mls/hr Q20H IV Last administered on 09/16/18at 09:47; Admin Dose 50 MLS/HR; Start 09/06/18 at 17:00 Pantoprazole (Protonix Tab) 40 mg DAILY@06 PO Last administered on 09/16/18at 06:10; Admin Dose 40 MG; Start 09/07/18 at 06:00 Acetaminophen (Tylenol Tab) 650 mg Q6H PRN PO MILD PAIN(1-3)OR ELEVATED TEMP Last administered on 09/08/18at 16:32; Admin Dose 650 MG; Start 09/06/18 at 17:00 Ondansetron HCl (Zofran Inj) 4 mg Q6H PRN IV NAUSEA AND/OR VOMITING Last administered on 09/06/18at 21:57; Admin Dose 4 MG; Start 09/06/18 at 17:00 Trazodone HCl (Desyrel) 25 mg HS PO Last administered on 09/15/18at 20:40; Admin Dose 25 MG; Start 09/08/18 at 21:00 Morphine Sulfate (morphine) 4 mg Q3H PRN IV SEVERE PAIN LEVEL 7-10 Last a dministered on 09/16/18at 09:47; Admin Dose 4 MG; Start 09/09/18 at 18:00 Lactulose (Enulose) 30 gm DAILY PRN PO CONSTIPATION; Start 09/12/18 at 19:00 Phenol (Cepastat Lozenge) 1 lozenge Q1H PRN MT sore throat; Start 09/12/18 at 19:00 CECIL GAXIOLA September 16, 2018 17:37
[2018-09-16] MEDS: traZODone 50 MG TAB PO SCH (20:47)
[2018-09-16 20:53] VITALS: BP 136/65; PULSE 89; RESP 16
[2018-09-17 04:02] VITALS: BP 136/65; PULSE 85; RESP 16
[2018-09-17] MEDS: PANTOPRAZOLE (EC) 40 MG TAB PO SCH (05:55)
[2018-09-17] MEDS: DEXTROSE 5%-0.45% NACL 1,000 ML IV SCH (06:10)
[2018-09-17 09:30] VITALS: BP 129/65; PULSE 87; RESP 16
--- NOTE | 2018-09-17 11:03 | CONS ---
Assessment/Plan Assessment/Plan Hospital Course (Demo Recall) #Elevated AFP #Hep C cirrhosis #Biliary obstruction #R hydronephrosis #Leukopenia - 2/2 Cirrhosis #CHF #HTN -Triple phase CT did demonstrate a 2.7 cm arterial enhancing observation with corresponding washout and delayed capsular enhancement represents hepatocellular carcinoma, LI-RADS 5. -pt needs referral to hepatobiliary surgeon as an out patient. this can likely be resected. [facility] physician has been consulted -patient's blood counts are low 2/2 to her Hep C cirrhosis but I do not think she need blood transfusion or growth factor at this time -s/p ERCP to relieve biliary obstruction. CBD brushings benign -pt has indwelling lomeli for hydronephrosis -continue management of CHF and HTN per PMD Thank you for the opportunity to participate in this patients care A total of 40 minutes of face to face time was spent speaking with the patient, of which greater than 50% was spent in counseling and coordination of care and the detailed question and answer session. Consultation Date/Type/Reason Admit Date/Time Sep 06, 2018 at 15:57 Initial Consult Date 09/09/18 Type of Consult oncology Reason for Consultation liver mass Requesting Provider: ROSITA SAUCEDO MD Date/Time of Note DATE: 09/17/18 TIME: 10:59 24 HR Interval Summary Free Text/Dictation no acute overnight events Exam/Review of Systems Exam Vitals Vital Signs Date Temp Pulse Resp B/P (MAP) Pulse Ox O2 O2 Flow FiO2 Time Delivery Rate 09/17/18 99.6 87 16 129/65 94 09:30 (86) 09/16/18 Room Air 15:41 Intake and Output 09/16/18 09/16/18 09/17/18 1515:00 23:00 07:00 IntakeIntake Total 880 ml 350 ml 480 ml OutputOutput Total 2350 ml 1000 ml BalanceBalance -1470 ml 350 ml -520 ml Constitutional: alert, oriented Psych: no complaints Head: normocephalic Eyes: nl conjunctiva ENMT: nl external ears & nose Neck: supple Respiratory: clear to auscultation Cardiovascular: regular rate and rhythm Gastrointestinal: soft Musculoskeletal: nl extremities to inspection Results Result Diagram: 09/16/18 04409/16/18440 Medications Medication Current Medications Dextrose/Sodium Chloride 1,000 ml @ 50 mls/hr Q20H IV Last administered on 09/17/18 06:10; Admin Dose 50 MLS/HR; Start 09/06/18 at 17:00 Pantoprazole (Protonix Tab) 40 mg DAILY@06 PO Last administered on 09/17/18 05:55; Admin Dose 40 MG; Start 09/07/18 at 06:00 Acetaminophen (Tylenol Tab) 650 mg Q6H PRN PO MILD PAIN(1-3)OR ELEVATED TEMP Last administered on 09/08/18 16:32; Admin Dose 650 MG; Start 09/06/18 at 17:00 Ondansetron HCl (Zofran Inj) 4 mg Q6H PRN IV NAUSEA AND/OR VOMITING Last administered on 09/06/18 21:57; Admin Dose 4 MG; Start 09/06/18 at 17:00 Trazodone HCl (Desyrel) 25 mg HS PO Last administered on 09/16/18 20:47; Admin Dose 25 MG; Start 09/08/18 at 21:00 Morphine Sulfate (morphine) 4 mg Q3H PRN IV SEVERE PAIN LEVEL 7-10 Last administered on 09/16/18 09:47; Admin Dose 4 MG; Start 09/09/18 at 18:00 Lactulose (Enulose) 30 gm DAILY PRN PO CONSTIPATION; Start 09/12/18 at 19:00 Phenol (Cepastat Lozenge) 1 lozenge Q1H PRN MT sore throat; Start 09/12/18 at 19:00 BUZZ MOLINA M.D. September 17, 2018 11:03
--- NOTE | 2018-09-17 12:07 | CONS ---
Assessment/Plan Assessment/Plan Hospital Course (Demo Recall) All noted, no acute events over night, no fevers Urine culture on admission grew enterococcus species and Eve albicans, treated. Indwelling: Canas Physical examination: Well-developed wasted elderly woman in no distress. Head atraumatic normocephalic sclera nonicteric vehicle mucosa dry neck is supple chest rise symmetrical breath sounds diminished to bases. Heart: S1-S2. Abdomen soft bowel sounds present. Extremities without cyanosis. Assessment: 1. S/p recurrent UTI==> treated 2. Hepatocellular carcinoma per CT of the abdomen 3. 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 Plan: Stable off antibiotics, oncology recommendations noted, patient need outpatient referral to hepatobiliary specialist for possible resection. Patient is status post ERCP, pathology report revealed no malignancy Consultation Date/Type/Reason Admit Date/Time Sep 06, 2018 at 15:57 Initial Consult Date 09/09/18 Type of Consult id Requesting Provider: ROSITA SAUCEDO MD Date/Time of Note DATE: 09/17/18 TIME: 12:06 Exam/Review of Systems Exam Vitals Vital Signs Date Temp Pulse Resp B/P (MAP) Pulse Ox O2 O2 Flow FiO2 Time Delivery Rate 09/17/18 99.6 87 16 129/65 94 09:30 (86) 09/16/18 Room Air 15:41 Intake and Output 09/16/18 09/16/18 09/17/18 1515:00 23:00 07:00 IntakeIntake Total 880 ml 350 ml 480 ml OutputOutput Total 2350 ml 1000 ml BalanceBalance -1470 ml 350 ml -520 ml Results Result Diagram: 09/16/18 0441 09/16/18 0441 Medications Medication Current Medications Dextrose/Sodium Chloride 1,000 ml @ 50 mls/hr Q20H IV Last administered on 09/17/18at 06:10; Admin Dose 50 MLS/HR; Start 09/06/18 at 17:00 Pantoprazole (Protonix Tab) 40 mg DAILY@06 PO Last administered on 09/17/18at 05:55; Admin Dose 40 MG; Start 09/07/18 at 06:00 Acetaminophen (Tylenol Tab) 650 mg Q6H PRN PO MILD PAIN(1-3)OR ELEVATED TEMP Last administered on 4/28/19at 16:32; Admin Dose 650 MG; Start 09/06/18 at 17:00 Ondansetron HCl (Zofran Inj) 4 mg Q6H PRN IV NAUSEA AND/OR VOMITING Last administered on 09/06/18 21:57; Admin Dose 4 MG; Start 09/06/18 at 17:00 Trazodone HCl (Desyrel) 25 mg HS PO Last administered on 09/16/18 20:47; Admin Dose 25 MG; Start 09/08/18 at 21:00 Morphine Sulfate (morphine) 4 mg Q3H PRN IV SEVERE PAIN LEVEL 7-10 Last administered on 09/16/18 09:47; Admin Dose 4 MG; Start 09/09/18 at 18:00 Lactulose (Enulose) 30 gm DAILY PRN PO CONSTIPATION; Start 09/12/18 at 19:00 Phenol (Cepastat Lozenge) 1 lozenge Q1H PRN MT sore throat; Start 09/12/18 at 19:00 ANASTACIA POWER NP September 17, 2018 12:07
[2018-09-17 14:14] VITALS: BP 135/68; PULSE 84; RESP 20
--- NOTE | 2018-09-17 15:32 | PN ---
Date/Time of Note Date/Time of Note DATE: 09/17/18 TIME: 15:28 Assessment/Plan VTE Prophylaxis Risk score (from Ns)>0 risk: 6 SCD applied (from Ns): Yes Pharmacological prophylaxis: NA/contraindicated Pharm contraindication: thrombocytopenia Lines/Catheters [facility] Peripheral IV Urinary Cath still in place: Yes Reason Cath still needed: urinary retention Assessment/Plan Hospital Course Patient has poor appetite however poor able to tolerate liquids diet. Discussed with case management Rhiannon, according to insurance is suggesting to patient to be discharged and follow-up in [facility] emergency room for admission to hepatobiliary surgical services. Will obtain physical therapy. Medical records copy to CD is ordered. Assessment/Plan -Hepatocellular carcinoma per CT of the abdomen. Dr. Alcocer is following in oncology consultation. Pending arrangement for transfer to tertiary care center for hepatobiliary surgery. 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 -Chronic urinary retention, continue Canas catheter -Status post urinary tract infection, completed treatment. Dr. Marcos is following in infection disease consultation. -CHF -Hypertension, is currently normotensive -Right hydronephrosis -Protein calorie malnutrition Further recommendations based on clinical course. Plan of care discussed with Dr. Burr. Result Diagram: 09/16/1844009/16/18440 Exam/Review of Systems Exam Vitals Vital Signs Date Temp Pulse Resp B/P (MAP) Pulse Ox O2 O2 Flow FiO2 Time Delivery Rate 09/17/18 98.4 84 20 135/68 96 14:14 (90) 09/16/18 Room Air 15:41 Intake and Output 09/16/18 09/16/18 09/17/18 1515:00 23:00 07:00 IntakeIntake Total 880 ml 350 ml 480 ml OutputOutput Total 2350 ml 1000 ml BalanceBalance -1470 ml 350 ml -520 ml Exam Constitutional: alert, oriented Respiratory: clear to auscultation Cardiovascular: nl pulses Gastrointestinal: soft, non-tender Genitourinary - Female: other (Canas) Musculoskeletal: nl extremities to inspection Neurological: nl mental status Medications Medication Current Medications Dextrose/Sodium Chloride 1,000 ml @ 50 mls/hr Q20H IV Last administered on 09/17/18 06:10; Admin Dose 50 MLS/HR; Start 09/06/18 at 17:00 Pantoprazole (Protonix Tab) 40 mg DAILY@06 PO Last administered on 09/17/18 05:55; Admin Dose 40 MG; Start 09/07/18 at 06:00 Acetaminophen (Tylenol Tab) 650 mg Q6H PRN PO MILD PAIN(1-3)OR ELEVATED TEMP Last administered on 09/08/18 16:32; Admin Dose 650 MG; Start 09/06/18 at 17:00 Ondansetron HCl (Zofran Inj) 4 mg Q6H PRN IV NAUSEA AND/OR VOMITING Last administered on 09/06/18 21:57; Admin Dose 4 MG; Start 09/06/18 at 17:00 Trazodone HCl (Desyrel) 25 mg HS PO Last administered on 09/16/18 20:47; Admin Dose 25 MG; Start 09/08/18 at 21:00 Morphine Sulfate (morphine) 4 mg Q3H PRN IV SEVERE PAIN LEVEL 7-10 Last administered on 09/16/18 09:47; Admin Dose 4 MG; Start 09/09/18 at 18:00 Lactulose (Enulose) 30 gm DAILY PRN PO CONSTIPATION; Start 09/12/18 at 19:00 Phenol (Cepastat Lozenge) 1 lozenge Q1H PRN MT sore throat; Start 09/12/18 at 19:00 CECIL GAXIOLA September 17, 2018 15:32
[2018-09-17 20:00] VITALS: BP 145/71; PULSE 95; RESP 18
[2018-09-17] MEDS: traZODone 50 MG TAB PO SCH (21:09)
[2018-09-18 02:00] VITALS: BP 144/67; PULSE 86; RESP 17
[2018-09-18] MEDS: DEXTROSE 5%-0.45% NACL 1,000 ML IV SCH (03:52)
[2018-09-18] MEDS ORDERED: GUAIFENESIN/DM 5ML CUP PO PRN (04:30)
[2018-09-18] MEDS: PANTOPRAZOLE (EC) 40 MG TAB PO SCH (05:57)
[2018-09-18] MEDS: morphine 4 MG/ML VIAL IV PRN ×2 (06:01→12:21)
--- NOTE | 2018-09-18 06:48 | PN ---
DATE: 09/17/2018 SUBJECTIVE: The patient is currently hospitalized abnormal liver functions, possible urinary tract i nfection. The patient is being followed by infectious disease, Dr. Marcos from the [facility]. From the GI standpoint, she has a localized hepatocellular carcinoma and possible chronic cholecystitis. Plans are being made to transfer to [facility] for surgical resection and probably cholecystectomy. The patient at this time is being followed by Dr. Alcocer from the [facility]. ordered a hepatitis C viral antibody and hepatitis CV RNA titer is 793,000 and international un it is 590 units indicating she still has chronic active hepatitis from hepatitis C. PHYSICAL EXAMINATION: GENERAL: She is alert. VITAL SIGNS: She is afebrile. Blood pressure is 135/68. ABDOMEN: Unremarkable. IMPRESSION: She has 3 issues: 1. Active hepatitis C. 2. Hepatocellular carcinoma with high alpha fetoprotein. Biopsy is not done. 3. She seems to have a chronic cholecystitis as well. However, at this time she is being followed f rom the urologist standpoint. Once patient is stable, the patient will be transferred to [facility] for further management. Dictated By: YO DIAL/NTS Conf#: [id number] DID#: [id number] CC: CLEMENT KRAUS MD; ROSITA SAUCEDO MD;*EndCC*
[2018-09-18 10:23] VITALS: BP 124/64; PULSE 80; RESP 20
--- NOTE | 2018-09-18 14:22 | CONS ---
Assessment/Plan Assessment/Plan Hospital Course (Demo Recall) All noted, no acute events over night, no fevers Urine culture on admission grew enterococcus species and Eve albicans, treated. Indwelling: Canas Physical examination: Well-developed wasted elderly woman in no distress. Head atraumatic normocephalic sclera nonicteric vehicle mucosa dry neck is supple chest rise symmetrical breath sounds diminished to bases. Heart: S1-S2. Abdomen soft bowel sounds present. Extremities without cyanosis. Assessment: 1. S/p recurrent UTI==> treated 2. Hepatocellular carcinoma per CT of the abdomen 3. 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 Plan: Stable off antibiotics, oncology recommendations noted, patient need outpatient referral to hepatobiliary specialist for possible resection. Patient is status post ERCP, pathology report revealed no malignancy Consultation Date/Type/Reason Admit Date/Time Sep 06, 2018 at 15:57 Initial Consult Date 09/09/18 Type of Consult id Requesting Provider: ROSITA SAUCEDO MD Date/Time of Note DATE: 09/18/18 TIME: 14:21 Exam/Review of Systems Exam Vitals Vital Signs Date Temp Pulse Resp B/P (MAP) Pulse Ox O2 O2 Flow FiO2 Time Delivery Rate 09/18/18 98.3 80 20 124/64 95 10:23 (84) 09/16/18 Room Air 15:41 Intake and Output 09/17/18 09/17/18 09/18/18 1515:00 23:00 07:00 IntakeIntake Total 240 ml 590 ml 50 ml OutputOutput Total 800 ml 600 ml 1000 ml BalanceBalance -560 ml -10 ml -950 ml Results Result Diagram: 09/18/18 0627 09/18/18 0627 Results 24hrs Laboratory Tests Test 09/18/18 06:27 09/18/18 11:27 White Blood Count 2.3 #L Red Blood Count 3.29 L Hemoglobin 8.4 L Hematocrit 27.3 L Mean Corpuscular Volume 83.0 Mean Corpuscular Hemoglobin 25.5 L Mean Corpuscular Hemoglobin Concent 30.8 L Red Cell Distribution Width 17.7 H Platelet Count 47 #L Mean Platelet Volume 9.9 Immature Granulocytes % 0.400 Neutrophils % Segmented Neutrophils % (Manual) 55 Band Neutrophils % (Manual) 6 H Lymphocytes % Lymphocytes % (Manual) 28 Monocytes % Monocytes % (Manual) 7 Eosinophils % Eosinophils % (Manual) 1 Basophils % Myelocytes % (Manual) 3 H Nucleated Red Blood Cells % 0.0 Immature Granulocytes # 0.010 Neutrophils # Neutrophils # (Manual) 1.3 L Band Neutrophils # 0.1 Lymphocytes (Manual) 0.6 L Lymphocytes # Monocytes # Monocytes # (Manual) 0.1 L Eosinophils # Basophils # Myelocytes # 0.0 Nucleated Red Blood Cells # Platelet Estimate DECREASED Polychromasia 3+ Hypochromasia 2+ Poikilocytosis 1+ Anisocytosis 1+ Microcytosis 1+ Ovalocytes 1+ Sodium Level 136 Potassium Level 3.7 Chloride Level 106 Carbon Dioxide Level 25 Anion Gap 5 Blood Urea Nitrogen 7 Creatinine 0.52 Est Glomerular Filtrat Rate mL/min Glucose Level 121 Calcium Level 8.0 L Total Bilirubin 1.1 Direct Bilirubin 0.00 Indirect Bilirubin 1.1 Aspartate Amino Transf (AST/SGOT) 64 H Alanine Aminotransferase (ALT/SGPT) 34 Alkaline Phosphatase 181 H B-Type Natriuretic Peptide 116 Total Protein 6.6 Albumin 2.4 L Globulin 4.20 H Albumin/Globulin Ratio 0.57 Triglycerides Level 45 Cholesterol Level < 50 L LDL Cholesterol, Calculated HDL Cholesterol 24 L Cholesterol/HDL Ratio Thyroid Stimulating Hormone (TSH) 2.260 Lab Scanned Report REFERENCE LAB Medications Medication Current Medications Dextrose/Sodium Chloride 1,000 ml @ 50 mls/hr Q20H IV Last administered on 03:52; Admin Dose 50 MLS/HR; Start 09/06/18 at 17:00 Pantoprazole (Protonix Tab) 40 mg DAILY@06 PO Last administered on 09/18/18 05:57; Admin Dose 40 MG; Start 09/07/18 at 06:00 Acetaminophen (Tylenol Tab) 650 mg Q6H PRN PO MILD PAIN(1-3)OR ELEVATED TEMP Last administered on 09/08/18 16:32; Admin Dose 650 MG; Start 09/06/18 at 17:00 Ondansetron HCl (Zofran Inj) 4 mg Q6H PRN IV NAUSEA AND/OR VOMITING Last administered on 09/06/18 21:57; Admin Dose 4 MG; Start 09/06/18 at 17:00 Trazodone HCl (Desyrel) 25 mg HS PO Last administered on 09/17/18 21:09; Admin Dose 25 MG; Start 09/08/18 at 21:00 Morphine Sulfate (morphine) 4 mg Q3H PRN IV SEVERE PAIN LEVEL 7-10 Last administered on 09/18/18at 12:21; Admin Dose 4 MG; Start 09/09/18 at 18:00 Lactulose (Enulose) 30 gm DAILY PRN PO CONSTIPATION; Start 09/12/18 at 19:00 Phenol (Cepastat Lozenge) 1 lozenge Q1H PRN MT sore throat; Start 09/12/18 at 19:00 Guaifenesin/ Dextromethorphan (Robitussin Dm Liquid Cup) 10 ml Q4H PRN PO COUGH Last administered on 09/18/18at 04:22; Admin Dose 10 ML; Start 09/18/18 at 04:30 ANASTACIA POWER NP September 18, 2018 14:22
[2018-09-18 14:29] VITALS: BP 130/68; PULSE 84; RESP 18
--- NOTE | 2018-09-18 14:29 | CONS ---
Assessment/Plan Assessment/Plan Hospital Course (Demo Recall) #Elevated AFP #Hep C cirrhosis #Biliary obstruction #R hydronephrosis #Leukopenia - 2/2 Cirrhosis #CHF #HTN -Triple phase CT did demonstrate a 2.7 cm arterial enhancing observation with corresponding washout and delayed capsular enhancement represents hepatocellular carcinoma, LI-RADS 5. -pt needs referral to hepatobiliary surgeon as an out patient. this can likely be resected. [facility] physician has been consulted -patient's blood counts are low 2/2 to her Hep C cirrhosis but I do not think she need blood transfusion or growth factor at this time -s/p ERCP to relieve biliary obstruction. CBD brushings benign -pt has indwelling lomeli for hydronephrosis -continue management of CHF and HTN per PMD Thank you for the opportunity to participate in this patients care A total of 40 minutes of face to face time was spent speaking with the patient, of which greater than 50% was spent in counseling and coordination of care and the detailed question and answer session. Consultation Date/Type/Reason Admit Date/Time Sep 06, 2018 at 15:57 Initial Consult Date 09/09/18 Type of Consult oncology Reason for Consultation HCC Requesting Provider: ROSITA SAUCEDO MD Date/Time of Note DATE: 09/18/18 TIME: 14:27 24 HR Interval Summary Free Text/Dictation [facility] has not accepted the patient as a transfer Exam/Review of Systems Exam Vitals Vital Signs Date Temp Pulse Resp B/P (MAP) Pulse Ox O2 O2 Flow FiO2 Time Delivery Rate 09/18/18 98.3 80 20 124/64 95 10:23 (84) 09/16/18 Room Air 15:41 Intake and Output 09/17/18 09/17/18 09/18/18 1515:00 23:00 07:00 IntakeIntake Total 240 ml 590 ml 50 ml OutputOutput Total 800 ml 600 ml 1000 ml BalanceBalance -560 ml -10 ml -950 ml Constitutional: alert, distress Psych: confusion, depression Head: normocephalic Eyes: nl conjunctiva ENMT: nl external ears & nose Neck: supple Respiratory: clear to auscultation Cardiovascular: regular rate and rhythm Gastrointestinal: soft Musculoskeletal: nl extremities to inspection Results Result Diagram: 09/18/1862609/18/18626 Results 24hrs Laboratory Tests Test 09/18/18 06:27 5/8/19 11:27 White Blood Count 2.3 #L Red Blood Count 3.29 L Hemoglobin 8.4 L Hematocrit 27.3 L Mean Corpuscular Volume 83.0 Mean Corpuscular Hemoglobin 25.5 L Mean Corpuscular Hemoglobin Concent 30.8 L Red Cell Distribution Width 17.7 H Platelet Count 47 #L Mean Platelet Volume 9.9 Immature Granulocytes % 0.400 Neutrophils % Segmented Neutrophils % (Manual) 55 Band Neutrophils % (Manual) 6 H Lymphocytes % Lymphocytes % (Manual) 28 Monocytes % Monocytes % (Manual) 7 Eosinophils % Eosinophils % (Manual) 1 Basophils % Myelocytes % (Manual) 3 H Nucleated Red Blood Cells % 0.0 Immature Granulocytes # 0.010 Neutrophils # Neutrophils # (Manual) 1.3 L Band Neutrophils # 0.1 Lymphocytes (Manual) 0.6 L Lymphocytes # Monocytes # Monocytes # (Manual) 0.1 L Eosinophils # Basophils # Myelocytes # 0.0 Nucleated Red Blood Cells # Platelet Estimate DECREASED Polychromasia 3+ Hypochromasia 2+ Poikilocytosis 1+ Anisocytosis 1+ Microcytosis 1+ Ovalocytes 1+ Sodium Level 136 Potassium Level 3.7 Chloride Level 106 Carbon Dioxide Level 25 Anion Gap 5 Blood Urea Nitrogen 7 Creatinine 0.52 Est Glomerular Filtrat Rate mL/min Glucose Level 121 Calcium Level 8.0 L Total Bilirubin 1.1 Direct Bilirubin 0.00 Indirect Bilirubin 1.1 Aspartate Amino Transf (AST/SGOT) 64 H Alanine Aminotransferase (ALT/SGPT) 34 Alkaline Phosphatase 181 H B-Type Natriuretic Peptide 116 Total Protein 6.6 Albumin 2.4 L Globulin 4.20 H Albumin/Globulin Ratio 0.57 Triglycerides Level 45 Cholesterol Level < 50 L LDL Cholesterol, Calculated HDL Cholesterol 24 L Cholesterol/HDL Ratio Thyroid Stimulating Hormone (TSH) 2.260 Lab Scanned Report REFERENCE LAB Medications Medication Current Medications Dextrose/Sodium Chloride 1,000 ml @ 50 mls/hr Q20H IV Last administered on 09/18/18at 03:52; Admin Dose 50 MLS/HR; Start 09/06/18 at 17:00 Pantoprazole (Protonix Tab) 40 mg DAILY@06 PO Last administered on 09/18/18at 05:57; Admin Dose 40 MG; Start 09/07/18 at 06:00 Acetaminophen (Tylenol Tab) 650 mg Q6H PRN PO MILD PAIN(1-3)OR ELEVATED TEMP Last administered on 09/08/18 16:32; Admin Dose 650 MG; Start 09/06/18 at 17:00 Ondansetron HCl (Zofran Inj) 4 mg Q6H PRN IV NAUSEA AND/OR VOMITING Last administered on 09/06/18 21:57; Admin Dose 4 MG; Start 09/06/18 at 17:00 Trazodone HCl (Desyrel) 25 mg HS PO Last administered on 09/17/18 21:09; Admin Dose 25 MG; Start 09/08/18 at 21:00 Morphine Sulfate (morphine) 4 mg Q3H PRN IV SEVERE PAIN LEVEL 7-10 Last administered on 09/18/18 12:21; Admin Dose 4 MG; Start 09/09/18 at 18:00 Lactulose (Enulose) 30 gm DAILY PRN PO CONSTIPATION; Start 09/12/18 at 19:00 Phenol (Cepastat Lozenge) 1 lozenge Q1H PRN MT sore throat; Start 09/12/18 at 19:00 Guaifenesin/ Dextromethorphan (Robitussin Dm Liquid Cup) 10 ml Q4H PRN PO COUGH Last administered on 09/18/18 04:22; Admin Dose 10 ML; Start 09/18/18 at 04:30 BUZZ MOLINA M.D. September 18, 2018 14:29
--- NOTE | 2018-09-18 16:42 | RADRPT ---
Echocardiogram Report Patient Name: Gucci MENDENHALL ID: [id number] : 10 (83y 7m)Study Date: 09/18/2018 9:32:06 AM Gender: FAccession #: [id number] Tech: Enrique Abdullahi [facility] Location: [address] Ref.Physician: ABRAHAM DOYLE Height(Cm): BSA: Weight(Kg): Quality: AdequateAccount #: Procedures: Echocardiographic Report: Transthoracic echocardiogram with complete 2D, M-Mode, and doppler examination. Indications: Congestive Heart Failure. Measurements: 2D/M Mode Doppler Measurement Value Normal Range Measurement Value Normal Range LVIDd 2D 3.0 [ 3.8 - 5.2 ] cm AV Peak Erik 1.6 [ 100.0 - 170.0 ] cm/sec LVIDs 2D 1.8 [ 2.2 - 3.5 ] cm AV Peak PG 10.0 [ 2.0 - 9.0 ] mmHg LVPWd 2D 0.9 [ 0.6 - 0.9 ] cm LVOT Peak Erik 1.5 [ 70.0 - 110.0 ] cm/sec IVSd 2D 1.7 [ 0.6 - 0.9 ] cm LVOT Peak PG 9.0 [ 2.0 - 6.0 ] mmHg AoR Diam 2D 2.9 [ 2.3 - 3.1 ] cm MV E Peak Erik 1.0 [ 60.0 - 130.0 ] cm/sec EDV 2D 35.0 [ 46.0 - 106.0 ] ml MV A Peak Erik 1.4 [ 100.0 - 120.0 ] cm/sec ESV 2D 10.1 [ 14.0 - 42.0 ] ml MV E/A 0.7 [ 0.8 - 1.5 ] ratio EF 2D 71.1 [ 54.0 - 74.0 ] percent MV Decel Time 190 [ 104 - 258 ] msec LA Dimen 2D 3.3 [ 2.7 - 3.8 ] cm Lat E` Erik 0.1 [ 10.0 - 15.0 ] cm/sec Lateral E/E` 14.6 [ 1.0 - 2.0 ] ratio MV E/A 0.7 [ 0.8 - 1.5 ] ratio TR Peak Erik 3.2 [ 100.0 - 280.0 ] cm/sec TR Peak PG 40.0 mmHg RVSP 43.0 [ 10.0 - 36.0 ] mmHg Findings: Left Ventricle: Normal left ventricular systolic function. Normal left ventricular cavity size. Sigmoid septum. Ejection fraction is visually estimated at 60 %. Tissue Doppler/Mitral Doppler indices are consistent with impaired relaxation (Stage I diastolic dysfunction). Right Ventricle: Normal right ventricular size. Normal right ventricular systolic function. Left Atrium: The left atrium is normal in size. Right Atrium: The right atrium is normal in size. Mitral Valve: Mild mitral leaflet calcification. Mild mitral annular calcification. Trace mitral regurgitation. Aortic Valve: No hemodynamically significant aortic stenosis by doppler. Aortic cusps appear mildly calcified. Mild to moderate aortic valve regurgitation. Tricuspid Valve: Estimated peak PA systolic pressure 43 mmHg. Tricuspid valve appears mildly thickened. There is mild to moderate tricuspid regurgitation. Pericardium: Normal pericardium with no significant pericardial effusion. Left pleural effusion seen. Aorta: Normal aortic root. IVC: Normal size and normal respiratory collapse consistent with normal right atrial pressure. Conclusions: Normal left ventricular systolic function. Normal left ventricular cavity size. Sigmoid septum. Ejection fraction is visually estimated at 60 %. Tissue Doppler/Mitral Doppler indices are consistent with impaired relaxation (Stage I diastolic dysfunction). Mild mitral leaflet calcification. Mild mitral annular calcification. Trace mitral regurgitation. No hemodynamically significant aortic stenosis by doppler. Aortic cusps appear mildly calcified. Mild to moderate aortic valve regurgitation. Estimated peak PA systolic pressure 43 mmHg. Tricuspid valve appears mildly thickened. There is mild to moderate tricuspid regurgitation. Electronically Signed By: Jarrett Waldron 2018-09-18 16:41:54 PDT
--- NOTE | 2018-09-18 17:06 | PN ---
Date/Time of Note Date/Time of Note DATE: 09/18/18 TIME: 17:03 Assessment/Plan VTE Prophylaxis Risk score (from Ns)>0 risk: 9 SCD applied (from Ns): Yes Pharmacological prophylaxis: NA/contraindicated Pharm contraindication: other Lines/Catheters IV [facility]atheter [facility]from [facility]): Peripheral IV Urinary Cath still in place: Yes Reason Cath still needed: urinary retention Assessment/Plan Hospital Course Patient is hemodynamically stable, tolerates liquid diet. Continue PT Case management to arrange for walker prior to discharge. His condition plan of care discussed with patient and grandson Eduardo. Assessment/Plan -Hepatocellular carcinoma per CT of the abdomen. Dr. Alcocer is following in oncology consultation. Pending arrangement [facility]. 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 -Chronic urinary retention, continue Canas catheter -Status post urinary tract infection, completed treatment. Dr. Marcos is [facility] in infection disease consultation. -CHF -Hypertension, is currently normotensive -Right hydronephrosis -Protein calorie malnutrition Further recommendations based on clinical course. Plan of care discussed with Dr. Burr. Result Diagram: 09/18/18 0627 09/18/18 0627 Results 24hrs Laboratory Tests Test 09/18/18 06:27 09/18/18 11:27 White Blood Count 2.3 #L Red Blood Count 3.29 L Hemoglobin 8.4 L Hematocrit 27.3 L Mean Corpuscular Volume 83.0 Mean Corpuscular Hemoglobin 25.5 L Mean Corpuscular Hemoglobin Concent 30.8 L Red Cell Distribution Width 17.7 H Platelet Count 47 #L Mean Platelet Volume 9.9 Immature Granulocytes % 0.400 Neutrophils % Segmented Neutrophils % (Manual) 55 Band Neutrophils % (Manual) 6 H Lymphocytes % Lymphocytes % (Manual) 28 Monocytes % Monocytes % (Manual) 7 Eosinophils % Eosinophils % (Manual) 1 Basophils % Myelocytes % (Manual) 3 H Nucleated Red Blood Cells % 0.0 Immature Granulocytes # 0.010 Neutrophils # Neutrophils # (Manual) 1.3 L Band Neutrophils # 0.1 Lymphocytes (Manual) 0.6 L Lymphocytes # Monocytes # Monocytes # (Manual) 0.1 L Eosinophils # Basophils # Myelocytes # 0.0 Nucleated Red Blood Cells # Platelet Estimate DECREASED Polychromasia 3+ Hypochromasia 2+ Poikilocytosis 1+ Anisocytosis 1+ Microcytosis 1+ Ovalocytes 1+ Sodium Level 136 Potassium Level 3.7 Chloride Level 106 Carbon Dioxide Level 25 Anion Gap 5 Blood Urea Nitrogen 7 Creatinine 0.52 Est Glomerular Filtrat Rate mL/min Glucose Level 121 Calcium Level 8.0 L Total Bilirubin 1.1 Direct Bilirubin 0.00 Indirect Bilirubin 1.1 Aspartate Amino Transf (AST/SGOT) 64 H Alanine Aminotransferase (ALT/SGPT) 34 Alkaline Phosphatase 181 H B-Type Natriuretic Peptide 116 Total Protein 6.6 Albumin 2.4 L Globulin 4.20 H Albumin/Globulin Ratio 0.57 Triglycerides Level 45 Cholesterol Level < 50 L LDL Cholesterol, Calculated HDL Cholesterol 24 L Cholesterol/HDL Ratio Thyroid Stimulating Hormone (TSH) 2.260 Lab Scanned Report REFERENCE LAB Exam/Review of Systems Exam Vitals Vital Signs Date Temp Pulse Resp B/P (MAP) Pulse Ox O2 O2 Flow FiO2 Time Delivery Rate 09/18/18 98.8 84 18 130/68 93 14:29 (88) 09/16/18 Room Air 15:41 Intake and Output 09/17/18 09/17/18 09/18/18 1515:00 23:00 07:00 IntakeIntake Total 240 ml 590 ml 50 ml OutputOutput Total 800 ml 600 ml 1000 ml BalanceBalance -560 ml -10 ml -950 ml Exam Constitutional: alert, oriented Respiratory: clear to auscultation Cardiovascular: nl pulses Gastrointestinal: soft, non-tender Genitourinary - Female: other (Canas) Musculoskeletal: nl extremities to inspection Neurological: nl mental status Results Results 24hrs Laboratory Tests Test 09/18/18 06:27 09/18/18 11:27 White Blood Count 2.3 #L Red Blood Count 3.29 L Hemoglobin 8.4 L Hematocrit 27.3 L Mean Corpuscular Volume 83.0 Mean Corpuscular Hemoglobin 25.5 L Mean Corpuscular Hemoglobin Concent 30.8 L Red Cell Distribution Width 17.7 H Platelet Count 47 #L Mean Platelet Volume 9.9 Immature Granulocytes % 0.400 Neutrophils % Segmented Neutrophils % (Manual) 55 Band Neutrophils % (Manual) 6 H Lymphocytes % Lymphocytes % (Manual) 28 Monocytes % Monocytes % (Manual) 7 Eosinophils % Eosinophils % (Manual) 1 Basophils % Myelocytes % (Manual) 3 H Nucleated Red Blood Cells % 0.0 Immature Granulocytes # 0.010 Neutrophils # Neutrophils # (Manual) 1.3 L Band Neutrophils # 0.1 Lymphocytes (Manual) 0.6 L Lymphocytes # Monocytes # Monocytes # (Manual) 0.1 L Eosinophils # Basophils # Myelocytes # 0.0 Nucleated Red Blood Cells # Platelet Estimate DECREASED Polychromasia 3+ Hypochromasia 2+ Poikilocytosis 1+ Anisocytosis 1+ Microcytosis 1+ Ovalocytes 1+ Sodium Level 136 Potassium Level 3.7 Chloride Level 106 Carbon Dioxide Level 25 Anion Gap 5 Blood Urea Nitrogen 7 Creatinine 0.52 Est Glomerular Filtrat Rate mL/min Glucose Level 121 Calcium Level 8.0 L Total Bilirubin 1.1 Direct Bilirubin 0.00 Indirect Bilirubin 1.1 Aspartate Amino Transf (AST/SGOT) 64 H Alanine Aminotransferase (ALT/SGPT) 34 Alkaline Phosphatase 181 H B-Type Natriuretic Peptide 116 Total Protein 6.6 Albumin 2.4 L Globulin 4.20 H Albumin/Globulin Ratio 0.57 Triglycerides Level 45 Cholesterol Level < 50 L LDL Cholesterol, Calculated HDL Cholesterol 24 L Cholesterol/HDL Ratio Thyroid Stimulating Hormone (TSH) 2.260 Lab Scanned Report REFERENCE LAB Medications Medication Current Medications Dextrose/Sodium Chloride 1,000 ml @ 50 mls/hr Q20H IV Last administered on 09/18/18 03:52; Admin Dose 50 MLS/HR; Start 09/06/18 at 17:00 Pantoprazole (Protonix Tab) 40 mg DAILY@06 PO Last administered on 09/18/18 05:57; Admin Dose 40 MG; Start 09/07/18 at 06:00 Acetaminophen (Tylenol Tab) 650 mg Q6H PRN PO MILD PAIN(1-3)OR ELEVATED TEMP Last administered on 09/08/18 16:32; Admin Dose 650 MG; Start 09/06/18 at 17:00 Ondansetron HCl (Zofran Inj) 4 mg Q6H PRN IV NAUSEA AND/OR VOMITING Last administered on 09/06/18 21:57; Admin Dose 4 MG; Start 09/06/18 at 17:00 Trazodone HCl (Desyrel) 25 mg HS PO Last administered on 09/17/18 21:09; Admin Dose 25 MG; Start 09/08/18 at 21:00 Morphine Sulfate (morphine) 4 mg Q3H PRN IV SEVERE PAIN LEVEL 7-10 Last administered on 09/18/18 12:21; Admin Dose 4 MG; Start 09/09/18 at 18:00 Lactulose (Enulose) 30 gm DAILY PRN PO CONSTIPATION; Start 09/12/18 at 19:00 Phenol (Cepastat Lozenge) 1 lozenge Q1H PRN MT sore throat; Start 09/12/18 at 19:00 Guaifenesin/ Dextromethorphan (Robitussin Dm Liquid Cup) 10 ml Q4H PRN PO COUGH Last administered on 09/18/18 04:22; Admin Dose 10 ML; Start 09/18/18 at 04:30 CECIL GAIXOLA September 18, 2018 17:06
[2018-09-18 20:00] VITALS: BP 133/75; PULSE 99; RESP 17
[2018-09-18] MEDS: traZODone 50 MG TAB PO SCH (21:48)
[2018-09-19 02:00] VITALS: BP 122/66; PULSE 87; RESP 17
[2018-09-19] MEDS: DEXTROSE 5%-0.45% NACL 1,000 ML IV SCH (03:55)
[2018-09-19] MEDS: PANTOPRAZOLE (EC) 40 MG TAB PO SCH (05:34)
[2018-09-19 08:00] VITALS: BP 129/75; PULSE 87; RESP 18
--- NOTE | 2018-09-19 09:53 | CONS ---
Assessment/Plan Assessment/Plan Hospital Course (Demo Recall) #Elevated AFP #Hep C cirrhosis #Biliary obstruction #R hydronephrosis #Leukopenia - 2/2 Cirrhosis #CHF #HTN -Triple phase CT did demonstrate a 2.7 cm arterial enhancing observation with corresponding washout and delayed capsular enhancement represents hepatocellular carcinoma, LI-RADS 5. -pt needs referral to hepatobiliary surgeon as an out patient. this can likely be resected. [facility] physician has been consulted -patient's blood counts are low 2/2 to her Hep C cirrhosis but I do not think she need blood transfusion or growth factor at this time -s/p ERCP to relieve biliary obstruction. CBD brushings benign -pt has indwelling lomeli for hydronephrosis -continue management of CHF and HTN per PMD Thank you for the opportunity to participate in this patients care A total of 40 minutes of face to face time was spent speaking with the patient, of which greater than 50% was spent in counseling and coordination of care and the detailed question and answer session. Consultation Date/Type/Reason Admit Date/Time Sep 06, 2018 at 15:57 Initial Consult Date 09/09/18 Type of Consult oncology Reason for Consultation HCC Requesting Provider: ROSITA SAUCEDO MD Date/Time of Note DATE: 09/19/18 TIME: 09:50 24 HR Interval Summary Free Text/Dictation no acute overnight events Exam/Review of Systems Exam Vitals Vital Signs Date Temp Pulse Resp B/P (MAP) Pulse Ox O2 O2 Flow FiO2 Time Delivery Rate 09/19/18 98.1 87 18 129/75 95 08:00 (93) 09/16/18 Room Air 15:41 Intake and Output 09/18/18 09/18/18 09/19/18 1515:00 23:00 07:00 IntakeIntake Total 1540 ml 500 ml OutputOutput Total 400 ml 1600 ml 500 ml BalanceBalance -400 ml -60 ml 0 ml Constitutional: alert, oriented Psych: anxiety, depression Head: normocephalic Eyes: nl conjunctiva ENMT: nl external ears & nose Neck: supple Respiratory: clear to auscultation Cardiovascular: regular rate and rhythm Gastrointestinal: soft Musculoskeletal: nl extremities to inspection Results Result Diagram: 09/18/1862609/18/18626 Results 24hrs Laboratory Tests Test 09/18/18 11:27 Lab Scanned Report REFERENCE LAB Medications Medication Current Medications Dextrose/Sodium Chloride 1,000 ml @ 50 mls/hr Q20H IV Last administered on 09/19/18 03:55; Admin Dose 50 MLS/HR; Start 09/06/18 at 17:00 Pantoprazole (Protonix Tab) 40 mg DAILY@06 PO Last administered on 09/19/18 05:34; Admin Dose 40 MG; Start 09/07/18 at 06:00 Acetaminophen (Tylenol Tab) 650 mg Q6H PRN PO MILD PAIN(1-3)OR ELEVATED TEMP Last administered on 09/08/18 16:32; Admin Dose 650 MG; Start 09/06/18 at 17:00 Ondansetron HCl (Zofran Inj) 4 mg Q6H PRN IV NAUSEA AND/OR VOMITING Last administered on 09/06/18 21:57; Admin Dose 4 MG; Start 09/06/18 at 17:00 Trazodone HCl (Desyrel) 25 mg HS PO Last administered on 09/18/18 21:48; Admin Dose 25 MG; Start 09/08/18 at 21:00 Morphine Sulfate (morphine) 4 mg Q3H PRN IV SEVERE PAIN LEVEL 7-10 Last administered on 09/18/18 12:21; Admin Dose 4 MG; Start 09/09/18 at 18:00 Lactulose (Enulose) 30 gm DAILY PRN PO CONSTIPATION; Start 09/12/18 at 19:00 Phenol (Cepastat Lozenge) 1 lozenge Q1H PRN MT sore throat; Start 09/12/18 at 19:00 Guaifenesin/ Dextromethorphan (Robitussin Dm Liquid Cup) 10 ml Q4H PRN PO COUGH Last administered on 09/18/18 04:22; Admin Dose 10 ML; Start 09/18/18 at 04:30 BUZZ MOLINA M.D. September 19, 2018 09:53
--- NOTE | 2018-09-19 11:43 | CONS ---
Assessment/Plan Assessment/Plan Hospital Course (Demo Recall) No acute events over night, no fevers Urine culture on admission grew enterococcus species and Eve albicans, treated. Indwelling: Canas Physical examination: Well-developed wasted elderly woman in no distress. Head atraumatic normocephalic sclera nonicteric vehicle mucosa dry neck is supple chest rise symmetrical breath sounds diminished to bases. Heart: S1-S2. Abdomen soft bowel sounds present. Extremities without cyanosis. Assessment: 1. S/p recurrent UTI==> treated 2. Hepatocellular carcinoma per CT of the abdomen 3. 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 Plan: Remains stable off antibiotics, oncology recommendations noted, patient need outpatient referral to hepatobiliary specialist for possible resection. Patient is status post ERCP, pathology report revealed no malignancy Consultation Date/Type/Reason Admit Date/Time Sep 06, 2018 at 15:57 Initial Consult Date 09/09/18 Type of Consult id Requesting Provider: ROSITA SAUCEDO MD Date/Time of Note DATE: 09/19/18 TIME: 11:42 Exam/Review of Systems Exam Vitals Vital Signs Date Temp Pulse Resp B/P (MAP) Pulse Ox O2 O2 Flow FiO2 Time Delivery Rate 09/19/18 98.1 87 18 129/75 95 08:00 (93) 09/16/18 Room Air 15:41 Intake and Output 09/18/18 09/18/18 09/19/18 1515:00 23:00 07:00 IntakeIntake Total 1540 ml 500 ml OutputOutput Total 400 ml 1600 ml 500 ml BalanceBalance -400 ml -60 ml 0 ml Results Result Diagram: 09/18/18 0627 09/18/18 06 Medications Medication Current Medications Dextrose/Sodium Chloride 1,000 ml @ 50 mls/hr Q20H IV Last administered on 09/19/18at 03:55; Admin Dose 50 MLS/HR; Start 09/06/18 at 17:00 Pantoprazole (Protonix Tab) 40 mg DAILY@06 PO Last administered on 09/19/18at 05:34; Admin Dose 40 MG; Start 09/07/18 at 06:00 Acetaminophen (Tylenol Tab) 650 mg Q6H PRN PO MILD PAIN(1-3)OR ELEVATED TEMP Last administered on 09/08/18at 16:32; Admin Dose 650 MG; Start 09/06/18 at 17:00 Ondansetron HCl (Zofran Inj) 4 mg Q6H PRN IV NAUSEA AND/OR VOMITING Last administered on 09/06/18 21:57; Admin Dose 4 MG; Start 09/06/18 at 17:00 Trazodone HCl (Desyrel) 25 mg HS PO Last administered on 09/18/18 21:48; Admin Dose 25 MG; Start 09/08/18 at 21:00 Morphine Sulfate (morphine) 4 mg Q3H PRN IV SEVERE PAIN LEVEL 7-10 Last admin istered on 09/18/18 12:21; Admin Dose 4 MG; Start 09/09/18 at 18:00 Lactulose (Enulose) 30 gm DAILY PRN PO CONSTIPATION; Start 09/12/18 at 19:00 Phenol (Cepastat Lozenge) 1 lozenge Q1H PRN MT sore throat; Start 09/12/18 at 19:00 Guaifenesin/ Dextromethorphan (Robitussin Dm Liquid Cup) 10 ml Q4H PRN PO COUGH Last administered on 09/18/18 04:22; Admin Dose 10 ML; Start 09/18/18 at 04:30 ANASTACIA POWER NP September 19, 2018 11:42
[2018-09-19 14:00] VITALS: BP 125/74; PULSE 88; RESP 17
--- NOTE | 2018-09-19 17:11 | CONS ---
DATE OF ADMISSION: 09/06/2018 DATE OF CONSULTATION: 09/19/2018 TYPE OF CONSULTATION: Cardiology. REASON FOR CONSULTATION: Assess for congestive heart failure, hypertension. REQUESTING PHYSICIAN: Rosita Saucedo MD HISTORY OF PRESENT ILLNESS: Ms. Ibarra is an 83-year-old female with a history of hypertension who pre sented with flank pain. The patient was initially admitted on 09/06/2018 and diagnosed with recurren t UTI, was started on antibiotics and was additionally noted to have a history of hepatitis C and und erwent a liver ultrasound that had revealed liver cirrhosis with simple cyst in the left lobe of the liver and an abdominal pelvic CT that revealed morphologic changes of cirrhosis and possible findings of hepatocellular carcinoma, has a 2.5 cm arterial enhancement. The patient also had mild splenomeg lenny and portal enlargement of appendix. The patient has thus been consulted by the ID and now hemato logy/oncology services. The patient at this time denies significant shortness of breath or chest yana n. PAST MEDICAL HISTORY: As above in HPI. MEDICATIONS CURRENTLY IN HOSPITAL: 1. Lactulose. 2. Morphine. 3. Trazodone. 4. Protonix 40 mg daily. 5. IV fluid hydration of D5 at 50 mL an hour. 6. Tylenol. 7. Zofran. ALLERGIES: NO KNOWN DRUG ALLERGIES. SOCIAL HISTORY: No current tobacco, EtOH or illicit drug use. FAMILY HISTORY: No history of sudden cardiac or early CAD. REVIEW OF SYSTEMS: As above in HPI. CONSTITUTIONAL: No fevers, chills. PULMONARY: No current signs of respiratory compromise. GASTROINTESTINAL: Positive hepatocellular carcinoma, cirrhosis. GENITOURINARY: No hematuria, dysuria. MUSCULOSKELETAL: Degenerative joint disease. PSYCHIATRIC: Possible psychiatric medications. NEUROLOGIC: No documented history of CVA. ENDOCRINE: No documented history of diabetes mellitus. CARDIOVASCULAR: Congestive heart failure by history. PHYSICAL EXAMINATION: VITAL SIGNS: Temperature 98.1, blood pressure 129/75, pulse 87, respiratory rate 18, satting 95%. GENERAL: The patient is alert, awake, in no acute distress. NECK: JVP approximately is 8 to 9 cm of water. CHEST: Fair movement throughout with mild decreased breath sounds at bases bilaterally. HEART: Regular rate and rhythm. Normal S1, S2, I/ systolic murmur, nondisplaced PMI. ABDOMEN: Positive bowel sounds, soft. EXTREMITIES: No pitting edema, 1+ pulses bilateral posterior tibial. LABORATORIES: Most recently from 09/18/2018: Sodium 136, potassium 3.7, creatinine 0.5. White bloo d cell count 2.3, hemoglobin 8.4, platelet count of 47. Troponin negative x1. Most recent BNP is 11 6. ELECTROCARDIOGRAM: As above in HPI. No further electrocardiograms for my review at this time. IMAGING STUDIES: MRCP revealing a viable sludge in the gallbladder and borderline gallbladder wall t hickening, hepatic cirrhosis, air and fecal filled colon. IMPRESSION: 1. Abnormal electrocardiogram, assess for acute coronary syndrome. 2. History of congestive heart failure with reasonable volume status at this time, but with mildly e levated BNP. 3. History of hypertension, currently normotensive off of antihypertensives possibly due to onset of cirrhosis. 4. Cirrhosis. 5. History of hepatitis C. 6. Probable hepatocellular carcinoma. 7. Thrombocytopenia. 8. Leukopenia and anemia/pancytopenia. RECOMMENDATIONS: 1. At this time, we would continue ongoing evaluation of patient's possible hepatocellular carcinoma . 2. We would check serial EKGs, assess for significant ongoing changes. 3. We will follow the patient's volume status closely on IV fluid hydration D5. 4. Check a fasting lipid panel for general risk stratification and initiate lipid lowering medicatio n as necessary. 5. Check a 2D echo for patient's ejection fraction, wall motion or rule out major valve abnormalitie s. Thank you for allowing me to take part in the care of this patient. I will continue to follow her ve ry closely with you with further recommendations to be made as the patient progresses [facility]. Dictated By: SUSI HEBERT/NTS Conf#: [id number] DID#: [id number] CC: ROSITA SAUCEDO MD; CLEMENT KRAUS MD;*EndCC*
[2018-09-19] MEDS ORDERED: PANT40TA4 PO (17:17)
[2018-09-19] MEDS ORDERED: traZODone PO (17:17)
--- NOTE | 2018-09-21 22:50 | DS ---
Date/Time of Note Date/Time of Note DATE: 09/21/18 TIME: 22:41 Discharge Summary Admission/Discharge Info Admit Date/Time Sep 06, 2018 at 15:57 Discharge Date/Time September 19, 2018 at 19:20 Patient Condition: Stable Hx of Present Illness The patient is 83 year old female with hx of CHF, HTN and chronic urinary retention with Canas cath presented to ER with flank pain. Pt was diagnosed with sepsis 2 to pyelonephritis and admitted for further evaluation and management. Hospital Course -Hepatocellular carcinoma per CT of the abdomen. Dr. Alcocer is following in oncology consultation. Patient to f/up at [facility] hepatobiliary surgery department according to pt's insurance. 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 -Chronic urinary retention, continue Canas catheter -Status post urinary tract infection, completed treatment. Dr. Marcos is following in infection disease consultation. -CHF -Hypertension, is currently normotensive -Right hydronephrosis -Protein calorie malnutrition Plan of care discussed with Dr. Burr. Home Meds Active Scripts [traZODone] 50 MG TAB No Conflict Check, 25 MG PO HS, #30 Prov:CECIL GAXIOLA 09/19/18 Pantoprazole* (Pantoprazole*) 40 Mg Tablet.dr 40 MG PO DAILY@06 for 30 Days Prov:CECIL GAXIOLA 09/19/18 Ibuprofen* (Motrin*) 400 Mg Tab, 400 MG PO Q6H PRN for PAIN AND OR ELEVATED TEMP, #30 TAB Prov:DARBY MENDOZA MD 09/03/18 Discontinued Scripts Sulfamethoxazole/Trimethoprim* (Bactrim Ds* Tablet) 1 Each Tablet, 1 TAB PO BID, #14 TAB Prov:DARBY MENDOZA MD 09/03/18 Follow-up Plan Patient is to follow-up at [facility] emergency room to be evaluated by hepatobiliary department for hepatocellular carcinoma ( per pt's insurance), telephone number and address of for hepatobiliary department [facility] given to patient jaimie Clark by CM. Primary Care Provider Not On Staff Doctor Time spent on discharge: > 30 minutes CECIL GAXIOLA September 21, 2018 22:50
== END 2018-09-19 19:20 | disposition home health service (06) | DRG 689 ==
LOC: E/R 06:15 → PP2 15:57
PROVIDERS: ADMIT Internal Medicine; ATTEND Internal Medicine
PROC: 0FD98ZX Extraction of Common Bile Duct, Via Natural or Artificial Opening Endoscopic, Diagnostic (ICD-10-PCS; 2018-09-11)
PROC: 0F798DZ Dilation of Common Bile Duct with Intraluminal Device, Via Natural or Artificial Opening Endoscopic (ICD-10-PCS; 2018-09-11)
PROC: 0FC98ZZ Extirpation of Matter from Common Bile Duct, Via Natural or Artificial Opening Endoscopic (ICD-10-PCS; principal; 2018-09-11 18:00)
DX: N13.6 Pyonephrosis (principal); K83.1 Obstruction of bile duct; D61.818 Other pancytopenia; C22.8 Malignant neoplasm of liver, primary, unspecified as to type; E46 Unspecified protein-calorie malnutrition; B37.49 Other urogenital candidiasis; Z68.21 Body mass index [BMI] 21.0-21.9, adult; R33.9 Retention of urine, unspecified; I50.9 Heart failure, unspecified; I11.0 Hypertensive heart disease with heart failure; K21.9 Gastro-esophageal reflux disease without esophagitis; B95.2 Enterococcus as the cause of diseases classified elsewhere; K74.60 Unspecified cirrhosis of liver; B19.20 Unspecified viral hepatitis C without hepatic coma
CPT/HCPCS: 36415; 71045; 74177; 74178; 74181; 74330; 76705; 76775; 80048; 80053; 80061; 81001; 82105; 83605; 83615; 83880; 84443; 84484; 84560; 85025; 85610; 85730; 86301; 86803; 87086; 87522; 88104; 88305; 93005; 93306; 96372; 97162; C2617; J0692; J1170; J1885; J2270; J2405; J7030; J7042; J7120; Q9967

== ENCOUNTER 2018-11-27 21:22 | Emergency (ER) | payer MEDICARE, OTHER ==
[~2018-11-27] VITALS: Ht 175.3 cm; Wt 60.8 kg
[~2018-11-27 21:22] MED LIST changes: -CEPH-443 PO; -GABA300C16 PO; -OMEP40CA6 PO; +PANT40TA4 PO; -PHEN-537 PO; -SPIR50TA PO; -SULF1TAB31 PO; +traZODone PO
[2018-11-27 21:40] VITALS: Ht 175.3 cm; Wt 60.8 kg
[2018-11-28] MEDS ORDERED: ONDANSETRON 4 MG INJ IV STA (02:12)
[2018-11-28] MEDS ORDERED: morphine 4 MG/ML VIAL IV STA (02:12)
[2018-11-28] MEDS ORDERED: SOD CHLORIDE 0.9% 500 ML IV STA (02:12)
[2018-11-28] MEDS ORDERED: CEFTRIAXONE 1 GM/50 ML (PMX) 50 ML IVPB ONE (04:30)
[2018-11-28] MEDS ORDERED: PHEN-538 PO (04:41)
[2018-11-28] MEDS ORDERED: SULF1TAB31 PO (04:41)
--- NOTE | 2018-11-28 04:45 | ERD ---
ER Documentation Chief Complaint Chief Complaint abdominal pain x 1 day HPI Is a 89 female history of hepatocellular carcinoma comes in with suprapubic abdominal pain. She also complains of burning on urination. Denies fevers or chills. Denies any other current complaints. Pain is mild to moderate intensity with no exacerbating alleviating factors. ROS All systems reviewed and are negative except as per history of present illness. Medications Home Meds Active Scripts Phenazopyridine Hcl* (Pyridium*) 200 Mg Tab, 200 MG PO TID PRN for URINARY PAIN, #6 TAB Prov:LIZY ROBINS 11/28/18 Sulfamethoxazole/Trimethoprim* (Bactrim Ds* Tablet) 1 Each Tablet, 1 TAB PO BID, #14 TAB Prov:LIZY ROBINS 11/28/18 [traZODone] 50 MG TAB No Conflict Check, 25 MG PO HS, #30 Prov:CECIL GAXIOLA 09/19/18 Pantoprazole* (Pantoprazole*) 40 Mg Tablet.dr, 40 MG PO DAILY@06 for 30 Days Prov:CECIL GAXIOLA 09/19/18 Ibuprofen* (Motrin*) 400 Mg Tab, 400 MG PO Q6H PRN for PAIN AND OR ELEVATED TEMP, #30 TAB Prov:DARBY MENDOZA MD 09/03/18 Allergies Allergies: Coded Allergies: No Known Allergy (Unverified , 09/06/18) PMhx/Soc History of Surgery: Yes (cataract long time ago) Anesthesia Reaction: No Hx Neurological Disorder: No Hx Respiratory Disorders: No Hx Cardiac Disorders: Yes (HTN long time ago) Hx Psychiatric Problems: No Hx Miscellaneous Medical Probl: Yes (INCONTINENT, ROJAS CATH) Hx Alcohol Use: No Hx Substance Use: No Hx Tobacco Use: No Smoking Status: Never smoker Physical Exam Vitals Vital Signs Date Temp Pulse Resp B/P (MAP) Pulse Ox O2 O2 Flow FiO2 Time Delivery Rate 11/28/18 80 24 148/77 100 Room Air 01:50 (100) 11/27/18 97.3 96 20 159/89 97 21:40 (112) Physical Exam Const: No acute distress Head: Atraumatic Eyes: Normal Conjunctiva ENT: Normal External Ears, Nose and Mouth. Neck: Full range of motion. No meningismus. Resp: Clear to auscultation bilaterally Cardio: Regular rate and rhythm, no murmurs Abd: Soft, non tender, non distended. Normal bowel sounds Skin: No petechiae or rashes Back: No midline or flank tenderness Ext: No cyanosis, or edema Neur: Awake and alert Psych: Normal Mood and Affect Result Diagram: 11/28/18 02111/28/18 0210 Results 24 hrs Laboratory Tests Test 11/28/18 02:10 White Blood Count 4.1 10^3/ul Red Blood Count 4.20 10^6/ul Hemoglobin 10.3 g/dl Hematocrit 35.9 % Mean Corpuscular Volume 85.5 fl Mean Corpuscular Hemoglobin 24.5 pg Mean Corpuscular Hemoglobin Concent 28.7 g/dl Red Cell Distribution Width 17.1 % Platelet Count 111 10^3/UL Mean Platelet Volume 10.0 fl Immature Granulocytes % 0.500 % Neutrophils % 56.0 % Lymphocytes % 32.0 % Monocytes % 8.8 % Eosinophils % 2.2 % Basophils % 0.5 % Nucleated Red Blood Cells % 0.0 /100WBC Immature Granulocytes # 0.020 10^3/ul Neutrophils # 2.3 10^3/ul Lymphocytes # 1.3 10^3/ul Monocytes # 0.4 10^3/ul Eosinophils # 0.1 10^3/ul Basophils # 0.0 10^3/ul Nucleated Red Blood Cells # 0.0 10^3/ul Urine Color YELLOW Urine Clarity CLOUDY Urine pH 6.0 Urine Specific [place] 1.004 Urine Ketones NEGATIVE mg/dL Urine Nitrite NEGATIVE mg/dL Urine Bilirubin NEGATIVE mg/dL Urine Urobilinogen NEGATIVE mg/dL Urine Leukocyte Esterase 3+ Reji/ul Urine Microscopic RBC 12 /HPF Urine Microscopic WBC 104 /HPF Urine Amorphous Crystals MODERATE /HPF Urine Bacteria MANY /HPF Urine Mucus MODERATE /HPF Urine Hemoglobin 2+ mg/dL Urine Glucose NEGATIVE mg/dL Urine Total Protein 1+ mg/dl Sodium Level 138 mmol/L Potassium Level 3.6 mmol/L Chloride Level 105 mmol/L Carbon Dioxide Level 25 mmol/L Anion Gap 8 Blood Urea Nitrogen 8 mg/dl Creatinine 0.73 mg/dl Est Glomerular Filtrat Rate mL/min mL/min Glucose Level 107 mg/dl Calcium Level 8.8 mg/dl Total Bilirubin 0.8 mg/dl Direct Bilirubin 0.00 mg/dl Indirect Bilirubin 0.8 mg/dl Aspartate Amino Transf (AST/SGOT) 56 IU/L Alanine Aminotransferase (ALT/SGPT) 24 IU/L Alkaline Phosphatase 266 IU/L Total Protein 8.8 g/dl Albumin 3.5 g/dl Globulin 5.30 g/dl Albumin/Globulin Ratio 0.66 Lipase 269 U/L Current Medications Medications Dose Sig/Elbert Start Time Status Last (Trade) Ordered Route PRN Stop Time Admin Dose Reason Admin Sodium 500 ml @ Q1H STAT 11/28/18 DC 11/28/18 Chloride 500 mls/hr IV 02:12 02:25 11/28/18 03:11 Morphine 4 mg ONCE STAT 11/28/18 DC 11/28/18 Sulfate IV 02:12 02:25 (morphine) 11/28/18 02:13 Ondansetron 4 mg ONCE STAT 11/28/18 DC 11/28/18 HCl (Zofran IV 02:12 02:25 Inj) 11/28/18 02:14 Ceftriaxone 50 ml @ ONCE ONCE 11/28/18 11/28/18 Sodium 100 mls/hr IVPB 04:30 04:14 11/28/18 04:59 Procedures/MDM Chest X-ray 1V Interpreted by me: Soft Tissue: No acute abnormalities Bones: No acute abnormalities Mediastinum/Cardiac Silhouette/Lungs: [No acute abnormalities] Medical decision making: This 83-year-old female who has evidence of urinary tract infection. She has had a urine culture. Started on intravenous Rocephin here. Discharged home with Bactrim. Follow with primary care physician. Also given Pyridium for bladder spasms. Patient's gastrointestinal symptoms have stabilized while in the department. No evidence of severe dehydration, sepsis, or surgical abdomen. Extensive discussion with family and patient that occult disease cannot be ruled out. 8 hour recheck for repeat abdominal exam is planned. Departure Diagnosis: Primary Impression: Abdominal pain Abdominal location: unspecified location Qualified Codes: R10.9 - Unspecified abdominal pain Condition: Stable Patient Instructions: Understanding Urinary Tract Infections (UTIs) LIZY ROBINS Nov 28, 2018 04:45
[2018-11-28 05:02] VITALS: BP 152/79; PULSE 80; RESP 18
== END 2018-11-28 05:02 | disposition home or self-care (01) ==
LOC: E/R 21:22
DX: R10.30 Lower abdominal pain, unspecified (principal); I10 Essential (primary) hypertension
CPT/HCPCS: 36415; 71045; 74176; 80053; 81001; 83690; 85025; 96374; 96375; 99285; J0696; J2270; J2405; J7040

== ENCOUNTER 2018-12-06 11:14 | Emergency (ER) | payer MEDICARE, OTHER ==
[~2018-12-06] VITALS: Ht 154.9 cm; Wt 58.5 kg
[~2018-12-06 11:14] MED LIST changes: +ALBU18HF INHALATION; +GABA300C16 PO; +OMEP40CA6 PO; +PHEN-538 PO; +SPIR25TA PO; +SULF1TAB31 PO; +ZOLP5TAB7 PO
[2018-12-06 11:26] VITALS: Ht 154.9 cm; Wt 58.5 kg
--- NOTE | 2018-12-06 12:13 | ERD ---
ER Documentation Chief Complaint Chief Complaint c/o abdominal pain and vaginal bleeding, started this AM. no NVD HPI My name is patient presenting with 1 day of abdominal pain. Describes it as lower suprapubic pain. Pain started last night and was persistent throughout the night but improved after she had one episode of vaginal bleeding this morning. Bleeding has since stopped. Patient denies any symptoms of lightheadedness, nausea, vomiting, dysuria or hematuria. Was recently treated for an UTI with Bactrim and has 1 day left of antibiotics. No prior episodes of vaginal bleeding. No rectal bleeding. No weakness or shortness of breath or chest pain. ROS All systems reviewed and are negative except as per history of present illness. Medications Home Meds Reported Medications Gabapentin* (Gabapentin*) 300 Mg Capsule, 300 MG PO TID, #90 CAP 12/06/18 Omeprazole* (Omeprazole*) 40 Mg Capsule.dr, 40 MG PO DAILY, #30 CAP 12/06/18 Albuterol Sulfate* (Ventolin HFA*) 18 Gm Hfa.aer.ad, 2 PUFF INHALATION Q4H, #1 INHALER 12/06/18 Zolpidem Tartrate* (Zolpidem Tartrate*) 5 Mg Tablet, 5 MG PO QHS PRN for I NSOMNIA, #30 TAB 12/06/18 Spironolactone* (Aldactone*) 25 Mg Tablet, 25 MG PO DAILY, #30 TAB 12/06/18 Discontinued Scripts Phenazopyridine Hcl* (Pyridium*) 200 Mg Tab, 200 MG PO TID PRN for URINARY PAIN, #6 TAB Prov:LIZY ROBINS 11/28/18 Sulfamethoxazole/Trimethoprim* (Bactrim Ds* Tablet) 1 Each Tablet, 1 TAB PO BID, #14 TAB Prov:LIZY ROBINS 11/28/18 [traZODone] 50 MG TAB No Conflict Check, 25 MG PO HS, #30 Prov:CECIL GAXIOLA 09/19/18 Pantoprazole* (Pantoprazole*) 40 Mg Tablet.dr, 40 MG PO DAILY@06 for 30 Days Prov:CECIL GAXIOLA 09/19/18 Ibuprofen* (Motrin*) 400 Mg Tab, 400 MG PO Q6H PRN for PAIN AND OR ELEVATED TEMP, #30 TAB Prov:DARBY MENDOZA MD 09/03/18 Allergies Allergies: Coded Allergies: No Known Allergy (Unverified , 12/06/18) PMhx/Soc Medical and Surgical Hx: pt denies Medical Hx (Hepatocellular carcinoma, CHF) History of Surgery: Yes (cataract long time ago) Anesthesia Reaction: No Hx Neurological Disorder: No Hx Respiratory Disorders: No Hx Cardiac Disorders: Yes (HTN long time ago) Hx Psychiatric Problems: No Hx Miscellaneous Medical Probl: Yes (INCONTINENT, ROJAS CATH) Hx Alcohol Use: No Hx Substance Use: No Hx Tobacco Use: No Physical Exam Vitals Vital Signs Date Temp Pulse Resp B/P (MAP) Pulse Ox O2 O2 Flow FiO2 Time Delivery Rate 12/06/18 97.5 82 16 136/81 100 Room Air 14:39 (99) 12/06/18 78 16 133/90 98 Room Air 13:15 (104) 12/06/18 98.0 107 20 113/75 97 11:26 (88) Physical Exam Const: No acute distress Head: Atraumatic Eyes: Normal Conjunctiva ENT: Normal External Ears, Nose and Mouth. Neck: Full range of motion. No meningismus. Resp: Clear to auscultation bilaterally Cardio: Regular rate and rhythm, no murmurs Abd: Soft, mild tender over suprapubic region, non distended. Normal bowel sounds Pelvic Exam: Document Management Consultant present Abdomen: Nontender External Genitalia: Normal Skin Speculum: Normal vaginal mucosa, normal cervical discharge. No vaginal bleeding Bimanual: No adnexal masses or tenderness, No CMT Skin: No petechiae or rashes Back: No midline or flank tenderness Ext: No cyanosis, or edema Neur: Awake and alert Psych: Normal Mood and Affect Result Diagram: 12/06/18 1232 12/06/18 1232 Results 24 hrs Laboratory Tests Test 12/06/18 12:32 12/06/18 14:08 White Blood Count 5.3 10^3/ul Red Blood Count 4.10 10^6/ul Hemoglobin 10.1 g/dl Hematocrit 34.1 % Mean Corpuscular Volume 83.2 fl Mean Corpuscular Hemoglobin 24.6 pg Mean Corpuscular Hemoglobin Concent 29.6 g/dl Red Cell Distribution Width 16.9 % Platelet Count 133 10^3/UL Mean Platelet Volume 9.6 fl Immature Granulocytes % 0.400 % Neutrophils % 68.1 % Lymphocytes % 22.0 % Monocytes % 8.3 % Eosinophils % 0.6 % Basophils % 0.6 % Nucleated Red Blood Cells % 0.0 /100WBC Immature Granulocytes # 0.020 10^3/ul Neutrophils # 3.6 10^3/ul Lymphocytes # 1.2 10^3/ul Monocytes # 0.4 10^3/ul Eosinophils # 0.0 10^3/ul Basophils # 0.0 10^3/ul Nucleated Red Blood Cells # 0.0 10^3/ul Prothrombin Time 15.8 Sec Prothrombin Time Ratio 1.2 INR International Normalized Ratio 1.25 Activated Partial Thromboplast Time 33.3 Sec Sodium Level 133 mmol/L Potassium Level 5.0 mmol/L Chloride Level 105 mmol/L Carbon Dioxide Level 20 mmol/L Anion Gap 8 Blood Urea Nitrogen 16 mg/dl Creatinine 1.25 mg/dl Est Glomerular Filtrat Rate mL/min mL/min Glucose Level 125 mg/dl Calcium Level 9.0 mg/dl Total Bilirubin 0.8 mg/dl Direct Bilirubin 0.00 mg/dl Indirect Bilirubin 0.8 mg/dl Aspartate Amino Transf (AST/SGOT) 58 IU/L Alanine Aminotransferase (ALT/SGPT) 24 IU/L Alkaline Phosphatase 156 IU/L Total Protein 8.8 g/dl Albumin 3.5 g/dl Globulin 5.30 g/dl Albumin/Globulin Ratio 0.66 Lipase 322 U/L Urine Color YELLOW Urine Clarity SLIGHTLY CLOUDY Urine pH 6.0 Urine Specific [place] 1.005 Urine Ketones NEGATIVE mg/dL Urine Nitrite NEGATIVE mg/dL Urine Bilirubin NEGATIVE mg/dL Urine Urobilinogen NEGATIVE mg/dL Urine Leukocyte Esterase 3+ Reji/ul Urine Microscopic RBC 55 /HPF Urine Microscopic WBC 17 /HPF Urine Bacteria FEW /HPF Urine Hemoglobin 3+ mg/dL Urine Glucose NEGATIVE mg/dL Urine Total Protein 1+ mg/dl Current Medications Medications Dose Sig/Elbert Start Time Status Last (Trade) Ordered Route PRN Stop Time Admin Dose Reason Admin Sodium 500 ml @ Q1H ONCE 12/06/18 DC 12/06/18 Chloride 500 mls/hr IV 13:30 13:09 12/06/18 14:29 IV Flush 10 ml STK-MED 12/06/18 DC 12/06/18 (NS 10 ml) ONCE .ROUTE 14:10 14:14 12/06/18 14:11 Sodium 100 ml @ ud STK-MED 12/06/18 DC 12/06/18 Chloride ONCE .ROUTE 14:10 14:15 12/06/18 14:11 Iodixanol 100 ml STK-MED 12/06/18 DC 12/06/18 (Visipaque ONCE .ROUTE 14:10 14:15 Locm) 12/06/18 14:11 Procedures/MDM Patient presented for vaginal bleeding. One episode this morning. Since then has stopped. Hemodynamic stable. No active vaginal bleeding. No acute anemia. CT shows mild fluid in the endometrial cavity. Will have patient follow-up with [facility]. At this time low suspicion for hemorrhage, acute intra-abdominal pathology. Patient does not have any orthostatic symptoms. Will discharge Departure Diagnosis: Primary Impression: Vaginal bleeding Condition: Stable Additional Instructions: Please follow-up with a center administrator for further testing given you have vaginal bleeding. If your bleeding worsens, you feel faint please come back to the emergency department JOSEE TIERNEY MD Dec 06, 2018 12:13
[2018-12-06] MEDS ORDERED: SOD CHLORIDE 0.9% 500 ML IV ONE (13:30)
[2018-12-06] MEDS ORDERED: SOD CHLORIDE 0.9% 100 ML ONE (14:10)
[2018-12-06] MEDS ORDERED: IODIXANOL LOCM 100 ML BTL ONE (14:10)
[2018-12-06 15:53] VITALS: BP 132/71; PULSE 79; RESP 16
== END 2018-12-06 15:53 | disposition home or self-care (01) ==
LOC: E/R 11:14
DX: N93.9 Abnormal uterine and vaginal bleeding, unspecified (principal); I10 Essential (primary) hypertension; R10.30 Lower abdominal pain, unspecified
CPT/HCPCS: 36415; 74177; 80053; 81001; 83690; 85025; 85610; 85730; 96360; 99285; J7040; Q9967

== ENCOUNTER 2019-01-11 18:32 | Inpatient (IN) | payer MEDICARE, OTHER ==
[~2019-01-11] VITALS: Ht 152.4 cm; Wt 60.4 kg
[~2019-01-11 18:32] MED LIST changes: +BENA10TA6 PO; +BETH10TA PO; +DOCU-159 PO; +IBUP-1542 PO; -IBUP-1561 PO; +LEVO500T48 PO; +OMEP40CA38 PO; -OMEP40CA6 PO; +ONDA4TAB8 PO; +RANI300T3 PO; +SUCR1TAB56 PO; -SULF1TAB31 PO; -traZODone PO
[2019-01-11 18:34] VITALS: Ht 152.4 cm; Wt 60.4 kg
[2019-01-11] MEDS ORDERED: SOD CHLORIDE 0.9% 1,000 ML IV STA (23:03)
[2019-01-11] MEDS ORDERED: BELLADONNA/PHENOBARBITAL TAB PO STA (23:03)
[2019-01-11] MEDS ORDERED: ONDANSETRON 4 MG INJ IV STA (23:03)
[2019-01-11] MEDS ORDERED: KETOROLAC 15 MG INJ IV STA (23:03)
[2019-01-11] MEDS ORDERED: LIDOCAINE/MYLANTA 40 ML BTL PO STA (23:03)
[2019-01-12] MEDS ORDERED: CEFEPIME 1GM/50 ML (PMX) 50 ML IVPB ONE
[2019-01-12 03:28] VITALS: BP 117/75; PULSE 71; RESP 17
[2019-01-12] MEDS: CEFEPIME 1GM/50 ML (PMX) 50 ML IVPB SCH ×3 (05:45→21:17)
[2019-01-12 07:57] VITALS: BP 145/77; PULSE 72; RESP 16
[2019-01-12] MEDS: RANITIDINE 150 MG TAB PO SCH (09:13)
[2019-01-12] MEDS: SPIRONOLACTONE 25 MG TAB PO SCH (09:13)
[2019-01-12] MEDS: BETHANECHOL 10 MG TAB PO SCH ×3 (09:13→20:42)
[2019-01-12] MEDS: SUCRALFATE 1 GM TAB PO SCH ×4 (09:13→20:42)
[2019-01-12 15:00] VITALS: BP 128/76; PULSE 77; RESP 16
[2019-01-12 19:59] VITALS: BP 141/78; PULSE 75; RESP 17
[2019-01-12] MEDS: ZOLPIDEM 5 MG TAB PO PRN (20:42)
[2019-01-13 01:25] VITALS: BP 138/73; PULSE 90; RESP 17
[2019-01-13] MEDS: CEFEPIME 1GM/50 ML (PMX) 50 ML IVPB SCH ×3 (05:08→21:10)
[2019-01-13 07:58] VITALS: BP 133/77; PULSE 85; RESP 18
[2019-01-13] MEDS: RANITIDINE 150 MG TAB PO SCH (08:26)
[2019-01-13] MEDS: BETHANECHOL 10 MG TAB PO SCH ×3 (08:26→21:08)
[2019-01-13] MEDS: SPIRONOLACTONE 25 MG TAB PO SCH (08:26)
[2019-01-13] MEDS: SUCRALFATE 1 GM TAB PO SCH ×4 (08:26→21:08)
[2019-01-13 13:59] VITALS: BP 144/69; PULSE 86; RESP 18
[2019-01-13] MEDS: morphine 2 MG INJ IV PRN (14:24)
[2019-01-13 19:43] VITALS: BP 126/73; PULSE 88; RESP 18
[2019-01-13] MEDS: ZOLPIDEM 5 MG TAB PO PRN (21:08)
[2019-01-14 02:00] VITALS: BP 134/77; PULSE 86; RESP 18
[2019-01-14] MEDS: CEFEPIME 1GM/50 ML (PMX) 50 ML IVPB SCH ×2 (05:50→20:28)
[2019-01-14 08:10] VITALS: BP 152/82; PULSE 81; RESP 18
[2019-01-14] MEDS: SUCRALFATE 1 GM TAB PO SCH ×4 (09:12→20:28)
[2019-01-14] MEDS: SPIRONOLACTONE 25 MG TAB PO SCH (09:12)
[2019-01-14] MEDS: RANITIDINE 150 MG TAB PO SCH (09:12)
[2019-01-14] MEDS: BETHANECHOL 10 MG TAB PO SCH ×3 (09:12→20:28)
[2019-01-14 15:33] VITALS: BP 117/70; PULSE 75; RESP 18
[2019-01-14] MEDS ORDERED: BARIUM SULF 2% 450 ML BTL (BERRY SMOOTHIE) PO ONE (17:30)
[2019-01-14 19:50] VITALS: BP 155/72; PULSE 95; RESP 18
[2019-01-14] MEDS: ZOLPIDEM 5 MG TAB PO PRN (20:28)
[2019-01-15] MEDS ORDERED: IOHEXOL 300MG/ML 150 ML BTL ONE ×2 (01:30→20:23)
[2019-01-15] MEDS ORDERED: SOD CHLORIDE 0.9% 100 ML ONE ×2 (01:30→20:23)
[2019-01-15 02:23] VITALS: BP 145/90; PULSE 108; RESP 18
[2019-01-15 07:43] VITALS: BP 146/73; PULSE 92; RESP 16
[2019-01-15] MEDS: SPIRONOLACTONE 25 MG TAB PO SCH (08:46)
[2019-01-15] MEDS: CEFEPIME 1GM/50 ML (PMX) 50 ML IVPB SCH (08:46)
[2019-01-15] MEDS: SUCRALFATE 1 GM TAB PO SCH ×4 (08:46→21:03)
[2019-01-15] MEDS: BETHANECHOL 10 MG TAB PO SCH ×3 (08:47→21:03)
[2019-01-15] MEDS: RANITIDINE 150 MG TAB PO SCH (08:47)
[2019-01-15] MEDS: ERTAPENEM SODIUM 1 GM in SOD CHLORIDE 0.9% 100 ML IVPB SCH (13:04)
[2019-01-15 14:00] VITALS: BP 141/71; PULSE 89; RESP 16
[2019-01-15 19:32] VITALS: BP 138/75; PULSE 86; RESP 17
[2019-01-15] MEDS: ZOLPIDEM 5 MG TAB PO PRN (22:05)
[2019-01-16 02:04] VITALS: BP 121/67; PULSE 80; RESP 18
[2019-01-16 07:35] VITALS: BP 153/83; PULSE 93; RESP 22
[2019-01-16] MEDS: BETHANECHOL 10 MG TAB PO SCH ×3 (10:41→21:41)
[2019-01-16] MEDS: SPIRONOLACTONE 25 MG TAB PO SCH (10:41)
[2019-01-16] MEDS: SUCRALFATE 1 GM TAB PO SCH ×4 (10:41→21:41)
[2019-01-16] MEDS: RANITIDINE 150 MG TAB PO SCH (10:41)
[2019-01-16 14:22] VITALS: BP 144/79; PULSE 85; RESP 18
[2019-01-16] MEDS: ERTAPENEM SODIUM 1 GM in SOD CHLORIDE 0.9% 100 ML IVPB SCH (16:11)
[2019-01-16 18:00] VITALS: BP 132/82; PULSE 88; RESP 18
[2019-01-16] MEDS: ZOLPIDEM 5 MG TAB PO PRN (21:41)
[2019-01-16 21:42] VITALS: BP 132/82; PULSE 88; RESP 18
[2019-01-17 02:30] VITALS: BP 143/79; PULSE 91; RESP 18
[2019-01-17 08:01] VITALS: BP 124/74; PULSE 94; RESP 18
[2019-01-17] MEDS: SUCRALFATE 1 GM TAB PO SCH ×4 (09:13→21:31)
[2019-01-17] MEDS: RANITIDINE 150 MG TAB PO SCH (09:13)
[2019-01-17] MEDS: BETHANECHOL 10 MG TAB PO SCH ×3 (09:13→21:31)
[2019-01-17] MEDS: SPIRONOLACTONE 25 MG TAB PO SCH (09:13)
[2019-01-17] MEDS: ERTAPENEM SODIUM 1 GM in SOD CHLORIDE 0.9% 100 ML IVPB SCH (13:54)
[2019-01-17 14:56] VITALS: BP 132/76; PULSE 89; RESP 18
[2019-01-17 20:04] VITALS: BP 140/88; PULSE 96; RESP 20
[2019-01-17] MEDS: ZOLPIDEM 5 MG TAB PO PRN (21:31)
[2019-01-18 02:55] VITALS: BP 133/77; PULSE 85; RESP 18
[2019-01-18 08:31] VITALS: BP 132/77; PULSE 94; RESP 18
[2019-01-18] MEDS: SUCRALFATE 1 GM TAB PO SCH ×4 (08:53→22:22)
[2019-01-18] MEDS: RANITIDINE 150 MG TAB PO SCH (08:53)
[2019-01-18] MEDS: BETHANECHOL 10 MG TAB PO SCH ×3 (08:53→22:22)
[2019-01-18] MEDS: SPIRONOLACTONE 25 MG TAB PO SCH (08:53)
[2019-01-18] MEDS: ERTAPENEM SODIUM 1 GM in SOD CHLORIDE 0.9% 100 ML IVPB SCH (13:22)
[2019-01-18 15:00] VITALS: BP 128/77; PULSE 91; RESP 20
[2019-01-18 20:55] VITALS: BP 137/87; PULSE 87; RESP 18
[2019-01-18] MEDS: ZOLPIDEM 5 MG TAB PO PRN (22:22)
[2019-01-19 01:56] VITALS: BP 147/85; PULSE 94; RESP 20
[2019-01-19 08:44] VITALS: BP 126/72; PULSE 98; RESP 18
[2019-01-19] MEDS: BETHANECHOL 10 MG TAB PO SCH ×3 (09:11→20:54)
[2019-01-19] MEDS: SPIRONOLACTONE 25 MG TAB PO SCH (09:12)
[2019-01-19] MEDS: SUCRALFATE 1 GM TAB PO SCH ×4 (09:12→20:54)
[2019-01-19] MEDS: RANITIDINE 150 MG TAB PO SCH (09:12)
[2019-01-19] MEDS: ERTAPENEM SODIUM 1 GM in SOD CHLORIDE 0.9% 100 ML IVPB SCH (12:45)
[2019-01-19 13:36] VITALS: BP 133/75; PULSE 90; RESP 18
[2019-01-19 20:12] VITALS: BP 132/82; PULSE 99; RESP 18
[2019-01-20 01:43] VITALS: BP 152/83; PULSE 98; RESP 18
[2019-01-20 07:31] VITALS: BP 127/76; PULSE 87; RESP 20
[2019-01-20] MEDS: BETHANECHOL 10 MG TAB PO SCH ×3 (09:13→20:50)
[2019-01-20] MEDS: SPIRONOLACTONE 25 MG TAB PO SCH (09:13)
[2019-01-20] MEDS: RANITIDINE 150 MG TAB PO SCH (09:14)
[2019-01-20] MEDS: SUCRALFATE 1 GM TAB PO SCH ×4 (09:14→20:50)
[2019-01-20] MEDS: morphine 2 MG INJ IV PRN (09:53)
[2019-01-20] MEDS: ERTAPENEM SODIUM 1 GM in SOD CHLORIDE 0.9% 100 ML IVPB SCH (13:41)
[2019-01-20 14:08] VITALS: BP 148/84; PULSE 90; RESP 18
[2019-01-20 19:59] VITALS: BP 136/85; PULSE 94; RESP 18
[2019-01-21 01:20] VITALS: BP 134/67; PULSE 94; RESP 18
[2019-01-21 07:53] VITALS: BP 134/71; PULSE 93; RESP 16
[2019-01-21] MEDS: SPIRONOLACTONE 25 MG TAB PO SCH (08:10)
[2019-01-21] MEDS: morphine 2 MG INJ IV PRN (08:10)
[2019-01-21] MEDS: BETHANECHOL 10 MG TAB PO SCH ×2 (08:10→12:38)
[2019-01-21] MEDS: RANITIDINE 150 MG TAB PO SCH (08:11)
[2019-01-21] MEDS: SUCRALFATE 1 GM TAB PO SCH ×4 (08:11→22:12)
[2019-01-21] MEDS: ERTAPENEM SODIUM 1 GM in SOD CHLORIDE 0.9% 100 ML IVPB SCH (12:37)
[2019-01-21 15:00] VITALS: BP 136/74; PULSE 94; RESP 18
[2019-01-21] MEDS ORDERED: HYDROCODONE/APAP (5/325) TAB PO PRN (20:00)
[2019-01-21 20:09] VITALS: BP 129/77; PULSE 92; RESP 20
[2019-01-22 02:18] VITALS: BP 147/72; PULSE 89; RESP 18
[2019-01-22 07:51] VITALS: BP 132/64; PULSE 89; RESP 18
[2019-01-22] MEDS: SUCRALFATE 1 GM TAB PO SCH ×4 (08:49→19:58)
[2019-01-22] MEDS: SPIRONOLACTONE 25 MG TAB PO SCH (08:49)
[2019-01-22] MEDS: RANITIDINE 150 MG TAB PO SCH (08:50)
[2019-01-22] MEDS: ERTAPENEM SODIUM 1 GM in SOD CHLORIDE 0.9% 100 ML IVPB SCH (13:19)
[2019-01-22 14:39] VITALS: BP 132/74; PULSE 98; RESP 17
[2019-01-22] MEDS: ZOLPIDEM 5 MG TAB PO PRN (19:58)
[2019-01-22 20:00] VITALS: BP 124/69; PULSE 94; RESP 18
[2019-01-23] MEDS: morphine 2 MG INJ IV PRN (02:31)
[2019-01-23 08:21] VITALS: BP 134/65; PULSE 97; RESP 16
[2019-01-23] MEDS: SPIRONOLACTONE 25 MG TAB PO SCH (09:58)
[2019-01-23] MEDS: RANITIDINE 150 MG TAB PO SCH (09:58)
[2019-01-23] MEDS: SUCRALFATE 1 GM TAB PO SCH (09:58)
== END 2019-01-23 12:35 | disposition home health service (06) | DRG 699 ==
LOC: E/R 18:32 → 2NE 01-12 00:42
PROVIDERS: ADMIT Internal Medicine; ATTEND Internal Medicine
DX: T83.518A Infection and inflammatory reaction due to other urinary catheter, initial encounter (principal); N39.0 Urinary tract infection, site not specified; R18.8 Other ascites; C22.0 Liver cell carcinoma; E86.0 Dehydration; I11.0 Hypertensive heart disease with heart failure; I50.9 Heart failure, unspecified; B96.20 Unspecified Escherichia coli [E. coli] as the cause of diseases classified elsewhere; R33.9 Retention of urine, unspecified; B19.20 Unspecified viral hepatitis C without hepatic coma; K74.60 Unspecified cirrhosis of liver; Y73.8 Miscellaneous gastroenterology and urology devices associated with adverse incidents, not elsewhere classified; R91.1 Solitary pulmonary nodule; D69.6 Thrombocytopenia, unspecified; K81.9 Cholecystitis, unspecified
CPT/HCPCS: 36415; 71045; 71260; 74178; 76705; 80048; 80053; 81001; 82105; 82378; 83690; 84484; 85025; 85610; 85730; 86301; 87086; 93005; 93306; 96361; 96365; 96375; J0692; J1335; J1885; J2270; J2405; J7030; Q9967

== ENCOUNTER 2019-02-27 20:09 | Inpatient (IN) | payer MEDICARE, OTHER ==
[~2019-02-27] VITALS: Ht 167.6 cm; Wt 63.0 kg
[~2019-02-27 20:09] MED LIST changes: -BETH10TA PO; -GABA300C16 PO; -PHEN-538 PO; -RANI300T3 PO
[2019-02-28] MEDS ORDERED: PIPER-TAZO 3.375 GM IV (PMX) 100 ML IVPB ONE (01:00)
[2019-02-28] MEDS ORDERED: KETOROLAC 15 MG INJ IV ONE (02:39)
[2019-02-28] MEDS ORDERED: PROMETHAZINE/CODEINE 5ML CUP PO ONE (03:00)
[2019-02-28 06:00] VITALS: BP 135/83; PULSE 86; RESP 18
[2019-02-28 06:40] VITALS: Ht 167.6 cm; Wt 63.0 kg
[2019-02-28 08:00] VITALS: BP 142/82; PULSE 85; RESP 20
[2019-02-28] MEDS ORDERED: ONDANSETRON 4 MG INJ IV PRN (08:00)
[2019-02-28] MEDS ORDERED: CEFTRIAXONE 1 GM/50 ML (PMX) 50 ML IVPB SCH (08:30)
[2019-02-28] MEDS: ALBUTEROL HFA 8 GM INHALER INH SCH ×4 (10:44→21:00)
[2019-02-28] MEDS: SPIRONOLACTONE 50 MG TAB PO SCH (10:44)
[2019-02-28] MEDS: DEXTROSE 5%-0.45% NACL 1,000 ML IV SCH (10:45)
[2019-02-28 14:00] VITALS: BP 139/73; PULSE 85; RESP 20
[2019-02-28] MEDS: PIPER-TAZO 3.375 GM IV (PMX) 100 ML IVPB SCH ×2 (14:59→21:56)
[2019-02-28] MEDS: BUDESONIDE (NEB) 0.5MG/2ML AMP HHN SCH ×2 (15:37→20:18)
[2019-02-28] MEDS: PANTOPRAZOLE 40 MG INJ IV SCH (17:54)
[2019-02-28] MEDS: morphine 2 MG INJ IV PRN ×2 (18:17→23:01)
[2019-02-28 20:41] VITALS: BP 161/78; PULSE 84; RESP 18
[2019-02-28 21:00] VITALS: PULSE 84
[2019-03-01 01:51] VITALS: BP 130/76; PULSE 78
[2019-03-01 01:52] VITALS: BP 128/56; PULSE 87; RESP 19
[2019-03-01] MEDS: ALBUTEROL HFA 8 GM INHALER INH SCH ×6 (02:28→21:00)
[2019-03-01] MEDS: DEXTROSE 5%-0.45% NACL 1,000 ML IV SCH ×2 (05:00→12:28)
[2019-03-01] MEDS: PANTOPRAZOLE 40 MG INJ IV SCH ×2 (05:23→18:20)
[2019-03-01] MEDS: PIPER-TAZO 3.375 GM IV (PMX) 100 ML IVPB SCH ×2 (05:23→13:57)
[2019-03-01 07:25] VITALS: BP 128/71; PULSE 61; RESP 16
[2019-03-01] MEDS: BUDESONIDE (NEB) 0.5MG/2ML AMP HHN SCH ×2 (08:38→20:20)
[2019-03-01 09:29] VITALS: BP 143/88; PULSE 95
[2019-03-01] MEDS: SPIRONOLACTONE 50 MG TAB PO SCH (09:31)
[2019-03-01 14:21] VITALS: BP 131/70; PULSE 83; RESP 16
[2019-03-01] MEDS: MEROPENEM 500MG/50 ML (PMX) 50 ML IVPB SCH ×2 (16:17→20:49)
[2019-03-01 20:30] VITALS: BP 127/72; PULSE 89; RESP 18
[2019-03-02] MEDS: ALBUTEROL HFA 8 GM INHALER INH SCH ×6 (00:10→20:31)
[2019-03-02 02:30] VITALS: BP 123/56; PULSE 88; RESP 19
[2019-03-02] MEDS: PANTOPRAZOLE 40 MG INJ IV SCH ×2 (05:22→17:33)
[2019-03-02] MEDS: DEXTROSE 5%-0.45% NACL 1,000 ML IV SCH (06:29)
[2019-03-02 07:28] VITALS: BP 135/81; PULSE 83; RESP 16
[2019-03-02] MEDS: BUDESONIDE (NEB) 0.5MG/2ML AMP HHN SCH ×2 (08:09→21:28)
[2019-03-02] MEDS: POLYETHYLENE GLYCOL 17 GM PACKET PO SCH (09:55)
[2019-03-02] MEDS: MEROPENEM 500MG/50 ML (PMX) 50 ML IVPB SCH ×2 (09:55→20:31)
[2019-03-02] MEDS: SPIRONOLACTONE 50 MG TAB PO SCH (09:55)
[2019-03-02 14:36] VITALS: BP 141/88; PULSE 94; RESP 16
[2019-03-02] MEDS ORDERED: FLUCONAZOLE 150 MG TAB PO ONE (15:00)
[2019-03-02 21:27] VITALS: BP 145/80; PULSE 90; RESP 20
[2019-03-02] MEDS: ZOLPIDEM 5 MG TAB PO PRN (22:54)
[2019-03-02 23:23] VITALS: BP 136/78; PULSE 86
[2019-03-03] MEDS: ALBUTEROL HFA 8 GM INHALER INH SCH ×6 (01:10→22:39)
[2019-03-03 02:55] VITALS: BP 147/72; PULSE 86; RESP 18
[2019-03-03] MEDS: PANTOPRAZOLE 40 MG INJ IV SCH ×2 (06:02→18:30)
[2019-03-03] MEDS: DEXTROSE 5%-0.45% NACL 1,000 ML IV SCH (06:03)
[2019-03-03 08:17] VITALS: BP 136/65; PULSE 87; RESP 18
[2019-03-03] MEDS: MEROPENEM 500MG/50 ML (PMX) 50 ML IVPB SCH ×2 (08:46→21:53)
[2019-03-03] MEDS: POLYETHYLENE GLYCOL 17 GM PACKET PO SCH ×2 (08:48→08:59)
[2019-03-03] MEDS: SPIRONOLACTONE 50 MG TAB PO SCH (08:48)
[2019-03-03] MEDS: BUDESONIDE (NEB) 0.5MG/2ML AMP HHN SCH ×2 (09:23→19:23)
[2019-03-03 20:24] VITALS: BP 124/71; PULSE 82; RESP 19
[2019-03-03] MEDS: ZOLPIDEM 5 MG TAB PO PRN (22:39)
[2019-03-04] MEDS: ALBUTEROL HFA 8 GM INHALER INH SCH ×6 (01:00→21:07)
[2019-03-04 01:52] VITALS: BP 122/69; PULSE 79; RESP 20
[2019-03-04] MEDS: DEXTROSE 5%-0.45% NACL 1,000 ML IV SCH (04:46)
[2019-03-04] MEDS: PANTOPRAZOLE 40 MG INJ IV SCH ×2 (05:40→18:07)
[2019-03-04 08:00] VITALS: BP 140/74; PULSE 76; RESP 18
[2019-03-04] MEDS: POLYETHYLENE GLYCOL 17 GM PACKET PO SCH (08:50)
[2019-03-04] MEDS: MEROPENEM 500MG/50 ML (PMX) 50 ML IVPB SCH ×2 (09:00→21:05)
[2019-03-04] MEDS: SPIRONOLACTONE 50 MG TAB PO SCH (09:00)
[2019-03-04] MEDS: BENAZEPRIL 10 MG TAB PO SCH (09:00)
[2019-03-04] MEDS: BUDESONIDE (NEB) 0.5MG/2ML AMP HHN SCH ×2 (09:02→19:44)
[2019-03-04] MEDS: IBUPROFEN 600 MG TAB PO PRN ×2 (12:23→12:39)
[2019-03-04 14:00] VITALS: BP 106/58; PULSE 78; RESP 16
[2019-03-04 20:09] VITALS: BP 102/52; PULSE 83; RESP 18
[2019-03-05] MEDS: ALBUTEROL HFA 8 GM INHALER INH SCH ×6 (01:12→20:17)
[2019-03-05] MEDS: DEXTROSE 5%-0.45% NACL 1,000 ML IV SCH ×2 (01:12→21:56)
[2019-03-05 02:01] VITALS: BP 120/74; PULSE 78; RESP 19
[2019-03-05] MEDS: PANTOPRAZOLE 40 MG INJ IV SCH ×2 (05:56→17:48)
[2019-03-05 08:00] VITALS: BP 134/64; PULSE 77; RESP 16
[2019-03-05] MEDS: BUDESONIDE (NEB) 0.5MG/2ML AMP HHN SCH ×2 (08:40→21:15)
[2019-03-05] MEDS: POLYETHYLENE GLYCOL 17 GM PACKET PO SCH (08:56)
[2019-03-05] MEDS: BENAZEPRIL 10 MG TAB PO SCH (08:56)
[2019-03-05] MEDS: SPIRONOLACTONE 50 MG TAB PO SCH (08:56)
[2019-03-05] MEDS: MEROPENEM 500MG/50 ML (PMX) 50 ML IVPB SCH ×2 (08:56→20:17)
[2019-03-05 14:00] VITALS: BP 116/56; PULSE 78; RESP 16
[2019-03-05 20:55] VITALS: BP 147/63; PULSE 83; RESP 18
[2019-03-05] MEDS: ZOLPIDEM 5 MG TAB PO PRN (21:53)
[2019-03-06] MEDS: ALBUTEROL HFA 8 GM INHALER INH SCH ×6 (01:06→21:30)
[2019-03-06 02:09] VITALS: BP 131/65; PULSE 82; RESP 18
[2019-03-06] MEDS: PANTOPRAZOLE 40 MG INJ IV SCH ×2 (05:19→18:30)
[2019-03-06 08:05] VITALS: BP 134/67; PULSE 74; RESP 16
[2019-03-06] MEDS: BUDESONIDE (NEB) 0.5MG/2ML AMP HHN SCH ×2 (08:32→20:42)
[2019-03-06] MEDS: POLYETHYLENE GLYCOL 17 GM PACKET PO SCH ×2 (09:00→09:13)
[2019-03-06] MEDS: BENAZEPRIL 10 MG TAB PO SCH (09:07)
[2019-03-06] MEDS: SPIRONOLACTONE 50 MG TAB PO SCH (09:07)
[2019-03-06] MEDS: MEROPENEM 500MG/50 ML (PMX) 50 ML IVPB SCH ×2 (09:10→21:29)
[2019-03-06] MEDS ORDERED: MAGNESIUM SULFATE 2 GM/50 ML 50 ML IVPB ONE (13:30)
[2019-03-06 13:39] VITALS: BP 120/70; PULSE 70; RESP 18
[2019-03-06 20:46] VITALS: BP 152/68; PULSE 84; RESP 20
[2019-03-06] MEDS: MEGESTROL 40 MG TAB PO SCH (22:38)
[2019-03-06] MEDS: ZOLPIDEM 5 MG TAB PO PRN (23:04)
[2019-03-07] MEDS: ALBUTEROL HFA 8 GM INHALER INH SCH ×6 (01:12→22:40)
[2019-03-07] MEDS: DEXTROSE 5%-0.45% NACL 1,000 ML IV SCH ×2 (01:14→20:51)
[2019-03-07 02:36] VITALS: BP 152/70; PULSE 81; RESP 18
[2019-03-07] MEDS: PANTOPRAZOLE (EC) 40 MG TAB PO SCH ×2 (06:06→17:54)
[2019-03-07 08:12] VITALS: BP 135/67; PULSE 81; RESP 20
[2019-03-07] MEDS: POLYETHYLENE GLYCOL 17 GM PACKET PO SCH (09:00)
[2019-03-07] MEDS: BUDESONIDE (NEB) 0.5MG/2ML AMP HHN SCH ×2 (09:02→19:18)
[2019-03-07] MEDS: MEGESTROL 40 MG TAB PO SCH ×2 (09:56→20:44)
[2019-03-07] MEDS: MEROPENEM 500MG/50 ML (PMX) 50 ML IVPB SCH ×2 (09:56→20:43)
[2019-03-07] MEDS: SPIRONOLACTONE 50 MG TAB PO SCH (09:57)
[2019-03-07] MEDS: BENAZEPRIL 10 MG TAB PO SCH ×2 (09:57→20:44)
[2019-03-07] MEDS: DOCUSATE SODIUM 100 MG CAP PO SCH (10:19)
[2019-03-07 14:19] VITALS: BP 136/70; PULSE 86; RESP 20
[2019-03-07] MEDS ORDERED: MAGNESIUM SULFATE 2 GM/50 ML 50 ML IVPB ONE (18:30)
[2019-03-07 21:01] VITALS: BP 132/68; PULSE 91; RESP 20
[2019-03-08] MEDS: ALBUTEROL HFA 8 GM INHALER INH SCH ×6 (01:00→21:00)
[2019-03-08 02:20] VITALS: BP 122/67; PULSE 91; RESP 20
[2019-03-08] MEDS: PANTOPRAZOLE (EC) 40 MG TAB PO SCH ×2 (05:39→17:11)
[2019-03-08 08:00] VITALS: BP 140/72; PULSE 88; RESP 18
[2019-03-08] MEDS: BUDESONIDE (NEB) 0.5MG/2ML AMP HHN SCH ×2 (08:32→19:20)
[2019-03-08] MEDS: MEGESTROL 40 MG TAB PO SCH ×2 (09:58→20:19)
[2019-03-08] MEDS: SPIRONOLACTONE 50 MG TAB PO SCH (09:58)
[2019-03-08] MEDS: DOCUSATE SODIUM 100 MG CAP PO SCH (09:58)
[2019-03-08] MEDS: POLYETHYLENE GLYCOL 17 GM PACKET PO SCH (09:58)
[2019-03-08] MEDS: BENAZEPRIL 10 MG TAB PO SCH ×2 (09:58→20:19)
[2019-03-08] MEDS ORDERED: MAGNESIUM SULFATE 2 GM/50 ML 50 ML IVPB ONE (12:00)
[2019-03-08 14:00] VITALS: BP 114/58; PULSE 92; RESP 16
[2019-03-08] MEDS: ZOLPIDEM 5 MG TAB PO PRN (20:22)
[2019-03-08 20:37] VITALS: BP 133/72; PULSE 86; RESP 20
[2019-03-09] MEDS: ALBUTEROL HFA 8 GM INHALER INH SCH ×6 (00:40→20:57)
[2019-03-09 02:07] VITALS: BP 129/58; PULSE 89; RESP 20
[2019-03-09] MEDS: PANTOPRAZOLE (EC) 40 MG TAB PO SCH ×2 (05:41→17:56)
[2019-03-09 08:00] VITALS: BP 123/67; PULSE 87; RESP 20
[2019-03-09] MEDS: BUDESONIDE (NEB) 0.5MG/2ML AMP HHN SCH ×2 (08:07→20:40)
[2019-03-09] MEDS: SPIRONOLACTONE 50 MG TAB PO SCH (09:40)
[2019-03-09] MEDS: POLYETHYLENE GLYCOL 17 GM PACKET PO SCH (09:40)
[2019-03-09] MEDS: DOCUSATE SODIUM 100 MG CAP PO SCH (09:41)
[2019-03-09] MEDS: MEGESTROL 40 MG TAB PO SCH ×2 (09:41→20:55)
[2019-03-09] MEDS: BENAZEPRIL 10 MG TAB PO SCH ×2 (09:41→20:56)
[2019-03-09 14:00] VITALS: BP 121/60; PULSE 92; RESP 17
[2019-03-09 20:00] VITALS: BP 128/67; PULSE 90; RESP 18
[2019-03-09] MEDS: ZOLPIDEM 5 MG TAB PO PRN (22:53)
[2019-03-10] MEDS: ALBUTEROL HFA 8 GM INHALER INH SCH ×6 (00:18→21:12)
[2019-03-10 02:00] VITALS: BP 116/70; PULSE 90; RESP 17
[2019-03-10] MEDS: PANTOPRAZOLE (EC) 40 MG TAB PO SCH ×2 (05:23→17:17)
[2019-03-10 08:00] VITALS: BP 127/71; PULSE 101; RESP 16
[2019-03-10] MEDS: BUDESONIDE (NEB) 0.5MG/2ML AMP HHN SCH ×2 (08:01→22:41)
[2019-03-10] MEDS: BENAZEPRIL 10 MG TAB PO SCH ×2 (08:35→21:12)
[2019-03-10] MEDS: POLYETHYLENE GLYCOL 17 GM PACKET PO SCH (08:35)
[2019-03-10] MEDS: DOCUSATE SODIUM 100 MG CAP PO SCH (08:35)
[2019-03-10] MEDS: SPIRONOLACTONE 50 MG TAB PO SCH (08:36)
[2019-03-10] MEDS: MEGESTROL 40 MG TAB PO SCH ×2 (08:36→21:12)
[2019-03-10 14:00] VITALS: BP 111/61; PULSE 91; RESP 16
[2019-03-10 20:29] VITALS: BP 108/62; PULSE 95; RESP 18
[2019-03-10] MEDS: ZOLPIDEM 5 MG TAB PO PRN (23:19)
[2019-03-11] MEDS: ALBUTEROL HFA 8 GM INHALER INH SCH ×6 (01:00→21:03)
[2019-03-11 02:18] VITALS: BP 148/78; PULSE 93; RESP 19
[2019-03-11] MEDS: PANTOPRAZOLE (EC) 40 MG TAB PO SCH ×2 (05:41→17:20)
[2019-03-11 08:00] VITALS: BP 123/60; PULSE 90; RESP 16
[2019-03-11] MEDS: POLYETHYLENE GLYCOL 17 GM PACKET PO SCH (08:39)
[2019-03-11] MEDS: MEGESTROL 40 MG TAB PO SCH ×2 (08:39→21:02)
[2019-03-11] MEDS: BENAZEPRIL 10 MG TAB PO SCH ×2 (08:39→21:03)
[2019-03-11] MEDS: DOCUSATE SODIUM 100 MG CAP PO SCH (08:39)
[2019-03-11] MEDS: SPIRONOLACTONE 50 MG TAB PO SCH (08:39)
[2019-03-11] MEDS: BUDESONIDE (NEB) 0.5MG/2ML AMP HHN SCH ×2 (08:59→21:28)
[2019-03-11 14:00] VITALS: BP 104/60; PULSE 94; RESP 18
[2019-03-11] MEDS ORDERED: MAGNESIUM SULFATE 2 GM/50 ML 50 ML IVPB ONE (17:30)
[2019-03-11 19:53] VITALS: BP 118/63; PULSE 93; RESP 19
== END 2019-03-11 10:15 | disposition home or self-care (01) | DRG 180 ==
LOC: E/R 20:09 → 5EC 02-28 03:34
PROVIDERS: ADMIT Internal Medicine; ATTEND Internal Medicine
DX: C78.02 Secondary malignant neoplasm of left lung (principal); J18.9 Pneumonia, unspecified organism; N17.0 Acute kidney failure with tubular necrosis; J85.0 Gangrene and necrosis of lung; K92.0 Hematemesis; N39.0 Urinary tract infection, site not specified; N17.9 Acute kidney failure, unspecified; C22.0 Liver cell carcinoma; R64 Cachexia; E87.1 Hypo-osmolality and hyponatremia; B37.49 Other urogenital candidiasis; D69.6 Thrombocytopenia, unspecified; I11.0 Hypertensive heart disease with heart failure; I50.9 Heart failure, unspecified; D64.9 Anemia, unspecified; K75.81 Nonalcoholic steatohepatitis (NASH); R33.9 Retention of urine, unspecified; B19.20 Unspecified viral hepatitis C without hepatic coma; Z68.22 Body mass index [BMI] 22.0-22.9, adult; M19.90 Unspecified osteoarthritis, unspecified site; B96.20 Unspecified Escherichia coli [E. coli] as the cause of diseases classified elsewhere; K74.69 Other cirrhosis of liver; R93.1 Abnormal findings on diagnostic imaging of heart and coronary circulation; R19.7 Diarrhea, unspecified
CPT/HCPCS: 36415; 71045; 71250; 74176; 80048; 80053; 81001; 81003; 82270; 82607; 82728; 82746; 83540; 83690; 83735; 83880; 84484; 85025; 85045; 85610; 85730; 86850; 86900; 86901; 87086; 93005; 93306; 94640; 94664; 96365; 96375; C9113; J1885; J2185; J2270; J2405; J2543; J3475; J7042